=== PATIENT | female | born 1960 | race Caucasian/White ===

== ENCOUNTER → 2017-10-26 08:32 | Outpatient (CLI) | payer MEDICAID, SELFPAY ==
--- NOTE | 2017-10-26 08:25 | DI.REPORT_ITS ---
SYMPTOM/DIAGNOSIS: F/U RT KNEE. RIGHT KNEE: Three views. Comparison 01/15/08 In the medial femoral tibial joint space there is moderate joint space narrowing. subchondral sclerosis and periarticular spurring. Small osteophytes are seen at the posterior patella and lateral femoral tibial joint space. There is a small suprapatellar joint effusion. No acute fracture, dislocation , lytic or sclerotic lesion seen. The soft tissues are unremarkable. IMPRESSION: Moderate osteoarthritis of the right knee particularly involving the medial femoral tibial joint.
== END ==
PROVIDERS: Visit Provider Student in an Organized Health Care Education/Training Program
DX: M25.561 Pain in right knee (principal); M25.461 Effusion, right knee; M17.11 Unilateral primary osteoarthritis, right knee; M25.761 Osteophyte, right knee
CPT/HCPCS: 73562

== ENCOUNTER 2017-12-24 18:48 | Outpatient (REF) | payer MEDICAID, SELFPAY ==
[2017-12-26 15:12] LABS: Chlamydia Result Negative; GC Result Negative; Specimen Description CERVIX
== END 2017-12-24 19:08 ==
LOC: LBN 18:48
DX: N89.8 Other specified noninflammatory disorders of vagina (principal); Z11.3 Encounter for screening for infections with a predominantly sexual mode of transmission
CPT/HCPCS: 87491; 87591; 87480; 87510; 87660

== ENCOUNTER 2018-01-14 09:48 | Outpatient (CLI) | payer MEDICAID, SELFPAY ==
--- NOTE | 2018-01-14 09:41 | DI.RAD_ITS ---
SYMPTOM/DIAGNOSIS: LT KNEE PAIN LEFT KNEE: There are no prior comparison exams. There is moderate narrowing of the medial femoral tibial joint space and periarticular spurring and sclerosis. The lateral joint space shows mild spurring. The patellofemoral joint appears well maintained and shows minimal spurring. No joint effusion is seen. IMPRESSION: Moderate degenerative changes of the medial femoral tibial joint.
== END 2018-01-14 10:08 ==
PROVIDERS: Visit Provider Student in an Organized Health Care Education/Training Program
DX: M25.562 Pain in left knee (principal); M17.12 Unilateral primary osteoarthritis, left knee
CPT/HCPCS: 73562

== ENCOUNTER 2018-08-06 01:46 | Outpatient (CLI) | payer MEDICAID, SELFPAY ==
[2018-08-06 08:21] LABS: ALT 29 U/L (12-78); AST 13 U/L (15-37); Albumin 3.7 g/dL (3.4-5.0); Alkaline Phosphatase 81 U/L (46-116); Anion Gap 8.8 mmol/L (3-11); BUN 11 mg/dL (7-18); Bilirubin, Total 0.4 mg/dL (0.2-1.0); C-Reactive Protein 0.83 mg/dL (0.0-0.3); CO2 28.2 mmol/L (21.0-32.0); CREATININE 0.71 mg/dL (0.55-1.02); Chloride 103 mmol/L (98-107); Glucose 91 mg/dL (70-100); Potassium 4.2 mmol/L (3.5-5.1); Sodium 140 mmol/L (136-145)
[2018-08-06 08:33] LABS: Cholesterol 253 mg/dL (50-200); HDL Cholesterol 47 mg/dL (40-60); LDL CHOLESTEROL 166 mg/dL (<100); Triglyceride 202 mg/dL (30-150)
[2018-08-07 10:12] LABS: Rheumatoid Factor <8 IU/mL (<12.5)
== END 2018-08-06 02:06 ==
DX: E66.9 Obesity, unspecified (principal); I10 Essential (primary) hypertension; J30.2 Other seasonal allergic rhinitis; K21.9 Gastro-esophageal reflux disease without esophagitis; M25.50 Pain in unspecified joint; R53.82 Chronic fatigue, unspecified; E03.9 Hypothyroidism, unspecified
CPT/HCPCS: 36415; 80053; 80061; 83721; 86140; 86431

== ENCOUNTER 2018-08-14 01:46 | Outpatient (CLI) | payer MEDICAID, SELFPAY ==
--- NOTE | 2018-08-14 08:00 | DI.MAMMO_ITS ---
SYMPTOM/DIAGNOSIS: SCREENING, Z12.31 MAMMOGRAMS: Mammograms were interpreted according to the usual protocol including computer analysis with CAD system, tomosynthesis and C view imaging. Comparison is made with exams from [id number]. The breasts are composed of scattered fibroglandular densities, breast density, Category B. A biopsy marker clip is again noted in the central left breast. There are scattered benign calcifications in the left breast. No suspicious masses or suspicious microcalcifications are seen in either breast. IMPRESSION: Category 2, negative mammogram with benign findings. Yearly screening mammography is recommended. SA ASSESSMENT OF FINDINGS: Negative with benign findings. Category 2. Patient will receive a letter notifying them of these results. BI-RADS category B. There are scattered areas of fibroglandular density.
== END 2018-08-14 02:06 ==
DX: Z12.31 Encounter for screening mammogram for malignant neoplasm of breast (principal)
CPT/HCPCS: 77063; 77067

== ENCOUNTER 2018-11-04 12:07 | Day surgery (SDC) | payer MEDICAID, SELFPAY ==
--- NOTE | 2018-11-04 07:17 | W.PM.ENDDOP ---
Date of service: 11/04/18 Time of Service: 13:25 Endoscopy Report DATE OF PROCEDURE: 11/04/18 PRE-OP DIAGNOSIS: Colon Cancer Screening and GERD POST-OP DIAGNOSIS: other (Gastritis, esophagitis, cecal polyp) PROCEDURE: 1. EGD with bx 2. Colon with polypectomy by forceps SURGEON: Jossy Brunner ANESTHESIA: other (General/ ASA 2/ Francine Hutchinson, LOGISTICS SUPERVISOR) ESTIMATED BLOOD LOSS: 3 PATHOLOGY: other (gastric bx, GE junction bx, cecal polyp) COMPLICATIONS: None DISPOSITION: same day INDICATIONS: Mrs. Woo is a pleasant 58-year-old female who was seen in the office for her first screening colonoscopy as well as to discuss an upper endoscopy for history of GERD. Risks, benefits and complications have been reviewed. Complications include but are not limited to bleeding, pain, perforation, missed small lesion/polyp, sore throat, aspiration and adverse reaction to the medications. Questions were entertained and answered to their satisfaction and they wished to proceed. No guarantees were given or implied. PREP: Miralax/Dulcolax PROCEDURE START TIME: 13:25 PROCEDURE END TIME: 14:01 COLONOSCOPY RETRACTION TIME: 12 minutes FINDINGS: Moderate Gastritis and esophagitis small cecal polyp PROCEDURE DESCRIPTION: After informed consent was obtained the patient was take to the procedure room and placed in a supine position. Monitors were applied and a time out was done. The patients name, date of , procedure type, allergies to medications and metal in their body was reviewed. A bite block was placed and the patient was sedated. Once sedated and comfortable the gastroscope was advanced through the oropharynx which was grossly normal into the esophagus. The proximal and mid-esophagus were normal. In the distal esophagus there was moderate inflammation noted. The scope was advanced into the stomach and through the pylorus into the 3rd portion of the duodenum. The duodenum was noted to be normal. The scope was retracted back into the stomach and biopsies were done to rule out H. pylori. There were a couple of shallow ulcers. The scope was retroflexed. The cardia and fundus were noted to be normal. There was no hiatal hernia noted. The scope was retracted back into the esophagus and biopsies were done of the GE junction to rule out Rankin's. The Z line was regular. The GE junction was at 35 cm. While the patient was still sedated they were placed in a left decubitous position. A rectal exam was done. External exam was normal. Internal exam revealed a normal sphincter tone and no palpable masses. The scope was then introduced and retro-flexed. No internal hemorrhoids, masses or polyps were identified. The scope was then advanced to the cecum without difficulty. The TI and appendiceal orifice were identified. The prep was adequate. The scope was then slowly retracted over 12 minutes back into the rectum. One polyp was removed with cold forceps in the cecum. The scope was removed and the patient was woken up and taken back to Same day surgery in stable condition. The patient tolerated the procedure well and there were no immediate complications. Follow up: Follow up in the office in 2 weeks.
--- NOTE | 2018-11-04 07:20 | W.PM.DSUDISC ---
Discharge Plan Disposition Patient Disposition: HOME Condition: Good Discharge Details Reason For Visit: Colon Cancer Screening, GERD Attending Provider: Jossy Brunner Primary Care Provider: Darcie Cedeno Home Meds and New Rx's Prescriptions: New omeprazole 20 mg capsule,delayed release(DR/EC) 20 mg PO BID Qty: 60 RF: 0 Continued benzonatate [Tessalon Perles] 100 mg capsule 100 mg PO BID-TID PRN (Reason: cough) Qty: 60 RF: 0 meloxicam 15 mg tablet 15 mg PO DAILY Qty: 30 RF: 0 pravastatin 20 mg tablet 20 mg PO DAILY Qty: 90 RF: 3 lisinopril 10 mg tablet 10 mg PO DAILY Qty: 90 RF: 3 cetirizine [Zyrtec] 10 MG tablet 1 tab PO DAILY Qty: 90 RF: 4 EXCEDRIN MIGRAINE TABLET 1 EACH tablet 2 ea PO daily prn RF: 0 multivitamin with minerals [Hair,Skin and Nails] 1 EACH tablet 1 ea PO DAILY RF: 0 acetaminophen [Tylenol Extra Strength] 500 MG tablet 1,000 mg PO Q4H PRN RF: 0 halobetasol propionate 0.05 % cream 1 applic TP BID Qty: 50 RF: 1 Discontinued omeprazole 20 mg tablet,delayed release (DR/EC) 20 mg PO DAILY RF: 0 polyethylene glycol 3350 17 gram/dose powder 238 g PO ONCE Qty: 238 RF: 0 bisacodyl [Dulcolax (bisacodyl)] 5 mg tablet,delayed release (DR/EC) 5 mg PO ONCE Qty: 4 RF: 0 Discharge Instructions Instructions: Colonoscopy (GEN), Upper Endoscopy (GEN), Colorectal Polyps (GEN), Gastritis (ED), Diet for Stomach Ulcers and Gastritis (ED), Esophagitis (ED) Additional Instructions: Findings: Inflammation of the stomach and esophagus. Possibly some small shallow ulcers in the stomach Small polyp in the colon. Follow up: 2 weeks Other: The Meloxicam that you take daily may be giving you some of your Heart Burn symptoms. if you have to take it, take it with food. Try increasing the Omeprazole to 20 mg 2 x a day and see if this helps. Please call if you develop: fevers >101.5 Nausea or Vomiting Abdominal pain that is not transient DAY SURGERY UNIT POST COLONOSCOPY INSTRUCTIONS 1. Because there will be medication in your system for the next 24 hours, you may feel a little sleepy. Your coordination will be affected. Therefore: a. Do not drive or operate dangerous equipment for 24 hours. b. Do not drink alcohol beverages for 24 hours (not even beer). c. Plan to go home and rest for the day. 2. Generally there are no restrictions on your activity after a day or so has gone by, but you may feel a bit fatigued for a few days. 3 After you arrive home you may have a light meal and return to a normal diet as you can tolerate it without feeling sick to your stomach. 4. After surgery, you may feel pain or discomfort. This should be only transient, but if it persists please contact your doctor. 5. If there are any questions regarding the findings of your procedure, please feel free to contact your doctor. 6. If you are unable to contact your doctor with a problem, contact the hospital at [phone]. 7. Continue all your regular medications unless directed otherwise. I understand the above instructions and have no questions. Signature of Patient or Responsible Adult Escort Date/Time Name of Responsible Adult Escort Signature of Nurse Date/Time Activity:: Activity as Tolerated Diet:: low acid Discharge Orders Discharge Orders: Discharge Order (Routine); Ordered 11/04/18 Ordered By: Jossy Brunner DS: Diagnosis Discharge Diagnosis (1) S/P colonoscopy: (2) H/O esophagogastroduodenoscopy: (3) Gastritis determined by endoscopy: (4) Colorectal polyp detected on colonoscopy:
[2018-11-04 12:32] VITALS: BP 136/100; PULSE 92; RESP 18; TEMP 36.6; O2SAT 97
[2018-11-04] MEDS: Lactated Ringers 1,000 ML 80 ML IV (12:40)
--- NOTE | 2018-11-04 13:29 | STOM_PTH ---
PATIENT: Ehsan Woo V LOC: [facility] U#:[id number] AGE/SX: 58/F ROOM: RE11/04/[address]: Jossy Brunner MD : [id number] BED: DIS: 11/04/2018 SPEC #: [id number] RECD: 11/04/18 17:51 STATUS: GINGER RE #: [id number] LUIS: 11/04/18 13:[address]: Jossy Brunner DEPT: Surgical Specimen RECD BY: Em Mckeon ENTERED: 11/04/18 17:52 SP TYPE: STOMACH OTHR DR: Darcie Cedeno APRN Tissues: 1 - STOMACH BIOPSY 2 - ESOPHAGUS BIOPSY 3 - BIOPSY BOWEL Procedures: GROSS AND MICRO LEVEL 4 Comments: [id number]
[2018-11-04 14:40] VITALS: BP 136/80; PULSE 63; RESP 18; TEMP 36.3; O2SAT 97
== END 2018-11-04 15:14 | disposition home or self-care (01) ==
LOC: SUR 12:08
PROVIDERS: Visit Provider Surgery
PROC: (CPT 45380; principal; 2018-11-04 13:00)
DX: Z12.11 Encounter for screening for malignant neoplasm of colon (principal); K21.0 Gastro-esophageal reflux disease with esophagitis; K31.9 Disease of stomach and duodenum, unspecified; K22.70 Barrett's esophagus without dysplasia; D12.0 Benign neoplasm of cecum; K25.9 Gastric ulcer, unspecified as acute or chronic, without hemorrhage or perforation; I10 Essential (primary) hypertension
CPT/HCPCS: 45380; 43239; 88305

== ENCOUNTER 2018-11-11 10:03 | Outpatient (CLI) | payer MEDICAID, SELFPAY ==
--- NOTE | 2018-11-11 08:43 | DI.RAD_ITS ---
SYMPTOM/DIAGNOSIS: LEFT FOOT PAIN LEFT FOOT: 11/11 Three views were obtained. No significant bony or soft tissue abnormality is seen apart from mild degenerative changes of the IP joints.
== END 2018-11-11 10:23 ==
PROVIDERS: Visit Provider Physician Assistant
DX: M79.672 Pain in left foot (principal); M19.072 Primary osteoarthritis, left ankle and foot
CPT/HCPCS: 73630

== ENCOUNTER 2019-01-16 11:57 | Outpatient (CLI) | payer MEDICAID, SELFPAY ==
--- NOTE | 2019-01-16 10:30 | DI.US_ITS ---
EXAM: US LOWER EXTREMITY VENOUS LT CLINICAL HISTORY: leg edema left, R60.0, ? DVT TECHNIQUE: Ultrasound performed using standard protocol. COMPARISON: LEFT BREAST ULTRASOUND from 08/14/2012 FINDINGS: There is no evidence of DVT.
== END 2019-01-16 12:17 ==
PROVIDERS: Visit Provider Nurse Practitioner
DX: R60.0 Localized edema (principal)
CPT/HCPCS: 93971

== ENCOUNTER 2019-03-13 10:13 | Outpatient (CLI) | payer MEDICAID, SELFPAY ==
--- NOTE | 2019-03-13 10:41 | DI.RAD_ITS ---
EXAM: XR STANDING ALIGNMENT CLINICAL HISTORY: pre-operative planning for TKA TECHNIQUE: COMPARISON: No exams were available for comparison FINDINGS: Standing alignment views were obtained with at AP views of both lower extremities. There are mild de generative changes of both hips. There are severe degenerative changes of both knees predominantly i nvolving medial tibiofemoral joints. IMPRESSION:
== END 2019-03-13 10:33 ==
PROVIDERS: PCP Nurse Practitioner; Visit Provider Physician Assistant
DX: M17.0 Bilateral primary osteoarthritis of knee (principal); M16.0 Bilateral primary osteoarthritis of hip
CPT/HCPCS: 77073

== ENCOUNTER 2019-04-01 08:55 | Outpatient (CLI) | payer MEDICAID, SELFPAY ==
--- NOTE | 2019-04-01 07:59 | HPE_ITS ---
Assessment and Plan Assessment and plan (1) Osteoarthritis of right knee: Status: Chronic Assessment and plan: Plan: Educated patient on surgery covering surgical technique, recovery process, benefits and risks including but not limited to risk of infection, blood clot, damage to soft tissue/blood vessels/nerves in detail. After discussion patient gives verbal understanding of risks and elects to proceed with scheduling surgery. Patient and her had opportunity to have questions answered to their satisfaction. They will contact office if issues arise. Patient will continue to be scheduled for right total knee replacement with Dr. Bills. Qualifiers: Osteoarthritis type: primary Qualified Code(s): M17.11 - Unilateral primary osteoarthritis, right knee History of Present Illness Narrative: Ms. Woo is a 58-year-old female who presents to clinic with her for pre-operative visit for scheduled left TKA - but she desires her right knee to be done first. She continues to describe bilateral knee pain that is slightly worse in the right knee. Patient now describes bilateral knee pain as a diffuse constant aching pain. Pain continues to be aggravated with prolonged walking, when ascending stairs and in the evening. 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 Due to her blood pressure states she is only taking Tylenol extra strength as needed. Previously she has tried restricting activity, strengthening exercises, anti-inflammatory medication as well as series of injections without long lasting relief. Patient denies any recent falls or injuries. She denies muscle weakness, numbness or tingling. Due to her continued symptoms she was offered and elected to proceed with surgical intervention. Pertinent Surgical Information Last Sunday patient states that she had a gas bubble sensation in the center of her chest that felt like increased pressure when she woke up. Sensation was located in the center of her chest; denies radiation of discomfort. In addition states she experienced lightheadedness. States sensation lasted for a few hours before resolving without intervention. Discomfort did not worsen with activity. Reports Sunday was a bad day at work and she didn't want to go to work on Sunday. She continues to elaborate reporting numerous stories regarding her tension-filled work environment including being worried about her patient's safety and bad relationships among her bosses. Although, she denies any significant anxiety when she woke up that morning, she does report that she did have a strong desire to not attend work - I wanted to call out. States she has previously had a similar episode about 17 years ago that required over night in the hospital without any diagnosis; reports the episode was much more severe including dyspnea at rest, rapid pulse and her heart felt heavy. Denies any additional symptoms with her recent episode - please see negative cardiac ROS. 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 Denies any cardiac symptoms with those activities. Reports an intermittent stabbing pain in her left breast that is under the skin since having mastitis. Reports sensation lasts for about an hour before resolving. States on a monthly frequency for the last 34 (thirty-four) years. Denies any left sided deep chest pain; denies any additional cardiac history. Please see ROS for denies list of cardiac ROS. Based on patient's history and physical examination I do not see any obvious signs for ordering any additional work-up. However, due to patient's reported concerns the nurse mine safety director department was contacted. Thoroughly discussed patient's case in detail. Nurse mine safety director team will meet with patient if they deem necessary and order any additional work-up that they require. She thinks that she was told she had a gastric ulcer by her general surgeon which is why she now takes food with her medication. Please see ROS - Denies any gastrointestinal/abdominal ROS. Denies past medical history of: stroke, known cardiac issues, asthma, COPD, sleep apnea, renal issues, liver issues, hepatitis, gastrointestinal ulcers, bleeding disorders, seizures, anxiety, diabetes, autoimmune disorders, thyroid issues Denies prior complications from surgery or anesthesia. Review of Systems Constitutional Constitutional: Denies fever(s), Denies frequent falls and Reports headache(s) Eyes Eyes: Denies change in vision ENT Ears, Nose, Mouth, and Throat: Denies dizziness, Reports ear discharge (reports ear infection in January - has fully resolved), Reports headache(s), Denies epistaxis, Reports nasal discharge (clear discharge due to allergies; no change) and Denies sore throat Cardiovascular Cardiovascular: Denies chest pain, Denies chest pain at rest, Denies chest pain with activity, Denies diaphoresis, Denies syncope, Denies rapid heart rate, Denies irregular heart rhythm, Reports lightheadedness, Denies radiating jaw, neck or arm pain, Denies palpitations, Denies dyspnea, Reports dyspnea on exertion (due to increased weight with increased walking activity), Denies orthopnea, Denies paroxysmal nocturnal dyspnea and Denies slow heart rate Respiratory Respiratory: Reports cough (dry cough), Denies dyspnea, Reports dyspnea on exertion (due to increased weight with increased walking activity) and Denies wheezing Gastrointestinal Gastrointestinal: Denies abdominal pain, Denies melena, Denies hematochezia, Denies constipation, Denies diarrhea, Denies nausea and Denies vomiting Genitourinary Genitourinary: Denies hematuria, Denies dysuria and Denies urinary urgency Musculoskeletal Musculoskeletal: Reports as per HPI, Denies numbness and Denies tingling Neurologic Neurologic: Denies dizziness, Denies syncope, Denies frequent falls, Reports headache(s), Denies numbness and Denies tingling Psychiatric Psychiatric: Denies anxiety and Denies depression Endocrine Endocrine: Denies palpitations Allergic/Immunologic Allergic/Immunologic: Denies wheezing [facility] Medical History (Updated 04/01/19 @ 09:17 by Luis Fernando Maher) Rankin's esophagus determined by biopsy (Acute ~11/04/18) As per patient states she does not have it Colorectal polyp detected on colonoscopy (Acute) Concern about sexually transmitted disease in female without diagnosis (Resolved) Elevated cholesterol (Chronic) Essential hypertension (Chronic) Gastritis determined by endoscopy (Acute ~11/04/18) GERD (gastroesophageal reflux disease) (Acute 12/22/13) PT. STATES HORRIBLE GAG REFLEX Obesity (Chronic) Osteoarthritis of left knee (Chronic) Injected: 08/09/2018 Synvisc: 09/23/2018 Osteoarthritis of right knee (Chronic) Injected: 08/09/2018 Synvisc: 09/23/2018 Seasonal allergic rhinitis (Acute 12/22/13) pt. reports hemp causes this Tubular adenoma of colon (Acute ~11/04/18) Vaginal dryness (Chronic) Surgical History Appendectomy section X 3 H/O esophagogastroduodenoscopy (Chronic ~11/04/18) Hysterectomy, Laproscopic (~1991) STILL HAS RIGHT OVARY S/P colonoscopy (Acute ~11/04/18) Social History (Updated 03/06/19 @ 11:29 by Shirley Carranza) Smoking/Tobacco Use Status: Former Tobacco Use Quit Date: 03/26/02 Tobacco: How many years used: 20 Second Hand Exposure: Yes Alcohol Intake: never Drug use: Never Substance use type: does not use Caregiver/Support person: No Foster care: No Household members: spouse Housing: house Communication Needs: None Do you need help understanding health information?: Rarely Pets and animals: Yes Pets and animals: cat(s) and dog(s) Sexually active: No Do you think of yourself as: straight/heterosexual Current gender identity: female What is your relationship status?: How often do you talk on the phone with friends or family?: decline to answer How often do you get together with friends or relatives?: decline to answer How often do you attend congregation or rastafarian services?: decline to answer Do you belong to any clubs or organized social groups?: no Panel score (0-1 are the most socially isolated patients): 1 What type of physical activity do you participate in: decline to answer Duration: decline to answer Frequency: decline to answer Rachel/Zoroastrianism: Denominational Special rachel needs: Yes Helmet use: No Drive intox or ride w/intox charter and tour bus driver: No Additional Social history: UNABLE TO OBTAIN ANSWER, SPOUSE IN ROOM Meds Home Medications and Allergies Home Medications Medication Instructions Recorded Confirmed Type cetirizine [Zyrtec] 1 tab PO DAILY #90 tab 06/26/12 04/01/19 History Excedrin Migraine Tablet 2 ea PO daily prn 03/24/13 04/01/19 History multivitamin with minerals 1 ea PO DAILY 08/01/17 04/01/19 History [Hair,Skin and Nails] acetaminophen [Tylenol Extra 1,000 mg PO Q4H PRN tab-cap 10/26/17 04/01/19 History Strength] pravastatin 20 mg tablet 20 mg PO DAILY #90 tab 08/08/18 04/01/19 Rx meloxicam 15 mg tablet 15 mg PO DAILY #30 tab 11/11/18 04/01/19 Rx omeprazole 20 mg capsule,delayed 20 mg PO BID #60 cap 11/29/18 04/01/19 Rx release lisinopril 20 mg tablet 20 mg PO DAILY #90 tab 03/11/19 04/01/19 Rx Allergies Allergy/AdvReac Type Severity Reaction Status Date / Time adhesive Allergy Intermediate SKIN Verified 04/01/19 09:27 RASH/blisters codeine AdvReac Intermediate NAUSEA Verified 04/01/19 09:27 NSAIDS (Non-Steroidal AdvReac Unknown GI Verified 04/01/19 09:27 Anti-Inflamma oxycodone AdvReac Unknown LOOPY Verified 04/01/19 09:27 hemp Allergy sneezing, Uncoded 04/01/19 09:27 coughing Perfume AdvReac Mild Sinus Uncoded 04/01/19 09:27 congestion Exam Const General: cooperative and no acute distress [facility] Head: normal to inspection, normocephalic and atraumatic Ears: external ears normal General nose exam: external nose normal and no nasal discharge Face and sinus: face symmetric Mouth: oral mucosae normal, lip normal, tongue normal and moist mucous membranes Teeth and gingiva: dentition normal Throat: posterior oropharynx normal Eyes General: appearance normal, both eyes and all related structures Pupils: PERRL EOM: EOM intact bilaterally Neck Neck: trachea midline Carotids: normal carotid upstroke Lymphatic: no lymphadenopathy noted Resp Effort & Inspection: normal respiratory effort and able to speak in complete sentences Auscultation: clear to auscultation bilaterally, no rales, no rhonchi and no wheezes Cardio Rate: regular rate Heart Sounds: S1 normal, S2 normal and no murmurs Pulses: radial pulses present bilaterally GI Palpation: soft, no hepatosplenomegaly and nontender Auscultation: normal bowel sounds Skin General skin exam: no rashes or lesions noted Results Labs Result diagrams: 04/01/19 10:35 04/01/19 10:35
[2019-04-01 10:48] LABS: HCT 40.4 % (36.0-46.0); HGB 13.2 g/dL (12.0-15.5); Mean Corp. HGB Concentration 32.7 g/dL (32.0-36.0); Mean Corpuscular Hemoglobin 28.5 pg (27.0-33.0); Mean Corpuscular Volume 87.3 fL (80-95); Mean Platelet Volume 9.7 fL (8.0-11.0); Platelet Count 342 x1000/uL (130-400); RBC 4.63 m/cumm (4.00-5.20); RBC Distribution Width 12.6 % (11.7-14.6); White Blood Cell Count 7.86 k/cumm (4.4-10.8)
[2019-04-01 11:35] LABS: ALT 28 U/L (14-59); AST 22 U/L (15-37); Albumin 3.8 g/dL (3.4-5.0); Alkaline Phosphatase 90 U/L (46-116); Anion Gap 8.2 mmol/L (3-11); BUN 10 mg/dL (7-18); Bilirubin, Total 0.2 mg/dL (0.2-1.0); CO2 29.8 mmol/L (21.0-32.0); CREATININE 0.73 mg/dL (0.55-1.02); Calcium 8.8 mg/dL (8.5-10.1); Calculated LDL 117 mg/dL; Chloride 104 mmol/L (98-107); Cholesterol 199 mg/dL (<200); Glucose 100 mg/dL (74-106); HDL Cholesterol 41 mg/dL (40-60); Potassium 4.5 mmol/L (3.5-5.1); Sodium 142 mmol/L (136-145); Total Protein 7.1 g/dL (6.4-8.2); Triglyceride 205 mg/dL (<150)
== END 2019-04-01 09:15 ==
PROVIDERS: PCP Nurse Practitioner; Visit Provider Student in an Organized Health Care Education/Training Program
DX: M25.562 Pain in left knee (principal); M17.12 Unilateral primary osteoarthritis, left knee; E78.00 Pure hypercholesterolemia, unspecified; I10 Essential (primary) hypertension; K21.9 Gastro-esophageal reflux disease without esophagitis; Z01.818 Encounter for other preprocedural examination; Z01.812 Encounter for preprocedural laboratory examination
CPT/HCPCS: 36415; 80053; 80061; 85027; NC; 93005; 93010

== ENCOUNTER 2019-04-08 05:53 | Inpatient (IN) | payer MEDICAID, SELFPAY ==
[2019-04-01 08:48] VITALS: BP 118/84; PULSE 78; TEMP 36.7; O2SAT 97
[2019-04-01 09:37] VITALS: BP 118/84; PULSE 78; TEMP 36.7; O2SAT 97
--- NOTE | 2019-04-01 11:31 | CMPROGNOTE_ITS ---
- If Service Date Differs Date of service: 04/01/19 Time of Service: 11:31 Care Management Progress Note CM was consulted to meet with Katherine during her pre op appointment for her R knee replacement scheduled for 04/08/[address] Bills. Katherine's , Manuel, was in the room also. 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 Katherine and Manuel live together in a ranch style home with two steps to get in. They have a beagle and two cats. They have five adult children who live in various places, but not locally. She reported that Manuel would be her main support post surgically. Katherine reported that she recently switched providers to Melita Anne at [facility]. She has [facility] for health insurance. She reported that she has filled out an AD, but it did not get registered with the [facility]. She stated that she would bring in a copy for her [facility] chart. She stated that she has crutches, a cane and a regular walker (no wheels). CM advised that PT often recommends a FWW, which may be covered by her insurance. CM stated that obtaining a FWW would be coordinated by CM prior to discharge. Katherine expressed interest in signing up for the portal, which CM will address at Katherine's initial assessment.
[2019-04-02] MEDS: Ketorolac 30 MG/ML VIAL (09:55)
[2019-04-08] VITALS (13 sets, daily range): BP systolic 98–147; BP diastolic 48–94; PULSE 58–91; RESP 13–19; TEMP 36.4–37; O2SAT 18–96
[2019-04-08] MEDS: Lactated Ringers 1,000 ML 80 ML IV ×2 (06:50→12:22)
[2019-04-08] MEDS: Acetaminophen 500 MG TAB 1000 MG PO ×3 (07:01→19:40)
[2019-04-08] MEDS: Bupivacaine 0.5% Pres-Free 30 ML VIAL (07:21)
[2019-04-08] MEDS: ceFAZolin 2 GM/50 ML BAG IVPB (07:45)
[2019-04-08] MEDS: Normal Saline 20 ML VIAL (08:55)
[2019-04-08] MEDS: Bupivacaine 0.25% Pres-Free 30 ML VIAL (08:55)
--- NOTE | 2019-04-08 10:24 | W.PM.OP ---
Date of service: 04/08/19 Time of Service: 10:24 Operative Note Operative Note DATE OF PROCEDURE: 04/08/19 PRE-OP DIAGNOSIS: Right Knee Osteoarthritis POST-OP DIAGNOSIS: same PROCEDURE: Right Total Knee Replacement SURGEON: Rick Bills BOILER TESTING TECHNICIAN: Eulalia Burris ANESTHESIA: regional and spinal ESTIMATED BLOOD LOSS: 250 PATHOLOGY: none sent TOURNIQUET TIME: 31 COMPLICATIONS: None Patient was transported to: PACU Patient's condition: stable Implants: 1. Depuy Attune Posterior Stabilized Femoral Component, Size 4 2. Depuy Attune Fixed Platform Tibial Component, Size 3 3. Depuy Attune 4x8 Fixed, Stabilized Poly 4. Depuy Attune Patellar Component, Size 32mm Indications: I have seen Katherine in clinic for symptoms of RIGHT knee arthritis, confirmed with radiographic findings. Katherine has exhausted nonoperative methods and was having significant limitations in daily function and desired better function and less pain. I discussed the technical details of a knee replacement. I explained the risks of the procedure to include, but not limited to, bleeding, infection, pain, stiffness, fracture, damage to nerves and vessels, damage to muscles and tendons, loosening, need for repeat procedure, blood clot and cardiopulmonary demise. Despite these risks, Katherine elected to proceed. Findings: There was significant signs of arthritis throughout the knee,focused mostly in the medial compartment. Procedure Description: Katherine was greeted in the preoperative holding area where the correct side was identified and marked. The consent was reviewed with the patient and signed. The history and physical was updated. All questions were answered. Preoperative mediacations were administered: Acetaminophen 1000mg, Celebrex 400mg, and Gabapentin 300mg. An adductor canal block was then administered by the anesthesia team in the PACU. Katherine was taken back to the operating room. A spinal anesthestic was then administered. The patient was placed into the supine position on the operating room table. A nonsterile tourniquet was placed high onto the leg but only used for cementing. Posts were placed for positioning during the procedure. All bony prominences were well padded. Prophylactic antibiotics in the form of Cefazolin were administered. 1g of Tranxemic Acid was given intravenously within 30 minutes of incision. The right leg was then prepped with Chloraprep and draped in a standard fashion with impervious stockinette. A second prep with Chloraprep was performed prior to application of Iodine impregnated skin protection. A timeout to confirm correct identity, side and site, procedure, allergies, anesthesia, and medical concerns was performed. With the knee in some flexion, a midline incision was made overlying the knee. Full thickness skin flaps were raised once the extensor mechanism was encountered. These were raised medially and laterally. Any bleeding was controlled with electrocautery. Once the extensor mechanism was fully exposed, a medial parapatellar arthrotomy was performed in a flexed position. All bleeding from the arthrotomy and the geniculate arteries was coagulated. A medial subperiosteal peel was performed with electrocautery to the midcoronal plane. Due to the significant varus deformity the entire medial tibial plateau was exposed. The fat pad was removed while keeping the patellar tendon protected. The anterior distal femur synovium was removed for later visualization. The ACL and PCL were resected and the anterior horn of the lateral meniscus was transected. The knee was then flexed with the patella everted. Large osteophytes from the tibia were removed. Large osteophytes from the femur were removed. Using a step drill, and based on preoperative templating, the femoral canal was entered. This was done with a step drill without any difficulty. The intramedullary distal femoral cut guide was inserted, set to a 5 degree valgus cut and 9mm cut thickness. The distal femoral cut guide was then held in position and pinned. With the soft tissues protected, the distal cut was performed. This was passed over a few times to ensure a planar cut. I then turned attention to the tibia. The extramedullary guide was placed onto the leg. The distal aspect was slid medial to adjust for position of center of ankle and stay in line with shaft of the tibia. Approximately 3-5 degrees of posterior slope was kept in the proximal cutting guide. The center of the guide was aligned with the PCL. The stylus was used to assess cut thickness. The medial side, most involved side, was set for a 4mm cut. This was then held in position and pinned into place with 2 additional pins and a cross pin for stability. The medial and lateral collateral ligaments were protected and the cut was performed. With this completed, it was assessed and noted to be of appropriate dimensions. The guide was removed. A spacer block was inserted and the knee was brought into extension. The 6mm spacer block provided full extension, without hyperextension and with stability of both the medial and lateral collateral ligaments was assessed. The pins from the femur and the tibia were then removed. The distal femur was then sized. The anterior stylus was placed onto the lateral ridge of the anterior femur. This indicated a size 4 femur. The external rotation of the guide was adjusted to 3 degrees to match the epicondylar axis, perpendicular to Banks?s line. The 4-in-1 cutting guide was the placed. The posterior medial femur cut was evaluated and appeared of good thickness. The spacer block was inserted underneath the cutting guide and stability was confirmed in 90 degrees of flexion. An raghavendra wing was used to confirm appropriate position of the anterior cut to avoid notching. This cutting guide was ensured to be flush on the cut surface and then pinned into place with headed pins. While protecting the soft tissues, quad tendon, and collateral ligaments, the anterior and posterior cuts were performed with a saw. The central two pins were removed and the posterior and anterior chamfers were cut next. The notch-cutting guide was placed. This was pinned to lateralize the femoral component as much as possible while keeping it flush on the cut surface. This was then pinned into position. A reciprocating saw was used to make the notch cut. A rasp smoothed the cut surfaces. A bone hook was used to elevate the femur and posterior osteophytes were removed from the femur with a curved osteotome. A trial posterior stabilized femoral component was then inserted, impacted down to the cut surfaces, and the lug holes were drilled. A provisional trial tibial component was placed and the knee was brought through range of motion. The polyethylene was trialed until there was good flexion and extension with excellent stability to the medial and lateral collaterals. The patella was tracking without thumbs. The tibial cut surface was fully exposed. The medial and lateral menisci were removed. The tibia was then sized as a 3. The tibia had been previously marked during trialing to correspond to the center of the tibial component to help with rotation. The trial was aligned to this eulalia, approximately rotated to the medial 1/3rd of the tibial tubercle. The trial was pinned into place. The tibia was prepared with a reamer and a keel punch. The knee was then brought into extension and the patella was measured as 22mm. Using the patellar clamp and cut guide, this was resected to a flat surface with at least 13mm of thickness remaining. The size 32mm patella fit the best. This was oriented and then clamped into position. The lugs were drilled. The trial components were removed. The final components, except for the polyethylene were opened on the back table. The periosteal and capsular tissues, especially posteriorly, around the knee were then systematically injected with a periarticular cocktail consisting of 50cc 0.25% Marcaine, 30mg Ketorolac, 20cc of Exparal and 50cc of injectable saline. The tourniquet was then inflated to 275mmHg. The knee was thoroughly irrigated with a pulse lavage and dried. On the back table, with the implants opened, the cement was mixed. 2 batches of antibiotic laden cement were prepared with vacuum assistance. After the cement was ready a small amount was placed on to the back side of the tibial component at the keel. A small amount was placed onto the posterior flange of the femur. Cement was manual pressurized and impregnated into the cut surface of the tibia. The tibial component was then inserted into the cut surface and impacted into position. Excess cement was removed and the component was reimpacted. Again, excess cement was removed and our attention was then turned to the femur. The femoral cut surface was once again dried and cement was manually impacted into the cut surface. The femoral component was lined with the lug holes and impacted. Excess cement was removed. It was ensured to be down against the cut surface. The trial polyethylene was then inserted and the leg was brought out into full extension for the duration of the cement curing process, approximately 15min. Cement was lastly manually impacted into the cut surface of the patella and the patellar button was clamped into position and held. During this process attention was turned to the gutters of the knee and for all interfaces for any excess cement. While the cement was hardening, the knee was irrigated with Irrisept chlorhexadine solution. This was allowed to sit in the knee for 3 minutes. After the cement had finally cured, approximately 15min, the clamp was removed from the patella and the knee was taken through range of motion. A size 8mm polyethylene component provided the best range of motion and stability with less than 2mm gapping with medial and lateral stress and full extension without significant hyperextension. The patella was tracking with a no-thumbs technique. The trial poly was removed and once again the knee was checked for any loose, excess, or errant cement. The poly component was then inserted and impacted into position after cleaning and drying the tibial tray. The capsule was then reapproximated with a No. 1 Vicryl at multiple locations. The capsule was finally closed with a No. 2 Stratafix, barbed suture. The tourniquet was then released and the arthrotomy appeared watertight without significant bleeding. The second dosing of 1g TXA was started. Deep tissues were then reapproximated with 0 Vicryl and 2-0 Vicryl. The skin was closed with a running 3-0 Monocryl in a subcuticular fashion. This was reinforced with skin glue. A Mepilex silver dressing was applied along with a [id number] JEANNETTE wrap. A CryoCuff was applied. Katherine was transferred to the hospital bed without difficulty an suffering no apparent complication. Katherine has a good prognosis. Physical therapy will start today and without restrictions, weight-bearing as tolerated. Aspirin 81mg BID will be used for DVT prophylaxis.
--- NOTE | 2019-04-08 12:28 | NUR.NOTE ---
Nursing Note: 1045;Pt to room 226 via stretcher from PACU post RTKA. Pt able to slightly wiggle toes to operative foot. Pts states she feels tingly on the operative side. Pt denies pain. Lungs are clear, VSS. Cryocuff on from PACU. right leg with tammie wrap, CDI. Spouse in room. Operative leg elevated on pillow. SCD on non operative leg. Pt requesting to have a drink. LR running @ 80 ml/hr as ordered. IV sites patent.
--- NOTE | 2019-04-08 13:30 | IN_ITS ---
Date of service: 04/08/19 Time of Service: 13:30 PT Notes Physical Therapy Inpatient Initial Evaluation Date: 04/08/2019 Referring Doctor: Rick Haque MD PT Orders: PT CONSULT: S/P ortho surgery Precautions: Fall. Standard. WBAT on R LE. Patient Profile/Admitting Diagnosis: Pt is a 58-year-old female with a history of knee osteoarthritis presenting status post right TKA. PMHX: Medical History (Updated 04/01/19 @ 09:17 by Luis Fernando Maher) Rankin's esophagus determined by biopsy (Acute ~11/04/18) As per patient states she does not have it Colorectal polyp detected on colonoscopy (Acute) Concern about sexually transmitted disease in female without diagnosis (Resolved) Elevated cholesterol (Chronic) Essential hypertension (Chronic) Gastritis determined by endoscopy (Acute ~11/04/18) GERD (gastroesophageal reflux disease) (Acute 12/22/13) PT. STATES HORRIBLE GAG REFLEX Obesity (Chronic) Osteoarthritis of left knee (Chronic) Injected: 08/09/2018 Synvisc: 09/23/2018 Osteoarthritis of right knee (Chronic) Injected: 08/09/2018 Synvisc: 09/23/2018 Seasonal allergic rhinitis (Acute 12/22/13) pt. reports hemp causes this Tubular adenoma of colon (Acute ~11/04/18) Vaginal dryness (Chronic) Surgical History Appendectomy section X 3 H/O esophagogastroduodenoscopy (Chronic ~11/04/18) Hysterectomy, Laproscopic (~1991) STILL HAS RIGHT OVARY S/P colonoscopy (Acute ~11/04/18) Social History/Home Situation: Pt lives at home with her . Notes that there is one step and a small threshold into the home. Once in her home there are no stairs other than to the basement, but no reason for her to need to use. Equipment Owned/DME: Cane Subjective: Pt reports that she is not experiencing any pain with lying in bed. She notes that she has had a headache prior to surgery that is beginning to improve from a 10/10 to a 6/10. She notes that she is planning to have a left TKA as well. Objective: General Observation: Smith catheter in place, IV in LUE. Mental Status: alert and oriented x4 Pain: 0/10 at rest Vital Signs: Supine: BP 134/71 mmHg, HR 81, SpO2 96% Sitting: BP 141/87 mmHg, HR 80, SpO2 96% Standing: BP 134/74 mmHg, HR 80, SpO2 96% ROM: Right Upper Extremity: Shoulder Flexion WFL. Shoulder abduction WFL. Elbow flexion WFL. Wrist flexion WFL. Opening and closing of hand WFL. Left Upper Extremity: Shoulder Flexion WFL. Shoulder abduction WFL. Elbow flexion WFL. Wrist flexion WFL. Opening and closing of hand WFL. Right Lower Extremity: Hip flexion WFL. Hip abduction WFL. Knee flexion 90 degrees. Knee extension -20 degrees. Pt was able to complete 10 SLR without difficulty. Ankle dorsiflexion WFL. Ankle plantarflexion WFL. Left Lower Extremity: Hip flexion WFL. Hip abduction WFL. Knee flexion WFL. Ankle dorsiflexion WFL. Ankle plantarflexion WFL. Strength: Right Upper Extremity: Shoulder flexors 5/5. Shoulder abductors 5/5. Elbow flexors 5/5. Elbow extensors 5/5. Call Center Professional strong. Left Upper Extremity: Shoulder flexors 5/5. Shoulder abductors 5/5. Elbow flexors 5/5. Elbow extensors 5/5. Call Center Professional strong. Right Lower Extremity: Hip flexors 4/5. Hip abductors 5/5. Knee flexors 4+/5. Knee extensors 3-/5. Ankle dorsiflexors 5/5. Ankle plantarflexors 5/5. Left Lower Extremity: Hip flexors 5/5. Hip abductors 5/5. Knee flexors 5/5. Knee extensors 5/5. Ankle dorsiflexors 5/5. Ankle plantarflexors 5/5. Sensation: Intact as to pain and pressure on bilateral lower extremities. Bed Mobility/Transfers: Rolling independent Supine to sit independent with HOB flat Sit to supine independent with HOB flat Sit to stand SBA with cues to push up from bed Stand to sit SBA with cues to push up from bed Bed to chair SBA Chair to bed SBA Gait: Pt was able to ambulate WBAT 60 feet x2 using a two-wheeled walker. Step to pattern with decreased obdulia. Asymmetrical length and height of step. CGA by PT and wheelchair follow by student PT. Pt required a seated rest break after 60 feet of ambulation due to fatigue. Pt complains of ?aching? pain, but no significant increases in pain. Balance: Static Sitting: Normal Dynamic Sitting: Normal Static Standing: Fair Dynamic Standing: Fair Special Tests: Mobility Limitations Standardized Measure [facility] AM-PAC 6 clicks Basic Mobility Inpatient Short Form: Raw Score: 22 CMS Score: 21 deficit Informed Consent/Education: Patient instructed in purpose of PT consult and plan of care. HEP including glute sets, quadricep sets, ankle pumps. Assessment: Pt is a 58-year-old female with history of knee osteoarthritis presenting status post right TKA. At the time of initial evaluation, the patient presented with impairment level findings and functional limitation as listed below. Pt would benefit from skilled physical therapy for safe return to home. Patient presents with clinical signs and symptoms consistent with current/admitting diagnoses that have resulted to mobility limitations, gait instability and generalized weakness as demonstrated by the following impairment level findings: 1. Decreased strength to R LE hip and knee muscle groups 2. Impaired sitting/standing balance 3. Impaired activity tolerance 4. Limitation of joint range of motion in right knee Impairments are contributing to the following functional limitations: 1. Increased dependence with transfers 2. Inability to safely ambulate without assistive device and physical assistance 3. Increase completion time for mobility ADL performance 4. Increased fall risk 5. Inability to negotiate steps alone safely Patient is assessed as a 36429 moderate complexity based on the following: History: Pt is a 58-year-old female with history of knee osteoarthritis presenting status post right TKA. Examination: Demonstrable impairment in strength, balance, and range of motion with underlying impairments and functional limitations as documented above Presentation: Evolving Decision Makin moderate complexity Goals: Goals X1 week 1. Sit-Stand independent 2. Stand-Sit independent 3. Bed-Chair independent 4. Chair-Bed independent 5. Independent gait on level surface with use of least restrictive device for at least 300 feet without report of pain nor dyspnea 6. Independent stair negotiation while holding onto bilateral rails for at least 5 steps without report of pain nor dyspnea 7. Independent with home exercise program 8. Good dynamic standing balance/tolerance Plan of Care/Treatment Plan: 1-2x/day, 7 days/week x 1 week. Plan of care has been reviewed with the PRINTING SUPERVISOR providing the service under Physical Therapy direction. Initiate Physical Therapy intervention for strengthening, bed mobility, transfers, gait, stairs, balance training, use of assistive device. DISCHARGE RECOMMENDATIONS: Discharge to home with two-wheeled walker when medically cleared. TREATMENT CODE/TIME: 77286 x 45 minutes beginning at 13:30 PM. Thank you very much for this referral. Migdalia Tejada, SPT Doctor of Physical Therapy Student [facility] Supervision provided by: iMma Machado PT, DPT, CLT [facility] [place], [place]
[2019-04-08] MEDS: ceFAZolin 1 GM/50 ML BAG IVPB (14:05)
[2019-04-08] MEDS: Omeprazole 20 MG CAPCR PO (19:41)
[2019-04-08] MEDS: Aspirin E.C. 81 MG TABEC PO (19:41)
[2019-04-08] MEDS: Meloxicam 15 MG TAB PO (19:41)
[2019-04-08] MEDS: Pravastatin 20 MG TAB PO (19:41)
[2019-04-08] MEDS: ceFAZolin 1 GM/50 ML BAG 100 GM (22:02)
[2019-04-08] MEDS: Gabapentin 300 MG CAP PO (22:03)
[2019-04-09] MEDS: Lactated Ringers 1,000 ML 80 ML IV (01:25)
[2019-04-09 03:35] VITALS: BP 121/81; PULSE 82; RESP 16; TEMP 37.1; O2SAT 95
[2019-04-09] MEDS: ceFAZolin 1 GM/50 ML BAG IVPB (05:45)
[2019-04-09 07:25] VITALS: BP 115/84; PULSE 92; RESP 17; TEMP 36.4; O2SAT 95
[2019-04-09] MEDS: Acetaminophen 500 MG TAB 1000 MG PO (07:53)
[2019-04-09] MEDS: Omeprazole 20 MG CAPCR PO (07:56)
[2019-04-09] MEDS: Cetirizine 10 MG TAB PO (07:56)
[2019-04-09] MEDS: Multivitamin w/Minerals TAB 1 TAB PO (07:56)
[2019-04-09] MEDS: Aspirin E.C. 81 MG TABEC PO (07:56)
[2019-04-09] MEDS: Meloxicam 15 MG TAB PO (07:56)
--- NOTE | 2019-04-09 09:46 | PT.INTREAT ---
Date of service: 04/09/19 Time of Service: 09:47 PT Notes Inpatient Physical Therapy Treatment Note [facility] Date: 04/09/2019 PRECAUTIONS: Fall, WBAT R SUBJECTIVE: Ehsan is agreeable to participating in PT. She states that she is going home today. OBJECTIVE: PAIN: Patient c/o aching in posterior R knee with activity BED MOBILITY/TRANSFERS Sit-stand: S with cueing for safety Stand-sit: S with cueing for safety GAIT Assistive Device: FWW Weight bearing: WBAT R Assist: S Distance: 50' + 100' Deviation: Step-through gait pattern, cues for continuous FWW advancement THEREX: Patient completed a LE strengthening program, in a seated position, as per flow sheet. STAIRS: Up/down 6x4 and 2x6 using B rails step-to with supervision ASSESSMENT: Patient tolerated session with complaint of posterior knee aching with activity. She was able to tolerate a progression in gait distance with FWW support and supervision. PLAN: As per primary PT TREATMENT CODE/TIME: 25 minutes; 67488, [id number]
--- NOTE | 2019-04-09 09:56 | W.PM.DS.N ---
Date of service: 04/09/19 Time of Service: 09:56 DS: Diagnosis Discharge Diagnosis (1) Osteoarthritis of right knee: Status: Chronic Discharge Plan Disposition Patient Disposition: HOME Condition: Good Discharge Details Reason For Visit: Right Knee DJD Admit Date/Time: 04/08/19 05:53 Admit Provider: Rick Bills Attending Provider: Rick Bills Primary Care Provider: Melita Anne Hospital Course Hospital Course: Patient was admitted to the medical/surgical floor following the procedure. It was tolerated well without any notable medical, surgical, or anesthetic complications. Mobilization began postoperatively. The olivo catheter was removed and voiding spontaneously. Vitals were stable. Physical therapy worked with the patient and was cleared for discharge home. No acute medical issues. Home Meds and New Rx's Prescriptions: New aspirin 81 mg tablet,delayed release (DR/EC) 81 mg PO BID Qty: 60 RF: 0 acetaminophen 500 mg tablet 1,000 mg PO Q8H PRN (Reason: pain) Qty: 90 RF: 3 hydromorphone 2 mg tablet 2 mg PO Q4H PRN (Reason: pain) Qty: 18 RF: 0 gabapentin 300 mg capsule 300 mg PO QHS Qty: 7 RF: 0 Continued omeprazole 20 mg capsule,delayed release(DR/EC) 20 mg PO BID Qty: 60 RF: 5 cetirizine [Zyrtec] 10 mg tablet 10 mg PO DAILY Qty: 90 RF: 3 lisinopril 20 mg tablet 20 mg PO DAILY Qty: 90 RF: 3 EXCEDRIN MIGRAINE TABLET 1 EACH tablet 2 ea PO daily prn RF: 0 multivitamin with minerals [Hair,Skin and Nails] 1 EACH tablet 1 ea PO DAILY RF: 0 pravastatin 20 mg tablet 20 mg PO QPM RF: 0 meloxicam 15 mg tablet 15 mg PO DAILY Qty: 30 RF: 6 Discontinued acetaminophen [Tylenol Extra Strength] 500 MG tablet 1,000 mg PO Q4H PRN RF: 0 Discharge Instructions Additional Instructions: Dr. Bills?s Total Knee Discharge Instructions Activity: The most important activity is to walk. You should try to take short walks a few times a day. It is important that when resting you work on keeping the knee straight. Avoid putting a pillow behind the knee as this will encourage flexion. Work on range of motion exercises as provided by Physical Therapy. - Start outpatient physical therapy within 2 weeks. - You should wear the ELIZABETH hose on both legs for 2 weeks. Dressing: Keep the surgical dressing in place for at least one week. After the first week it may be removed and replace with light gauze and tape or nothing. It may get wet after 3 days but avoid soaking the dressing. If it gets wet, just lightly pat dry. Medications: - You should take Tylenol (1000mg every 6-8 hours) and anti-inflammatory Meloxicam (15mg once a day) as your primary pain control medications - You have been prescribed a stronger pain medication Hydromorphone for breakthrough pain, take as needed as prescribed. - You should continue to take your Omeprazole to help reduce stomach acid and reflux. - You also have Gabapentin to take at night for a week. This helps with some of the restlessness and sleep issues within the first week. - You will be taking Aspirin 81mg twice a day for DVT prevention unless instructed otherwise. - If you have constipation you should take Colace or Miralax (both [id number]). It takes most people 3-4 days to have a bowel movement. Follow-up: 2 weeks Referrals: Rick Bills MD [ [facility] ST[facility]FF PHYSICIAN] - Activity:: Activity as Tolerated Equipment/Supplies:: Walker Diet:: As Tolerated Discharge Orders Discharge Orders: Discharge Order (Routine); Ordered 04/09/19 Ordered By: Rick Bills DS: Summary Status at Discharge Functional status at discharge: uses cane/walker Overall status at discharge: patient is progressing back to baseline Mental Status: mental status grossly normal Speech and Movement: speech and movement normal Mood: congruent mood Affect: normal affect Exam Psych Mental Status: mental status grossly normal Speech and Movement: speech and movement normal Mood: congruent mood Affect: normal affect DS: Data Vitals/I&O Vitals and I&O: Vital Signs Temperature 36.4 C L 04/09/19 07:25 Temperature Source Tympanic 04/09/19 07:25 Pulse 92 H 04/09/19 07:25 Pulse Rhythm Regular 04/09/19 07:58 Respiratory Rate 17 04/09/19 07:25 Respiratory Effort 04/09/19 07:58 Respiratory Depth Normal 04/09/19 07:58 Respiratory Pattern Normal 04/09/19 07:58 Blood Pressure 115/84 04/09/19 07:25 Pulse Oximetry 95 04/09/19 07:25 Respiratory End-tidal CO2 36 04/08/19 10:30 Oxygen Delivery Method Room Air 04/09/19 07:25 Oxygen Flow Rate 0 04/09/19 07:25 Pain Level 1 04/09/19 07:53 Comment 04/08/19 06:00 Intake & Output 04/08/19 04/08/19 04/09/19 11:59 23:59 11:59 Intake Total 870 / 1380.667 510.667 / 2360.256 8773.333 / 2393.333 Output Total 650 / 2350 1700 / 2350 900 / 900 Balance 220 / -969.333 -1189.333 / -787.849 8756.333 / 1493.333 Weight 80.9 kg Intake: IV 870 / 1140.667 270.667 / 6263.616 5104.333 / 1413.333 Oral 240 / 240 980 / 980 Output: Urine 400 / 2100 1700 / 2100 900 / 900 Estimated Blood Loss 250 / 250 Other: Urine Color Pale Yellow Yellow Yellow Urine Appearance Clear Clear Clear Urine Odor Normal Normal Emesis Description None Voiding Methods Bedside Commode Bedside Commode PENDING SALE TO [facility] Medical History Rankin's esophagus determined by biopsy (Acute ~11/04/18) As per patient states she does not have it Colorectal polyp detected on colonoscopy (Acute) Concern about sexually transmitted disease in female without diagnosis (Resolved) Elevated cholesterol (Chronic) Essential hypertension (Chronic) Gastritis determined by endoscopy (Acute ~11/04/18) GERD (gastroesophageal reflux disease) (Acute 12/22/13) PT. STATES HORRIBLE GAG REFLEX Obesity (Chronic) Osteoarthritis of left knee (Chronic) Injected: 08/09/2018 Synvisc: 09/23/2018 Osteoarthritis of right knee (Chronic) Injected: 08/09/2018 Synvisc: 09/23/2018 Seasonal allergic rhinitis (Acute 12/22/13) pt. reports hemp causes this Tubular adenoma of colon (Acute ~11/04/18) Vaginal dryness (Chronic) Surgical History Appendectomy section X 3 H/O esophagogastroduodenoscopy (Chronic ~11/04/18) Hysterectomy, Laproscopic (~1991) STILL HAS RIGHT OVARY S/P colonoscopy (Acute ~11/04/18) Family History Mother Essential hypertension Hyperlipidemia Father , 84 Diabetes Essential hypertension Heart disease Hyperlipidemia Cancer of kidney Skin cancer Sister Diabetes Essential hypertension Depression Hyperlipidemia Asthma Sister , 49 Diabetes Essential hypertension Hyperlipidemia Lung cancer Liver cancer Sister No problems noted. Brother Diabetes Essential hypertension Hyperlipidemia Maternal Grandfather , 78 Primary tuberculosis Heart disease Paternal Grandfather , 85 Diabetes Essential hypertension Heart disease Hyperlipidemia Maternal Grandmother , 69 Essential hypertension Heart disease Hyperlipidemia Paternal Grandmother Essential hypertension Colon cancer Daughter , 8 AML (acute myeloblastic leukemia) Son No problems noted. Son No problems noted. Social History Smoking/Tobacco Use Status: Former Tobacco Use Quit Date: 03/26/02 Tobacco: How many years used: 20 Second Hand Exposure: Yes Alcohol Intake: never Drug use: Never Substance use type: does not use Caregiver/Support person: No Foster care: No Household members: spouse Housing: house Number of Children: 2 number of grandchildren: 11 Communication Needs: None Do you need help understanding health information?: Rarely Pets and animals: Yes Pets and animals: cat(s) and dog(s) Sexually active: No Do you think of yourself as: straight/heterosexual Current gender identity: female What is your relationship status?: How often do you talk on the phone with friends or family?: decline to answer How often do you get together with friends or relatives?: decline to answer How often do you attend anabaptism or holiness services?: decline to answer Do you belong to any clubs or organized social groups?: no Panel score (0-1 are the most socially isolated patients): 1 What type of physical activity do you participate in: decline to answer Duration: 15-30 minutes/day Frequency: 1-2 times per week Rachel/Orthodoxy: Pentecostalism Special rachel needs: No Helmet use: No Drive intox or ride w/intox food mobile driver: No Do you feel safe at home: Yes Additional Social history: UNABLE TO OBTAIN ANSWER, SPOUSE IN ROOM
--- NOTE | 2019-04-09 13:07 | PDOC.CMIN ---
- If Service Date Differs Date of service: 04/09/19 Time of Service: 13:07 Care Management Initial Assess REASON FOR HOSPITALIZATION:: Right Knee DJD PAST MEDICAL HISTORY/PAST SURGICAL HISTORY:: Medical History (Updated 04/01/19 @ 09:17 by Luis Fernando Maher). Rankin's esophagus determined by biopsy (Acute ~11/04/18). As per patient states she does not have it. Colorectal polyp detected on colonoscopy (Acute). Concern about sexually transmitted disease in female without diagnosis (Resolved). Elevated cholesterol (Chronic). Essential hypertension (Chronic). Gastritis determined by endoscopy (Acute ~11/04/18). GERD (gastroesophageal reflux disease) (Acute 12/22/13). PT. STATES HORRIBLE GAG REFLEX. Obesity (Chronic). Osteoarthritis of left knee (Chronic). Injected: 08/09/2018. Synvisc: 09/23/2018. Osteoarthritis of right knee (Chronic). Injected: 08/09/2018. Synvisc: 09/23/2018. Seasonal allergic rhinitis (Acute 12/22/13). pt. reports hemp causes this. Tubular adenoma of colon (Acute ~11/04/18). Vaginal dryness (Chronic). Surgical History . Appendectomy. section. X 3. H/O esophagogastroduodenoscopy (Chronic ~11/04/18). Hysterectomy, Laproscopic (~1991). STILL HAS RIGHT OVARY. S/P colonoscopy (Acute ~11/04/18) PREVIOUS FUNCTIONAL STATUS/SOCIAL/FAMILY SUPPORTS:: Katherine lives in [place] with her Manuel in a single story home. They have five adult children who live in various places, not local. Manuel is identified as her main support. 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 She is otherwise independent at baseline. CURRENT FUNCTIONAL STATUS:: Katherine was sitting up in her chair when MARIA DE JESUS met with her. She reported that she would be leaving soon, as she was already discharged. MARIA DE JESUS spoke with her about her DME needs. She stated that she has a standard walker (no wheels) but it is not functional at this time. MARIA DE JESUS coordinated a FWW through [facility] for her to use upon discharge. Katherine was agreeable to having a new FWW, as it was recommended by PT. Katherine stated that she was feeling good and was eager to be home. ADVANCE DIRECTIVES:: Manuel, her , is listed as agent. Has patient been provided with information about the portal?: Yes Did the patient sign up for the portal?: No (Another time) CODE STATUS:: Full Code INSURANCE COVERAGE / FINANCIAL ISSUES:: JOSÉ MIGUEL CURRENT HOME/COMMUNITY SERVICES/EQUIPMENT:: Katherine has a cane and a standard walker, but it is not functional at this time. CM will coordinate a FWW upon discharge through [employer]. PRIMARY CARE PHYSICIAN:: Melita Anne POTENTIAL DISCHARGE NEEDS:: Coordination of DME, follow up appointment PATIENT/FAMILY EDUCATION NEEDS:: Review discharge instructions regarding activity level and medication, discussion of self care including 'ask me three' ANTICIPATED BARRIERS TO DISCHARGE:: None identified at this time. TRANSPORTATION:: Her Manuel will drive her via private vehicle. PLAN:: Katherine will return home with no additional services when medically cleared. She will follow up with Ortho, as recommended. CM will coordinate obtaining a FWW through [facility] prior to discharge. Her , Manuel will drive her home via private vehicle when ready. CM will continue to follow.
--- NOTE | 2019-04-09 13:47 | CMDISCH_ITS ---
- If Service Date Differs Date of service: 04/09/19 Time of Service: 13:47 LACE Index Scoring Tool - Questions: Length of Stay (in days): 2 Acuity (Admit via E.D.?): No E.D. Visits: 0 - Answers: Total Score: 2 Risk of Readmission: Low Risk Care Management Discharge Reason for Hospitalization: Right Knee DJD Discharge Plan: Katherine will return home with no additional services at this time. She will follow up with Ortho, as recommended. CM coordinated a FWW through [facility]. Her , Manuel, will drive her home via private vehicle when ready. Patient/Family Education Needs: Review discharge instructions regarding activity levels and medications, discussion of self care needs including ask me three Services Needed at Discharge: DME Agency ([facility])
--- NOTE | 2019-04-10 14:25 | PT.INDS ---
Date of service: 04/10/19 Time of Service: 14:25 PT Notes Visit Reasons: Right Knee DJD Inpatient Physical Therapy Discharge Summary Dates: 04/10/2019 Dates of Service: 04/08/2019 only This is a clinical summary of care provided on the duration of dates listed above. No charge was made in the completion of this documentation. Referring Doctor: Rick Bills MD PT Orders: PT CONSULT: S/P ortho surgery Precautions: Fall. Standard. WBAT on R LE. Patient Profile/Admitting Diagnosis: Pt is a 58-year-old female with a history of knee osteoarthritis presenting status post right TKA. PMHX: Medical History (Updated 04/01/19 @ 09:17 by Luis Fernando Maher) Rankin's esophagus determined by biopsy (Acute ~11/04/18) As per patient states she does not have it Colorectal polyp detected on colonoscopy (Acute) Concern about sexually transmitted disease in female without diagnosis (Resolved) Elevated cholesterol (Chronic) Essential hypertension (Chronic) Gastritis determined by endoscopy (Acute ~11/04/18) GERD (gastroesophageal reflux disease) (Acute 12/22/13) PT. STATES HORRIBLE GAG REFLEX Obesity (Chronic) Osteoarthritis of left knee (Chronic) Injected: 08/09/2018 Synvisc: 09/23/2018 Osteoarthritis of right knee (Chronic) Injected: 08/09/2018 Synvisc: 09/23/2018 Seasonal allergic rhinitis (Acute 12/22/13) pt. reports hemp causes this Tubular adenoma of colon (Acute ~11/04/18) Vaginal dryness (Chronic) Surgical History Appendectomy section X 3 H/O esophagogastroduodenoscopy (Chronic ~11/04/18) Hysterectomy, Laproscopic (~1991) STILL HAS RIGHT OVARY S/P colonoscopy (Acute ~11/04/18) Social History/Home Situation: Pt lives at home with her . Notes that there is one step and a small threshold into the home. Once in her home there are no stairs other than to the basement, but no reason for her to need to use. Equipment Owned/DME: Cane Subjective: NT Objective: General Observation: NT Mental Status: NT Pain:NT ROM: Right Upper Extremity: Shoulder Flexion WFL. Shoulder abduction WFL. Elbow flexion WFL. Wrist flexion WFL. Opening and closing of hand WFL. Left Upper Extremity: Shoulder Flexion WFL. Shoulder abduction WFL. Elbow flexion WFL. Wrist flexion WFL. Opening and closing of hand WFL. Right Lower Extremity: Hip flexion WFL. Hip abduction WFL. Knee flexion 90 degrees. Knee extension -20 degrees. Pt was able to complete 10 SLR without difficulty. Ankle dorsiflexion WFL. Ankle plantarflexion WFL. Left Lower Extremity: Hip flexion WFL. Hip abduction WFL. Knee flexion WFL. Ankle dorsiflexion WFL. Ankle plantarflexion WFL. Strength: Right Upper Extremity: Shoulder flexors 5/5. Shoulder abductors 5/5. Elbow flexors 5/5. Elbow extensors 5/5. Battery Service Technician strong. Left Upper Extremity: Shoulder flexors 5/5. Shoulder abductors 5/5. Elbow flexors 5/5. Elbow extensors 5/5. Battery Service Technician strong. Right Lower Extremity: Hip flexors 4/5. Hip abductors 5/5. Knee flexors 4+/5. Knee extensors 3-/5. Ankle dorsiflexors 5/5. Ankle plantarflexors 5/5. Left Lower Extremity: Hip flexors 5/5. Hip abductors 5/5. Knee flexors 5/5. Knee extensors 5/5. Ankle dorsiflexors 5/5. Ankle plantarflexors 5/5. Sensation: Intact as to pain and pressure on bilateral lower extremities. Bed Mobility/Transfers: Rolling independent Supine to sit independent with HOB flat Sit to supine independent with [facility] flat Sit to stand supervision Stand to sit supervision Bed to chair supervision Chair to bed supervision Gait: Pt was able to ambulate WBAT 50 feet +100 feet using a two-wheeled walker with SBA. Step to pattern with decreased obdulia. Asymmetrical length and height of step. Patient also tolerated up-and-down six 4 inch steps and two 6 inch steps while holding onto bilateral balance using step to gait pattern requiring supervision. Balance: Static Sitting: Normal Dynamic Sitting: Normal Static Standing: Fair Dynamic Standing: Fair Assessment: Pt is a 58-year-old female with history of knee osteoarthritis presenting status post right TKA. At the time of initial evaluation, the patient presented with impairment level findings and functional limitation as listed below. Patient continue to present with clinical signs and symptoms consistent with current/admitting diagnoses that have resulted to mobility limitations, gait instability and generalized weakness as demonstrated by the following impairment level findings: 1. Decreased strength to R LE hip and knee muscle groups 2. Impaired sitting/standing balance 3. Impaired activity tolerance 4. Limitation of joint range of motion in right knee Impairments continue to contribute to the following functional limitations: 1. Increased dependence with transfers 2. Inability to safely ambulate without assistive device and physical assistance 3. Increase completion time for mobility ADL performance 4. Increased fall risk 5. Inability to negotiate steps alone safely Goals: Goals X1 week 1. Sit-Stand independent NOT MET 2. Stand-Sit independent NOT MET 3. Bed-Chair independent NOT MET 4. Chair-Bed independent NOT MET 5. Independent gait on level surface with use of least restrictive device for at least 300 feet without report of pain nor dyspnea NOT MET 6. Independent stair negotiation while holding onto bilateral rails for at least 5 steps without report of pain nor dyspnea NOT MET 7. Independent with home exercise program NOT MET 8. Good dynamic standing balance/tolerance NOT MET DISCHARGE RECOMMENDATIONS: Discharge to home with two-wheeled walker when medically cleared. TREATMENT CODE/TIME: NC. Thank you very much for this referral. Mima Machado PT, DPT, CLT [facility] [place], [place]
== END 2019-04-09 11:05 | disposition home or self-care (01) | DRG 470 ==
LOC: PDS 05:54 → MS 10:42
PROVIDERS: Admitting Provider Student in an Organized Health Care Education/Training Program; PCP Nurse Practitioner; Visit Provider Student in an Organized Health Care Education/Training Program
PROC: 0SRC0J9 Replacement of Right Knee Joint with Synthetic Substitute, Cemented, Open Approach (ICD-10-PCS; CPT 27447; principal; 2019-04-08 07:45)
DX: M17.11 Unilateral primary osteoarthritis, right knee (principal); M25.561 Pain in right knee; M21.161 Varus deformity, not elsewhere classified, right knee; Z96.651 Presence of right artificial knee joint; E78.00 Pure hypercholesterolemia, unspecified; I10 Essential (primary) hypertension; F32.9 Major depressive disorder, single episode, unspecified; K21.9 Gastro-esophageal reflux disease without esophagitis; G89.18 Other acute postprocedural pain
CPT/HCPCS: 27447; 76942; 97110; 97162; 97530; NC; J0690; J1100; J2250; J2405

== ENCOUNTER 2019-04-24 08:30 | Outpatient (CLI) | payer MEDICAID, SELFPAY ==
--- NOTE | 2019-04-24 | DI.RAD_ITS ---
EXAM: XR KNEE RT 1V CLINICAL HISTORY: S/P R TKA TECHNIQUE: COMPARISON: XR knee LT 3V AP,lat,christian from 01/14/2018 FINDINGS: Single lateral view was obtained. There is a total knee joint replacement position. The components appear well seated. IMPRESSION:
--- NOTE | 2019-04-24 08:20 | DI.RAD_ITS ---
EXAM: XR STANDING ALIGNMENT CLINICAL HISTORY: S/P R TKA TECHNIQUE: COMPARISON: XR STANDING ALIGNMENT from 03/13/2019 FINDINGS: Standing alignment views were obtained. There appear to be mild degenerative changes of both hips. There is a total knee joint prosthesis in position on the right. On the left there is degenerative c hange of the medial tibial femoral joint with mild medial femoral subluxation the tibia. IMPRESSION:
== END 2019-04-24 08:50 ==
PROVIDERS: PCP Nurse Practitioner; Visit Provider Student in an Organized Health Care Education/Training Program
DX: Z96.651 Presence of right artificial knee joint (principal); M16.0 Bilateral primary osteoarthritis of hip; M17.12 Unilateral primary osteoarthritis, left knee
CPT/HCPCS: 73560; 77073

== ENCOUNTER 2019-04-30 07:54 | Emergency (ER) | payer MEDICAID, SELFPAY ==
[2019-04-30] VITALS (15 sets, daily range): BP systolic 119–145; BP diastolic 55–84; PULSE 91–126; RESP 1–27; TEMP 36.5–36.8; O2SAT 92–99
[2019-04-30] MEDS: Normal Saline 1,000 ML 1000 ML IV (08:06)
--- NOTE | 2019-04-30 08:09 | W.ED.GENAD ---
Discharge Plan Disposition Patient Disposition: HOME Condition: Good Discharge Details Chief Complaint: RespSymp Clinical Impression: Bronchitis, Acute dyspnea, Acute dehydration Primary Care Provider: Melita Anne ED Provider: Ryan Haque Home Meds and New Rx's Prescriptions: New doxycycline hyclate 100 mg tablet 100 mg PO BID Qty: 20 RF: 0 No Action omeprazole 20 mg capsule,delayed release(DR/EC) 20 mg PO BID Qty: 60 RF: 5 cetirizine [Zyrtec] 10 mg tablet 10 mg PO DAILY Qty: 90 RF: 3 lisinopril 20 mg tablet 20 mg PO DAILY Qty: 90 RF: 3 EXCEDRIN MIGRAINE TABLET 1 EACH tablet 2 ea PO daily prn RF: 0 multivitamin with minerals [Hair,Skin and Nails] 1 EACH tablet 1 ea PO DAILY RF: 0 pravastatin 20 mg tablet 20 mg PO QPM RF: 0 aspirin 81 mg tablet,delayed release (DR/EC) 81 mg PO BID Qty: 60 RF: 0 acetaminophen 500 mg tablet 1,000 mg PO Q8H PRN (Reason: pain) Qty: 90 RF: 3 meloxicam 15 mg tablet 15 mg PO DAILY Qty: 30 RF: 6 Discharge Instructions Instructions: Dehydration (ED), Acute Bronchitis (ED) Additional Instructions: At this time your heart work-up is negative for signs of heart attack. There is no blood clot in your lungs, no DVT in your leg. Please drink 10 to 12 cups of fluid per day, take antibiotic as directed for bronchitis. If you notice any worsening of your symptoms, or any new symptoms such as vomiting, diarrhea, fever, chills, shortness of breath, chest pain, numbness, weakness, or fainting , please return immediately to the emergency department for reevaluation. Please follow up with your primary care provider as soon as possible for reassessment and reevaluation. As always, it was a pleasure participating in your medical care today. Referrals: Melita Anne NP [Primary Care Provider] - Discharge Data Discharge Date/Time-TO BE ENTERED AT DEPARTURE: 04/30/19 13:40 Medical Decision Making This is a 58-year-old female who presents today for evaluation of pleuritic chest pain, nonproductive cough, shortness of breath for the last 24 hours. She had a right lower knee surgery by Dr. Bills 3 weeks ago and has been doing well, she started physical therapy 5 days ago, after which she developed mild achiness in her right calf and right thigh. 24 hours ago she developed her chest symptoms. Mild achiness still present in the calf and right thigh. Lungs are clear to auscultation. Heart rate is notably elevated at 126, oxygen saturation stable. Differential is highest for pulmonary embolism, patient does have a Wells score of 9 and is PERC positive. In addition to this differential also does include potential mild atelectasis versus pneumonia, bronchitis or influenza. ACS certainly less likely. Symptoms do not appear to be exertional related and the patient has no history of cardiac disease and she has not smoked for 16 years. EKG shows no evidence of significant right heart strain. We will continue in her work-up, closely monitor. 3 PM Patient's laboratory work-up is returned, no white count, electrolytes normal, renal function normal, troponin x2 both within normal limits, proBNP normal. CTA demonstrates no evidence of pulmonary embolism, there is some mild dependent atelectasis. Ultrasound of the lower extremity shows no signs of DVT. After rehydration the patient is feeling much better, tachycardia notably improved. With negative serial troponins, negative CTA, and a notable normalization of her vital signs after rehydration seems that her symptoms are inconsistent with PE. Atelectasis bronchitis are certainly now more likely on the differential, and symptoms are inconsistent with ACS. With the nature of her symptoms we will treat bronchitis with doxycycline, 100 mg twice daily, recommend continued hydration as an outpatient and close follow-up with PCP. Influenza testing negative at this time. I have extensively reviewed the treatment plan and discharge instructions with the patient and their family. I have addressed all patient concerns at this time. The patient and family was made aware of what symptoms to monitor for that would warrant a return to the emergency department. Discussed the plan with the patient and family, they demonstrate verbal understanding and agreement with our assessment and plan at this time. EKG 8: 07 Rate 114, sinus tachycardia, inverted T wave in V1. No significant ST elevations or depressions. No Q waves. [id number] FINDINGS: Pulmonary Arteries: No evidence of filling defect to suggest pulmonary emboli. Tracheobronchial tree: Patent where visualized. Mediastinum and Sindhu: No dominant adenopathy or fluid collection. Pulmonary parenchyma: No consolidation or dominant measurable mass. No architectural distortion. Dependent atelectasis. Pleura: No effusion or pneumothorax. Heart: Mild cardiomegaly. No pericardial effusion. No right heart strain. Mild coronary artery calcification. Aorta: Thoracic aorta non-dilated. Atherosclerosis. No aneurysm or dissection. Upper abdomen: Small hiatal hernia. Bones: Degenerative changes in the spine. IMPRESSION: No evidence of pulmonary embolism, thoracic aortic dissection or aneurysm. The findings were discussed with the emergency department on the date of the examination. FINDINGS: The right common femoral, femoral and popliteal veins demonstrate normal compressibility, augmentation, and color Doppler. The posterior tibial veins are patent.The saphenofemoral junction is unremarkable. IMPRESSION: No DVT. HPI General Date/Time Provider Initiated Documentation: 04/30/19 07:59. HPI Narrative: This is a 58-year-old female with a past medical history of Rankin's esophagus, and a recent knee surgery on her right knee 3 weeks ago who presents today for cough, shortness of breath, pleuritic chest pain. Symptoms have been present for the last 24 hours. She denies any productivity for her cough. She denies any hemoptysis. She does have a family history of blood clots from her mother side. She does admit to very mild fever. She does admit to calf and right mid thigh achiness, which is been present for the last 3 to 4 days since she started physical therapy for her right knee. She denies any previous cardiac disease, she denies any smoking for the past 16 years. She denies any significant vomiting, diarrhea, numbness tingling or weakness. She has no other complaints at this time. No other modifying factors. She denies any recent long trips, or estrogen use. Related Data Home Medications Medication Instructions Recorded Confirmed Excedrin Migraine Tablet 2 ea PO daily prn 03/24/13 04/30/19 multivitamin with minerals 1 ea PO DAILY 08/01/17 04/30/19 [Hair,Skin and Nails] omeprazole 20 mg capsule,delayed 20 mg PO BID #60 cap 11/29/18 04/30/19 release lisinopril 20 mg tablet 20 mg PO DAILY #90 tab 03/11/19 04/30/19 cetirizine 10 mg tablet 10 mg PO DAILY #90 tab 04/03/19 04/30/19 pravastatin 20 mg PO QPM 04/08/19 04/30/19 acetaminophen 1,000 mg PO Q8H PRN #90 tab 04/09/19 04/30/19 aspirin 81 mg PO BID #60 tab 04/09/19 04/30/19 meloxicam 15 mg PO DAILY #30 tab 04/09/19 04/30/19 doxycycline hyclate 100 mg PO BID #20 tab 04/30/19 Previous Rx's Medication Instructions Recorded omeprazole 20 mg capsule,delayed 20 mg PO BID #60 cap 11/29/18 release lisinopril 20 mg tablet 20 mg PO DAILY #90 tab 03/11/19 cetirizine 10 mg tablet 10 mg PO DAILY #90 tab 04/03/19 acetaminophen 1,000 mg PO Q8H PRN #90 tab 04/09/19 aspirin 81 mg PO BID #60 tab 04/09/19 meloxicam 15 mg PO DAILY #30 tab 04/09/19 doxycycline hyclate 100 mg PO BID #20 tab 04/30/19 Allergies Allergy/AdvReac Type Severity Reaction Status Date / Time adhesive Allergy Intermediate SKIN Verified 04/30/19 08:30 RASH/blisters codeine AdvReac Intermediate NAUSEA Verified 04/30/19 08:30 NSAIDS (Non-Steroidal AdvReac Unknown GI Verified 04/30/19 08:30 Anti-Inflamma oxycodone AdvReac Unknown LOOPY Verified 04/30/19 08:30 hemp Allergy sneezing, Uncoded 04/30/19 08:30 coughing Perfume AdvReac Mild Sinus Uncoded 04/30/19 08:30 congestion General Stated Complaint: RespSymp CALOS: 3 Review of Systems All systems reviewed & are unremarkable except as noted in HPI and below PFSH Social History Smoking/Tobacco Use Status: Former Tobacco Use Quit Date: 03/26/02 Tobacco: How many years used: 20 Second Hand Exposure: Yes Alcohol Intake: never Drug use: Never Substance use type: does not use Caregiver/Support person: No Foster care: No Household members: spouse Housing: house Number of Children: 2 number of grandchildren: 11 Communication Needs: None Do you need help understanding health information?: Rarely Pets and animals: Yes Pets and animals: cat(s) and dog(s) Sexually active: No Do you think of yourself as: straight/heterosexual Current gender identity: female What is your relationship status?: How often do you talk on the phone with friends or family?: decline to answer How often do you get together with friends or relatives?: decline to answer How often do you attend shinto or buddhism services?: decline to answer Do you belong to any clubs or organized social groups?: no Panel score (0-1 are the most socially isolated patients): 1 What type of physical activity do you participate in: decline to answer Duration: 15-30 minutes/day Frequency: 1-2 times per week Rachel/Catholic: Yarsanism Special rachel needs: No Helmet use: No Drive intox or ride w/intox chain saw driver: No Do you feel safe at home: Yes Do you feel safe in your relationship?: Yes Exam Narrative Exam Narrative: 1.Const: Well-nourished, Well-developed, appearing stated age 2.Eyes: PERRL, no conjunctival injection, and symmetrical lids. 3.ENT: Atraumatic external nose and ears. Moist MM. Neck: Symmetric, trachea midline, No thyromegaly. 4.CVS: +S1/S2, No murmurs or gallops. Peripheral pulses 2+ and equal in all extremities. Brisk capillary refill in all extremities. 5.RESP: Unlabored respiratory effort. Clear to auscultation bilaterally. No wheezes rales or rhonchi 6.GI: Soft, Nontender/Nondistended, No hepatosplenomegaly. No guarding or rebound. 7.MSK: Normocephalic/Atraumatic, Extremities w/o deformity. No cyanosis or clubbing, minimal restriction of the right knee secondary to postoperative status. Incision is clean dry and intact. No significant warmth or atypical redness. Minimal subjective achiness in the right calf and right thigh. No significant unilateral edema in the calf compared to the left. Pulses intact, sensation intact. 8.Skin: Warm, Dry. No rashes or lesions. 9.Neuro: pharmaceutical assistant II-XII grossly intact. Sensation grossly intact, no focal neurologic deficits. 10.Psych: (AAO) x3. Appropriate mood and affect Course Vital Signs Vital signs: Vital Signs Temperature 36.5 C 04/30/19 07:57 Pulse 126 H 04/30/19 07:57 Blood Pressure 123/84 04/30/19 07:57 Pulse Oximetry 95 04/30/19 07:57 Temperature 36.5 C 04/30/19 07:57 Temperature Source Temporal Artery Scan 04/30/19 07:57 Pulse 126 H 04/30/19 07:57 Respiratory Effort Non-Labored 04/30/19 07:59 Blood Pressure 123/84 04/30/19 07:57 Blood Pressure Position Sitting 04/30/19 07:57 Pulse Oximetry 95 04/30/19 07:57 Oxygen Delivery Method Room Air 04/30/19 07:57 Oxygen Flow Rate 0 04/30/19 07:57
[2019-04-30 08:34] LABS: Abs Immature Grans 0.02 k/cumm (0.0-0.09); Absolute Basophil Count 0.04 k/cumm (0.0-0.2); Absolute Lymphocyte Count 1.02 k/cumm (1.2-3.4); Absolute Monocyte Count 1.15 k/cumm (0.11-0.7); Absolute Neutrophil Count 5.68 k/cumm (1.2-6.7); Basophils % 0.5; Eosinophils % 2.5; Immature Grans % 0.2 %; Lymphocytes % 12.6; Mean Corp. HGB Concentration 32.5 g/dL (32.0-36.0); Mean Corpuscular Hemoglobin 28.7 pg (27.0-33.0); Mean Corpuscular Volume 88.3 fL (80-95); Mean Platelet Volume 9.6 fL (8.0-11.0); Monocytes % 14.2; Platelet Count 406 x1000/uL (130-400); RBC 4.53 m/cumm (4.00-5.20); RBC Distribution Width 13.6 % (11.7-14.6); White Blood Cell Count 8.11 k/cumm (4.4-10.8)
[2019-04-30 08:46] LABS: PTT Activated 21.4 sec (21.0-31.4); Prothrombin Time 9.8 sec (9.3-11.0)
[2019-04-30 08:47] LABS: ALT 35 U/L (14-59); AST 21 U/L (15-37); Albumin 3.8 g/dL (3.4-5.0); Alkaline Phosphatase 102 U/L (46-116); Anion Gap 9.7 mmol/L (3-11); BUN 10 mg/dL (7-18); Bilirubin, Total 0.2 mg/dL (0.2-1.0); CO2 25.3 mmol/L (21.0-32.0); CREATININE 0.84 mg/dL (0.55-1.02); Calcium 8.7 mg/dL (8.5-10.1); Chloride 103 mmol/L (98-107); Glucose 134 mg/dL (74-106); NT-proBNP 38 pg/mL (<300); Potassium 3.5 mmol/L (3.5-5.1); Sodium 138 mmol/L (136-145); Total Protein 7.4 g/dL (6.4-8.2)
[2019-04-30 08:49] LABS: Troponin I < 0.05 ng/Ml (<0.06)
--- NOTE | 2019-04-30 09:18 | DI.CT_ITS ---
EXAM: CT CHEST PE CTA CLINICAL HISTORY: Pleuritic CP, recent surgery, tachycardia, r/o PE. TECHNIQUE: Imaging Protocol: Axial CT angiography was performed with multi-slice acquisition and mu lti-planar and/or 3D reconstructions. CONTRAST MATERIAL: Intravenous: Omnipaque 350 Contrast volume:100ml COMPARISON: No exams were available for comparison FINDINGS: Pulmonary Arteries: No evidence of filling defect to suggest pulmonary emboli. Tracheobronchial tree: Patent where visualized. Mediastinum and Sindhu: No dominant adenopathy or fluid collection. Pulmonary parenchyma: No consolidation or dominant measurable mass. No architectural distortion. Depe ndent atelectasis. Pleura: No effusion or pneumothorax. Heart: Mild cardiomegaly. No pericardial effusion. No right heart strain. Mild coronary artery izzy cification. Aorta: Thoracic aorta non-dilated. Atherosclerosis. No aneurysm or dissection. Upper abdomen: Small hiatal hernia. Bones: Degenerative changes in the spine. IMPRESSION: No evidence of pulmonary embolism, thoracic aortic dissection or aneurysm. The findings were discussed with the emergency department on the date of the examination. DATA REPOSITORY: All CT scans at this facility are submitted to the National Radiology Data Registry (NRDR) Dose Index Registry (DIR) with the [employer] (ACR). RADIATION OPTIMIZATION: All CT scans at this facility use at least one of these dose optimization te chniques: automated exposure control; mA and/or kV adjustment per patient size (includes targeted exa ms where dose is matched to clinical indication); or iterative reconstruction.
[2019-04-30] MEDS: Omnipaque 350 MG/ML 100 ML BTL IJ (09:28)
[2019-04-30 09:45] LABS: BE (Venous) -0.8 mmol/L (-3-3); HCO3 (Venous) 25 mmol/L (22-28); O2 Sat (Venous) 81 % (70-80); TCO2 (Venous) 23 mmol/L (22-29); pCO2 (Venous) 43 mm/Hg (34-47); pH (Venous) 7.37 (7.35-7.45); pO2 (Venous) 47 mm/Hg (28-44)
[2019-04-30] MEDS: Normal Saline 500 ML IV (10:27)
[2019-04-30] MEDS: Albuterol/Ipratropium 3 ML UPD VIAL UPD (10:30)
--- NOTE | 2019-04-30 11:41 | DI.US_ITS ---
EXAM: US LOWER EXTREMITY VENOUS RT CLINICAL HISTORY: CALF PAIN, SWELLING, r/O DVT. TECHNIQUE: Right lower extremity venous ultrasound performed using grayscale, color-flow, and spectr al Doppler analysis. COMPARISON: No previous for comparison FINDINGS: The right common femoral, femoral and popliteal veins demonstrate normal compressibility, augmentatio n, and color Doppler. The posterior tibial veins are patent.The saphenofemoral junction is unremarkab le. IMPRESSION: No DVT.
[2019-04-30 12:33] LABS: Troponin I < 0.05 ng/Ml (<0.06)
== END 2019-04-30 13:40 | disposition home or self-care (01) ==
PROVIDERS: Emergency Provider Student in an Organized Health Care Education/Training Program; PCP Nurse Practitioner
DX: R06.02 Shortness of breath (principal); R05 Cough; R06.00 Dyspnea, unspecified; J20.9 Acute bronchitis, unspecified; E86.0 Dehydration; M79.605 Pain in left leg; J98.11 Atelectasis
CPT/HCPCS: 36415; 71275; 80053; 82805; 87449; 93005; 94640; 96360; 96361; 99285; 83880; 84484; 85025; 85610; 85730; 93010; 93971; J3490; J7620

== ENCOUNTER 2019-05-27 06:07 | Inpatient (IN) | payer MEDICAID, SELFPAY ==
[2019-05-27] VITALS (16 sets, daily range): BP systolic 89–136; BP diastolic 51–88; PULSE 59–94; RESP 12–20; TEMP 36.2–37.4; O2SAT 95–100
[2019-05-27] MEDS: Lactated Ringers 1,000 ML 80 ML IV ×2 (06:40→19:37)
[2019-05-27] MEDS: Acetaminophen 500 MG TAB 1000 MG PO ×3 (06:50→19:39)
[2019-05-27] MEDS: Gabapentin 300 MG CAP PO ×2 (06:50→21:12)
[2019-05-27] MEDS: Celecoxib 200 MG CAP 400 MG PO (06:50)
[2019-05-27] MEDS: Normal Saline 50 ML (08:40)
[2019-05-27] MEDS: Ketorolac 30 MG/ML VIAL (08:40)
[2019-05-27] MEDS: Bupivacaine 0.25% Pres-Free 30 ML VIAL (08:40)
--- NOTE | 2019-05-27 13:53 | IN_ITS ---
Date of service: 05/27/19 Time of Service: 13:05 PT Notes Visit Reasons: LEFT KNEE DJD Physical Therapy Inpatient Initial Evaluation Date: 05/27/2019 Referring Doctor: Rick Haque MD PT Orders: PT CONSULT: S/P ortho surgery Precautions: Fall. Standard. Activity as tolerated. Patient Profile/Admitting Diagnosis: Pt is a 58-year-old female with history of knee osteoarthritis presenting status post left TKA on POD 0. PMHX: Medical History (Updated 04/01/19 @ 09:17 by Luis Fernando Maher) Rankin's esophagus determined by biopsy (Acute ~11/04/18) As per patient states she does not have it Colorectal polyp detected on colonoscopy (Acute) Concern about sexually transmitted disease in female without diagnosis (Resolved) Elevated cholesterol (Chronic) Essential hypertension (Chronic) Gastritis determined by endoscopy (Acute ~11/04/18) GERD (gastroesophageal reflux disease) (Acute 12/22/13) PT. STATES HORRIBLE GAG REFLEX Obesity (Chronic) Osteoarthritis of left knee (Chronic) Injected: 08/09/2018 Synvisc: 09/23/2018 Osteoarthritis of right knee (Chronic) Injected: 08/09/2018 Synvisc: 09/23/2018 Seasonal allergic rhinitis (Acute 12/22/13) pt. reports hemp causes this Tubular adenoma of colon (Acute ~11/04/18) Vaginal dryness (Chronic) Surgical History Appendectomy section X 3 H/O esophagogastroduodenoscopy (Chronic ~11/04/18) Hysterectomy, Laproscopic (~1991) STILL HAS RIGHT OVARY S/P colonoscopy (Acute ~11/04/18) Social History/Home Situation: Pt lives at home with her . Notes that there is one step and a small threshold into the home. Once in her home there are no stairs other than to the basement, but no reason for her to need to use. Equipment Owned/DME: cane Subjective: Pt reports that she is still a little numbe Objective: General Observation: Smith catheter in place, IV in RUE. Mental Status: alert and oriented x4 Pain: 0/10 at rest ROM: Right Upper Extremity: Shoulder Flexion WFL. Shoulder abduction WFL. Elbow flexion WFL. Wrist flexion WFL. Opening and closing of hand WFL. Left Upper Extremity: Shoulder Flexion WFL. Shoulder abduction WFL. Elbow flexion WFL. Wrist flexion WFL. Opening and closing of hand WFL. Right Lower Extremity: Hip flexion WFL. Hip abduction WFL. Knee flexion 115 degrees. Knee extension -15 degrees. Ankle dorsiflexion WFL. Ankle plantarflexion WFL. Left Lower Extremity: Hip flexion WFL. Hip abduction WFL. Knee flexion WFL. Ankle dorsiflexion WFL. Ankle plantarflexion WFL. Strength: Right Upper Extremity: Shoulder flexors 4+/5. Shoulder abductors 4+/5. Elbow flexors 4+/5. Elbow extensors 5/5. Asbestos Removal Supervisor strong. Left Upper Extremity: Shoulder flexors 4+/5. Shoulder abductors 4+/5. Elbow flexors 4+/5. Elbow extensors 5/5. Asbestos Removal Supervisor strong. Right Lower Extremity: Hip flexors 4+/5. Hip abductors 5/5. Knee flexors 4+/5. Knee extensors 4+/5. Ankle dorsiflexors 5/5. Ankle plantarflexors 5/5. Left Lower Extremity: Hip flexors 4/5. Hip abductors 5/5. Knee flexors 3-/5. Knee extensors 3-/5. Ankle dorsiflexors 4/5. Ankle plantarflexors 5/5. Bed Mobility/Transfers: Rolling independent Supine to sit independent with HOB flat Sit to supine independent with HOB flat Sit to stand CGA Stand to sit CGA Bed to chair CGA Chair to bed CGA Gait: Pt was able to ambulate WBAT 30 feet x2 using a front-wheeled walker. Step to pattern with decreased obdulia. Asymmetrical length and height of step. CGA by PT and wheelchair follow by student PT. Balance: Static Sitting: Normal Dynamic Sitting: Normal Static Standing: Fair Dynamic Standing: Fair Special Tests: Mobility Limitations Standardized Measure [facility] [place] AM-PAC 6 clicks Basic Mobility Inpatient Short Form: Raw Score: 22 CMS Score: 21% deficit Informed Consent/Education: Patient instructed in purpose of PT consult and plan of care. HEP including glute sets, quadricep sets, ankle pumps. Assessment: Pt is a 58-year-old female with history of knee osteoarthritis presenting status post left TKA on POD 0. Patient presented to physical therapy with impairment level findings and functional limitations as listed below. She demonstrated independence with bed mobility. Pt would benefit from skilled physical therapy for safe return to home. Patient presents with clinical signs and symptoms consistent with current/admitting diagnoses that have resulted to mobility limitations, gait instability and generalized weakness as demonstrated by the following impairment level findings: 1. Decreased strength to L LE hip and knee muscle groups 2. Impaired sitting/standing balance 3. Impaired activity tolerance 4. Limitation of joint range of motion in left knee Impairments are contributing to the following functional limitations: 1. Increased dependence with transfers 2. Inability to safely ambulate without assistive device and physical assistance 3. Increase completion time for mobility ADL performance 4. Increased fall risk 5. Inability to negotiate steps alone safely Patient is [place] a 38590 moderate complexity based on the following: History: Pt is a 58-year-old female with history of knee osteoarthritis presenting status post left TKA. Pt presents with impairment level findings and functional limitations as listed above. AM-PAC raw score of 22 with 21% defict. Examination: Demonstrable impairment in strength, balance, and range of motion with underlying impairments and functional limitations as documented above Presentation: Evolving Decision Makin moderate complexity Goals: Goals X1 week 1. Sit-Stand independent 2. Stand-Sit independent 3. Bed-Chair independent 4. Chair-Bed independent 5. Independent gait on level surface with use of least restrictive device for at least 300 feet without report of pain nor dyspnea 6. Independent stair negotiation while holding onto bilateral rails for at least 5 steps without report of pain nor dyspnea 7. Independent with home exercise program 8. Good dynamic standing balance/tolerance Plan of Care/Treatment Plan: 1-2x/day, 7 days/week x 1 week. Plan of care has been reviewed with the COMMUNITY HEALTH OUTREACH WORKER providing the service under Physical Therapy direction. Initiate Physical Therapy intervention for strengthening, bed mobility, transfers, gait, stairs, balance training, use of assistive device. DISCHARGE RECOMMENDATIONS: Discharge to home with front-wheeled walker when medically cleared. TREATMENT CODE/TIME: 27440 x 25 minutes beginning at 13:05 P.M. Thank you very much for this referral. Migdalia Tejada, SPT Doctor of Physical Therapy Student [facility] Supervision provided by Mima Machado PT, DPT, CLT [facility] [place], [place]
[2019-05-27] MEDS: ceFAZolin 1 GM/50 ML BAG IVPB ×2 (15:05→21:13)
--- NOTE | 2019-05-27 15:20 | W.PM.OP ---
Date of service: 05/27/19 Time of Service: 15:22 Operative Note Operative Note DATE OF PROCEDURE: 05/27/19 PRE-OP DIAGNOSIS: Left Knee Osteoarthritis POST-OP DIAGNOSIS: same PROCEDURE: Left Total Knee Replacement SURGEON: Rick Bills EVENT SERVICES MANAGER: Eulalia Burris ANESTHESIA: regional and spinal ESTIMATED BLOOD LOSS: 300 PATHOLOGY: none sent TOURNIQUET TIME: 32 COMPLICATIONS: None Patient was transported to: PACU Patient's condition: stable Implants: 1. Depuy Attune Posterior Stabilized Femoral Component, Size 4 2. Depuy Attune Fixed Platform Tibial Component, Size 3 3. Depuy Attune 4 x 10 mm fixed, Stabilized Poly 4. Depuy Attune Patellar Component, Size 32 Indications: I have seen Katherine in clinic for symptoms of left knee arthritis, confirmed with radiographic findings. She has exhausted nonoperative methods and was having significant limitations in daily function and desired better function and less pain. I discussed the technical details of a knee replacement. I explained the risks of the procedure to include, but not limited to, bleeding, infection, pain, stiffness, fracture, damage to nerves and vessels, damage to muscles and tendons, loosening, need for repeat procedure, blood clot and cardiopulmonary demise. Despite these risks, Katherine elected to proceed. Findings: There was significant signs of arthritis throughout the knee. These are mostly of the medial compartment but also involve minor changes to the lateral and patellofemoral compartments. Procedure Description: Katherine was greeted in the preoperative holding area where the correct side was identified and marked. The consent was reviewed with the patient and signed. The history and physical was updated. All questions were answered. Preoperative mediacations were administered: Acetaminophen 1000mg, Celebrex 400mg, and Gabapentin 300mg. An adductor canal block was then administered by the anesthesia team in the PACU. Katherine was taken back to the operating room. A spinal anesthestic was then administered. The patient was placed into the supine position on the operating room table. A nonsterile tourniquet was placed high onto the leg but only used for cementing. Posts were placed for positioning during the procedure. All bony prominences were well padded. Prophylactic antibiotics in the form of cefazolin were administered. 1g of Tranxemic Acid was given intravenously within 30 minutes of incision. The left leg was then prepped with Chloraprep and draped in a standard fashion with impervious stockinette and extremity drape. A second prep with Chloraprep was performed prior to placing Ioband. A timeout to confirm correct identity, side and site, procedure, allergies, anesthesia, and medical concerns was performed. With the knee in some flexion, a midline incision was made overlying the knee. Full thickness skin flaps were raised once the extensor mechanism was encountered. These were raised medially and laterally. Any bleeding was controlled with electrocautery. Once the extensor mechanism was fully exposed, a medial parapatellar arthrotomy was performed in a flexed position. All bleeding from the arthrotomy and the geniculate arteries was coagulated. A medial subperiosteal peel was performed with electrocautery to the midcoronal plane. The fat pad was removed while keeping the patellar tendon protected. The anterior distal femur synovium was removed for later visualization. The ACL and PCL were resected and the anterior horn of the lateral meniscus was transected. The knee was then flexed with the patella everted. Large osteophytes from the tibia were removed. Large osteophytes from the femur were removed. Using a step drill, and based on preoperative templating, the femoral canal was entered. This was done with a step drill without any difficulty. The intramedullary distal femoral cut guide was inserted, set to a 5 degree valgus cut and 9mm cut thickness. The distal femoral cut guide was then held in position and pinned. With the soft tissues protected, the distal cut was performed. This was passed over a few times to ensure a planar cut. I then turned attention to the tibia. The extramedullary guide was placed onto the leg. The distal aspect was slid medial to adjust for position of center of ankle and stay in line with shaft of the tibia. Approximately 3-5 degrees of posterior slope was kept in the proximal cutting guide. The center of the guide was aligned with the PCL. The stylus was used to assess cut thickness. The medial side, most involved side, was set for a 4mm cut. This was then held in position and pinned into place with 2 additional pins and a cross pin for stability. The medial and lateral collateral ligaments were protected and the cut was performed. With this completed, it was assessed and noted to be of appropriate dimensions. The guide was removed. A spacer block was inserted and the knee was brought into extension. The 8mm spacer block provided full extension, without hyperextension and with stability of both the medial and lateral collateral ligaments was assessed. The pins from the femur and the tibia were then removed. The distal femur was then sized. The anterior stylus was placed onto the lateral ridge of the anterior femur. This indicated a size 4 femur. The external rotation of the guide was adjusted to 3 degrees to match the epicondylar axis, perpendicular to Bea?s line. The 4-in-1 cutting guide was the placed. The posterior medial femur cut was evaluated and appeared of good thickness. The spacer block was inserted underneath the cutting guide and stability was confirmed in 90 degrees of flexion. An raghavendra wing was used to confirm appropriate position of the anterior cut to avoid notching. This cutting guide was ensured to be flush on the cut surface and then pinned into place with headed pins. While protecting the soft tissues, quad tendon, and collateral ligaments, the anterior and posterior cuts were performed with a saw. The central two pins were removed and the posterior and anterior chamfers were cut next. The notch-cutting guide was placed. This was pinned to lateralize the femoral component as much as possible while keeping it flush on the cut surface. This was then pinned into position. A reciprocating saw was used to make the notch cut. A rasp smoothed the cut surfaces. A trial posterior stabilized femoral component was then inserted, impacted down to the cut surfaces, and the lug holes were drilled. A provisional trial tibial component was placed and the knee was brought through range of motion. The polyethylene was trialed until there was good flexion and extension with excellent stability to the medial and lateral collaterals. The patella was tracking without thumbs. The tibial cut surface was fully exposed. The medial and lateral menisci were removed. The tibia was then sized as a 3. The tibia had been previously marked during trialing to correspond to the center of the tibial component to help with rotation. The trial was aligned to this eulalia, approximately rotated to the medial 1/3rd of the tibial tubercle. The trial was pinned into place. The tibia was prepared with a reamer and a keel punch. The knee was then brought into extension and the patella was measured as 22mm. Using the patellar clamp and cut guide, this was resected to a flat surface with at least 13mm of thickness remaining. The size 32 patella fit the best. This was oriented and then clamped into position. The lugs were drilled. The trial components were removed. The final components, except for the polyethylene were opened on the back table. The periosteal and capsular tissues, especially posteriorly, around the knee were then systematically injected with a periarticular cocktail consisting of 50cc 0.25% Marcaine, 30mg Ketorolac, 20cc of Exparal and 50cc of injectable saline. The tourniquet was then inflated to 275mmHg. The knee was thoroughly irrigated with a pulse lavage and dried. On the back table, with the implants opened, the cement was mixed. 2 batches of antibiotic laden cement were prepared with vacuum assistance. After the cement was ready it was placed on to the back side of the tibial component. A small amount was placed onto the posterior flange of the femur. Cement was manual pressurized and impregnated into the cut surface of the tibia. The tibial component was then inserted into the cut surface and impacted into position. Excess cement was removed and the component was reimpacted. Again, excess cement was removed and our attention was then turned to the femur. The femoral cut surface was once again dried and cement was manually impacted into the cut surface. The femoral component was lined with the lug holes and impacted. Excess cement was removed. It was ensured to be down against the cut surface. The trial polyethylene was then inserted and the leg was brought out into full extension for the duration of the cement curing process, approximately 15min. Cement was lastly manually impacted into the cut surface of the patella and the patellar button was clamped into position and held. During this process attention was turned to the gutters of the knee and for all interfaces for any excess cement. While the cement was hardening, the knee was irrigated with Irrisept chlorhexadine solution. It was allowed to sit in the knee for 3 minutes. After the cement had finally cured, approximately 15min, the clamp was removed from the patella and the knee was taken through range of motion. A size 10 mm polyethylene component provided the best range of motion and stability with less than 2mm gapping with medial and lateral stress and full extension without significant hyperextension. The patella was tracking with a no-thumbs technique. The trial poly was removed and once again the knee was checked for any loose, excess, or errant cement. The poly component was then inserted and impacted into position after cleaning and drying the tibial tray. The capsule was then reapproximated with a No. 1 Vicryl at multiple locations. The capsule was finally closed with a No. 2 Stratafix, barbed suture. The tourniquet was then released and the arthrotomy appeared watertight without significant bleeding. The second dosing of 1g TXA was started. Deep tissues were then reapproximated with 0 Vicryl and 2-0 Vicryl. The skin was closed with a running 3-0 Monocryl in a subcuticular fashion. This was reinforced with skin glue. A Mepilex silver dressing was applied along with a [id number] JEANNETTE wrap. A CryoCuff was applied. Katherine was transferred to the hospital bed without difficulty an suffering no apparent complication. Katherine has a good prognosis. Physical therapy will start today and without restrictions, weight-bearing as tolerated. Aspirin 81mg BID will be used for DVT prophylaxis.
--- NOTE | 2019-05-27 16:13 | NUR.NOTE ---
Nursing Note: 05/27/19 1116 Pt arrived to ms room 205 from PACU. Pt alert and oriented x 3. Hr reg, lsc, positive bs x 4. Positive pp, dressing cdi lle. Cryo cuff on, scds applied. iv patent. Smith draining clear yellow urine
[2019-05-27] MEDS: Omeprazole 20 MG CAPCR PO (19:39)
[2019-05-27] MEDS: Pravastatin 20 MG TAB PO (19:39)
[2019-05-27] MEDS: Aspirin E.C. 81 MG TABEC PO (19:39)
[2019-05-28] MEDS: HYDROmorphone 2 MG TAB PO ×6 (01:53→16:46)
[2019-05-28 03:27] VITALS: BP 130/85; PULSE 91; RESP 18; TEMP 36.7; O2SAT 92
[2019-05-28] MEDS: ceFAZolin 1 GM/50 ML BAG IVPB (05:37)
[2019-05-28 07:36] VITALS: BP 118/79; PULSE 91; RESP 18; TEMP 37; O2SAT 96
[2019-05-28] MEDS: Cetirizine 10 MG TAB PO (08:09)
[2019-05-28] MEDS: Lisinopril 20 MG TAB PO (08:10)
[2019-05-28] MEDS: Acetaminophen 500 MG TAB 1000 MG PO ×3 (08:10→19:43)
[2019-05-28] MEDS: Omeprazole 20 MG CAPCR PO ×2 (08:10→19:43)
[2019-05-28] MEDS: Aspirin E.C. 81 MG TABEC PO ×2 (08:10→19:43)
--- NOTE | 2019-05-28 10:48 | PDOC.CMIN ---
- If Service Date Differs Date of service: 05/28/19 Time of Service: 10:54 Care Management Initial Assess REASON FOR HOSPITALIZATION:: Left Knee DJD PAST MEDICAL HISTORY/PAST SURGICAL HISTORY:: Medical History (Updated 04/01/19 @ 09:17 by Luis Fernando Maher). Rankin's esophagus determined by biopsy (Acute ~11/04/18). As per patient states she does not have it. Colorectal polyp detected on colonoscopy (Acute). Concern about sexually transmitted disease in female without diagnosis (Resolved). Elevated cholesterol (Chronic). Essential hypertension (Chronic). Gastritis determined by endoscopy (Acute ~11/04/18). GERD (gastroesophageal reflux disease) (Acute 12/22/13). PT. STATES HORRIBLE GAG REFLEX. Obesity (Chronic). Osteoarthritis of left knee (Chronic). Injected: 08/09/2018. Synvisc: 09/23/2018. Osteoarthritis of right knee (Chronic). Injected: 08/09/2018. Synvisc: 09/23/2018. Seasonal allergic rhinitis (Acute 12/22/13). pt. reports hemp causes this. Tubular adenoma of colon (Acute ~11/04/18). Vaginal dryness (Chronic). Surgical History . Appendectomy. section. X 3. H/O esophagogastroduodenoscopy (Chronic ~11/04/18). Hysterectomy, Laproscopic (~1991). STILL HAS RIGHT OVARY. S/P colonoscopy (Acute ~11/04/18) PREVIOUS FUNCTIONAL STATUS/SOCIAL/FAMILY SUPPORTS:: Katherine lives in [place] with her Manuel in a single story home. They have five adult children who live in various places, not local. Manuel is identified as her main support. 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 She is otherwise independent at baseline. CURRENT FUNCTIONAL STATUS:: Katherine was lying in bed when CM met with her. She stated that she was in more pain from this surgery than her last one, which was in March. She reported that the medication for pain has made her sleepy, and she did not get much rest last night. She stated that Dr. Bills was planning on checking in on her this afternoon, and they would decide if she would return home today or stay for pain control. CM will continue to follow. ADVANCE DIRECTIVES:: Manuel, her , is listed as agent. Has patient been provided with information about the portal?: Yes Did the patient sign up for the portal?: No CODE STATUS:: Full Code INSURANCE COVERAGE / FINANCIAL ISSUES:: [employer] CURRENT HOME/COMMUNITY SERVICES/EQUIPMENT:: Katherine has a cane and a FWW. PRIMARY CARE PHYSICIAN:: Melita Anne POTENTIAL DISCHARGE NEEDS:: Evaluations for further needs, follow up appointments PATIENT/FAMILY EDUCATION NEEDS:: Review discharge instructions regarding activity level and medication, discussion of self care including 'ask me three' ANTICIPATED BARRIERS TO DISCHARGE:: None identifed at this time. TRANSPORTATION:: Her Manuel will drive her via private vehicle. PLAN:: Per provider, Katherine will remain at [facility] for pain control this evening, and will be reevaluated for discharge tomorrow. Katherine will return home with no additional services when medically cleared. She will follow up with Ortho, as recommended. Her , Manuel will drive her home via private vehicle when ready. CM will continue to follow.
[2019-05-28 11:20] VITALS: BP 129/85; PULSE 75; RESP 18; TEMP 36.6; O2SAT 91
--- NOTE | 2019-05-28 12:49 | W.PM.PROGNOT ---
Date of Service Date of service: 05/28/19 Time of Service: 12:49 Assessment and Plan Assessment and plan (1) Osteoarthritis of left knee: Status: Chronic Assessment and plan: Katherine is a 58-year-old status post left knee replacement. Unfortunate, she has had a issues with migraine, nausea, and pain. We are going to need to more acutely treat her pain and therefore I ordered IV ketorolac. She also may use the IV hydromorphone necessary. We will continue to mobilize as much as possible. She will hopefully discharged home once her pain regimen is controlled and her nausea and headaches have improved. For this reason, I will make her an inpatient admission. Qualifiers: Osteoarthritis type: primary Qualified Code(s): M17.12 - Unilateral primary osteoarthritis, left knee Subjective Subjective Interval history since last seen: Katherine unfortunately has had a difficult recovery. She has had a migraine yesterday with some nausea. She has been able to mobilize but is also had significant pain. Has not been controlled on her oral agents. She has had difficulty mobilizing on her own. She denies chest pain or shortness of breath. She still continues have a headache, although it is much better than it was. She has been able to void spontaneously. Exam Narrative Exam Narrative: Resting comfortably in the bed. Left leg dressing is clean dry and intact. I did remove the Mann wrap and the underlying Mepilex is without drainage. No significant ecchymosis except for very small area over the medial aspect of the knee. Intact ankle dorsiflexion and plantarflexion. Sensation intact light touch over the deep and superficial peroneal nerve and tibial nerve. Objective Objective Clinical Data: Vital Signs Temperature 36.6 C 05/28/19 11:20 Temperature Source Tympanic 05/28/19 11:20 Pulse 75 05/28/19 11:20 Pulse Rhythm Regular 05/28/19 01:25 Respiratory Rate 18 05/28/19 11:20 Respiratory Effort 05/28/19 01:25 Respiratory Depth Normal 05/28/19 01:25 Respiratory Pattern Normal 05/28/19 01:25 Blood Pressure 129/85 05/28/19 11:20 Pulse Oximetry 91 L 05/28/19 11:20 Respiratory End-tidal CO2 36 05/27/19 11:10 Oxygen Delivery Method Room Air 03/04/20 11:20 Oxygen Flow Rate 0 05/28/19 11:20 Pain Level 6 05/28/19 12:13 Comment 05/28/19 03:27 Intake & Output 05/27/19 05/28/19 05/28/19 23:59 11:59 23:59 Intake Total 1222 / 1782 680 / 1730 1050 / 1730 Output Total 1500 / 2000 950 / 1225 275 / 1225 Balance -278 / -218 -270 / 505 775 / 505 Intake: IV 742 / 1262 1050 / 1050 Oral 480 / 520 680 / 680 Output: Urine 1500 / 1700 950 / 1225 275 / 1225 Other: Urine Color Yellow Yellow Yellow Urine Appearance Clear Clear Clear Voiding Methods Toilet
[2019-05-28] MEDS: Ketorolac 15 MG/ML VIAL IVP ×3 (13:23→23:59)
[2019-05-28] MEDS: Normal Saline Flush 10 ML SYR IV ×2 (13:23→18:07)
--- NOTE | 2019-05-28 15:31 | CHAPLAIN ---
Ehsan and I remembered each other from working on her advance directive a while ago. She said this knee surgery is proving more painful than her first. She was sleepy, so we did not have a long conversation.
[2019-05-28 16:49] VITALS: BP 127/83; PULSE 81; RESP 17; TEMP 37.1; O2SAT 98
[2019-05-28] MEDS: Pravastatin 20 MG TAB PO (19:43)
[2019-05-28 21:05] VITALS: BP 138/87; PULSE 85; RESP 17; TEMP 36.8; O2SAT 93
[2019-05-28] MEDS: Gabapentin 300 MG CAP PO (21:47)
[2019-05-29 00:20] VITALS: BP 157/88; PULSE 98; RESP 18; TEMP 36.7; O2SAT 92
[2019-05-29 04:08] VITALS: BP 133/86; PULSE 98; RESP 12; TEMP 37.6; O2SAT 91
[2019-05-29] MEDS: HYDROmorphone 2 MG TAB PO ×2 (04:18→07:55)
[2019-05-29] MEDS: Ketorolac 15 MG/ML VIAL IVP (05:58)
[2019-05-29] MEDS: Normal Saline Flush 10 ML SYR IV ×2 (05:58)
--- NOTE | 2019-05-29 06:55 | W.PM.DS.N ---
Date of service: 05/29/19 Time of Service: 08:04 DS: Diagnosis Discharge Diagnosis (1) Osteoarthritis of left knee: Status: Acute Discharge Plan Disposition Patient Disposition: HOME Condition: Improving Discharge Details Reason For Visit: LEFT KNEE DJD Admit Date/Time: 05/28/19 12:48 Admit Provider: Rick Bills Attending Provider: Rick Bills Primary Care Provider: Melita Anne Hospital Course Hospital Course: Patient was admitted to the medical/surgical floor following the procedure. There were no surgical complications. However, Katherine was limited by migraine with some nausea following the surgery. This limited her mobilization on the first day and required other interventions. Additionally, she had acute pain which required IV narcotic and management of her pain program. On postop day #2 she was having better pain control. Her mobilization began postoperatively but she was able to participate more with physical therapy with better pain control on postop day #2. The olivo catheter was removed and voiding spontaneously. Vitals were stable. Physical therapy worked with the patient and was cleared for discharge home. Home Meds and New Rx's Prescriptions: New aspirin 81 mg tablet,delayed release (DR/EC) 81 mg PO BID Qty: 60 RF: 0 acetaminophen 500 mg tablet 1,000 mg PO Q8H PRN (Reason: pain) Qty: 90 RF: 3 hydromorphone 2 mg tablet 2 mg PO Q4H PRN (Reason: pain) Qty: 18 RF: 0 gabapentin 300 mg capsule 300 mg PO QHS Qty: 14 RF: 0 Continued cetirizine [Zyrtec] 10 mg tablet 10 mg PO DAILY Qty: 90 RF: 3 lisinopril 20 mg tablet 20 mg PO DAILY Qty: 90 RF: 3 EXCEDRIN MIGRAINE TABLET 1 EACH tablet 2 ea PO daily prn RF: 0 multivitamin with minerals [Hair,Skin and Nails] 1 EACH tablet 1 ea PO DAILY RF: 0 omeprazole 20 mg capsule,delayed release(DR/EC) 20 mg PO BID Qty: 90 RF: 3 pravastatin 20 mg tablet 20 mg PO QPM Qty: 90 RF: 3 meloxicam 15 mg tablet 15 mg PO DAILY Qty: 30 RF: 6 Discontinued acetaminophen 500 mg tablet 1,000 mg PO Q8H PRN (Reason: pain) Qty: 90 RF: 3 Discharge Instructions Additional Instructions: Dr. Bills?s Total Knee Discharge Instructions Activity: The most important activity is to walk. You should try to take short walks a few times a day. It is important that when resting you work on keeping the knee straight. Avoid putting a pillow behind the knee as this will encourage flexion. Work on range of motion exercises as provided by Physical Therapy. - Start outpatient physical therapy within 2 weeks. - You should wear the ELIZABETH hose on both legs for 2 weeks. Dressing: Keep the surgical dressing in place for at least one week. After the first week it may be removed and replace with light gauze and tape or nothing. It may get wet after 3 days but avoid soaking the dressing. If it gets wet, just lightly pat dry. Medications: - You should take Tylenol and anti-inflammatory Meloxicam as your primary pain control medications - You have been prescribed a stronger pain medication Hydromorphone (Dilaudid) for breakthrough pain, take as needed as prescribed. - You should continue your stomach acid reduction agent Omeprazole to help reduce stomach acid and reflux. - You will be taking Aspirin 81mg twice a day for DVT prevention unless instructed otherwise. - If you have constipation you should take Colace or Miralax (both [id number]). It takes most people 3-4 days to have a bowel movement. Follow-up: 2 weeks Referrals: Rick Bills MD [ [facility] STAFF PHYSICIAN] - Activity:: Activity as Tolerated Equipment/Supplies:: No Equipment Needed Diet:: As Tolerated Discharge Orders Discharge Orders: Discharge Order (Routine); Ordered 05/29/19 Ordered By: Rick Bills DS: Summary Status at Discharge Functional status at discharge: uses cane/walker Overall status at discharge: patient is progressing back to baseline Mental Status: mental status grossly normal Speech and Movement: speech and movement normal Mood: congruent mood Affect: normal affect Exam Psych Mental Status: mental status grossly normal Speech and Movement: speech and movement normal Mood: congruent mood Affect: normal affect DS: Data Vitals/I&O Vitals and I&O: Vital Signs Temperature 37.6 C H 05/29/19 04:08 Temperature Source Tympanic 05/29/19 04:08 Pulse 98 H 05/29/19 04:08 Pulse Rhythm Regular 05/28/19 21:06 Respiratory Rate 12 05/29/19 04:08 Respiratory Effort Non-Labored 05/28/19 21:06 Respiratory Depth Normal 05/28/19 21:06 Respiratory Pattern Normal 05/28/19 21:06 Blood Pressure 133/86 05/29/19 04:08 Pulse Oximetry 91 L 05/29/19 04:08 Respiratory End-tidal CO2 36 05/27/19 11:10 Oxygen Delivery Method Room Air 05/29/19 04:08 Oxygen Flow Rate 0 05/29/19 04:08 Pain Level 4 05/29/19 04:18 Comment 05/29/19 04:08 Intake & Output 05/28/19 05/28/19 05/29/19 11:59 23:59 11:59 Intake Total 680 / 2390 1710 / 2390 1000 / 1000 Output Total 1000 / 5 1075 / 2075 1350 / 1350 Balance -320 / 315 635 / 315 -350 / -350 Intake: IV 1050 / 1050 1000 / 1000 Oral 680 / 1340 660 / 1340 Output: Urine 999 / 5 1075 / 5 1350 / 1350 Other: Urine Color Yellow Yellow Yellow Urine Appearance Clear Clear Clear Urine Odor Normal Voiding Methods Toilet Toilet PFSH Medical History Rankin's esophagus determined by biopsy (Acute ~11/04/18) As per patient states she does not have it Colorectal polyp detected on colonoscopy (Acute) Concern about sexually transmitted disease in female without diagnosis (Resolved) Elevated cholesterol (Chronic) Essential hypertension (Chronic) Gastritis determined by endoscopy (Acute ~11/04/18) GERD (gastroesophageal reflux disease) (Acute 12/22/13) PT. STATES HORRIBLE GAG REFLEX Obesity (Chronic) Osteoarthritis of left knee (Chronic) s/p L TKA 05/27/19 Injected: 08/09/2018 Synvisc: 09/23/2018 Osteoarthritis of right knee (Resolved) S/P TKA Injected: 08/09/2018 Synvisc: 09/23/2018 Seasonal allergic rhinitis (Acute 12/22/13) pt. reports hemp causes this Tubular adenoma of colon (Acute ~11/04/18) Vaginal dryness (Chronic) Surgical History Appendectomy section X 3 H/O esophagogastroduodenoscopy (Chronic ~11/04/18) Hysterectomy, Laproscopic (~1991) STILL HAS RIGHT OVARY S/P colonoscopy (Acute ~11/04/18) Status post total right knee replacement (Acute) Family History Mother Essential hypertension Hyperlipidemia Father , 84 Diabetes Essential hypertension Heart disease Hyperlipidemia Cancer of kidney Skin cancer Sister Diabetes Essential hypertension Depression Hyperlipidemia Asthma Sister , 49 Diabetes Essential hypertension Hyperlipidemia Lung cancer Liver cancer Sister No problems noted. Brother Diabetes Essential hypertension Hyperlipidemia Maternal Grandfather , 78 Primary tuberculosis Heart disease Paternal Grandfather , 85 Diabetes Essential hypertension Heart disease Hyperlipidemia Maternal Grandmother , 69 Essential hypertension Heart disease Hyperlipidemia Paternal Grandmother Essential hypertension Colon cancer Daughter , 8 AML (acute myeloblastic leukemia) Son No problems noted. Son No problems noted. Social History Smoking/Tobacco Use Status: Former Tobacco Use Quit Date: 03/26/02 Tobacco: How many years used: 20 Second Hand Exposure: Yes Alcohol Intake: never Drug use: Never Substance use type: does not use Caregiver/Support person: No Foster care: No Household members: spouse Housing: house Number of Children: 2 number of grandchildren: 11 Communication Needs: None Do you need help understanding health information?: Rarely Pets and animals: Yes Pets and animals: cat(s) and dog(s) Sexually active: No Do you think of yourself as: straight/heterosexual Current gender identity: female What is your relationship status?: How often do you talk on the phone with friends or family?: decline to answer How often do you get together with friends or relatives?: decline to answer How often do you attend jainism or islam services?: decline to answer Do you belong to any clubs or organized social groups?: no Panel score (0-1 are the most socially isolated patients): 1 What type of physical activity do you participate in: decline to answer Duration: 15-30 minutes/day Frequency: 1-2 times per week Rachel/[employer] Special rachel needs: No Helmet use: No Drive intox or ride w/intox mule driver: No Do you feel safe at home: Yes Do you feel safe in your relationship?: Yes
[2019-05-29] MEDS: Aspirin E.C. 81 MG TABEC PO (07:55)
[2019-05-29] MEDS: Omeprazole 20 MG CAPCR PO (07:55)
[2019-05-29] MEDS: Lisinopril 20 MG TAB PO (07:55)
[2019-05-29] MEDS: Cetirizine 10 MG TAB PO (07:55)
[2019-05-29] MEDS: Acetaminophen 500 MG TAB 1000 MG PO (07:56)
[2019-05-29 08:32] VITALS: BP 138/86; PULSE 100; RESP 14; TEMP 36.9; O2SAT 93
--- NOTE | 2019-05-29 08:50 | PDOC.CMDIS ---
- If Service Date Differs Date of service: 05/29/19 Time of Service: 08:50 LACE Index Scoring Tool - Questions: Length of Stay (in days): 3 Acuity (Admit via E.D.?): No E.D. Visits: 1 - Answers: Total Score: 4 Risk of Readmission: Low Risk Care Management Discharge Reason for Hospitalization: Left Knee DJD Discharge Plan: Katherine will return home with no additional services at this time. She will follow up with Ortho, as recommended. She will have out patient PT in two weeks. Her will drive her home via private vehicle. She is agreeable to the plan. Patient/Family Education Needs: Review discharge instructions regarding activity levels and medications, discussion of self care needs including ask me three Services Needed at Discharge: Physical Therapy (out pt)
--- NOTE | 2019-05-29 13:04 | PT.INTREAT ---
PT Notes Visit Reasons: LEFT KNEE DJD Inpatient Physical Therapy Treatment Note [facility] Date: 05/28/2019 SUBJECTIVE: Katherine states that she is exhausted. She denies any significant pain complaints, however increased fatigue. OBJECTIVE: [] BED MOBILITY/TRANSFERS Sit-supine: CGA Sit-stand: CGA Stand-sit: CGA GAIT Assistive Device: FWW Weight bearing: AT Assist: CGA Distance: 120' THEREX: global LE strength and stabilization with focus on quads. ROM while seated in chair. ASSESSMENT: tolerated session well, despite c/o fatigue. PLAN: possible d/c to home with . TREATMENT CODE/TIME: 30 min, [id number], [id number]
--- NOTE | 2019-05-29 18:16 | PT.INDS ---
Date of service: 05/29/19 PT Notes Visit Reasons: LEFT KNEE DJD \ Physical Therapy Inpatient Discharge Summary Date: 05/29/2019 Dates of service: 05/27/2019 through 05/28/2019 This is a clinical summary of care provided on the duration of dates listed above. No charge was made in the completion of this documentation. Referring Doctor: Rick Haque MD PT Orders: PT CONSULT: S/P ortho surgery Precautions: Fall. Standard. Activity as tolerated. Patient Profile/Admitting Diagnosis: Pt is a 58-year-old female with history of knee osteoarthritis presenting status post left TKA on POD 0. PMHX: Medical History (Updated 04/01/19 @ 09:17 by Luis Fernando Maher) Rankin's esophagus determined by biopsy (Acute ~11/04/18) As per patient states she does not have it Colorectal polyp detected on colonoscopy (Acute) Concern about sexually transmitted disease in female without diagnosis (Resolved) Elevated cholesterol (Chronic) Essential hypertension (Chronic) Gastritis determined by endoscopy (Acute ~11/04/18) GERD (gastroesophageal reflux disease) (Acute 12/22/13) PT. STATES HORRIBLE GAG REFLEX Obesity (Chronic) Osteoarthritis of left knee (Chronic) Injected: 08/09/2018 Synvisc: 09/23/2018 Osteoarthritis of right knee (Chronic) Injected: 08/09/2018 Synvisc: 09/23/2018 Seasonal allergic rhinitis (Acute 12/22/13) pt. reports hemp causes this Tubular adenoma of colon (Acute ~11/04/18) Vaginal dryness (Chronic) Surgical History Appendectomy section X 3 H/O esophagogastroduodenoscopy (Chronic ~11/04/18) Hysterectomy, Laproscopic (~1991) STILL HAS RIGHT OVARY S/P colonoscopy (Acute ~11/04/18) Social History/Home Situation: Pt lives at home with her . Notes that there is one step and a small threshold into the home. Once in her home there are no stairs other than to the basement, but no reason for her to need to use. Equipment Owned/DME: cane Subjective: NT Objective: General Observation: NT Mental Status: NT Pain: NT ROM: Right Upper Extremity: Shoulder Flexion WFL. Shoulder abduction WFL. Elbow flexion WFL. Wrist flexion WFL. Opening and closing of hand WFL. Left Upper Extremity: Shoulder Flexion WFL. Shoulder abduction WFL. Elbow flexion WFL. Wrist flexion WFL. Opening and closing of hand WFL. Right Lower Extremity: Hip flexion WFL. Hip abduction WFL. Knee flexion 115 degrees. Knee extension -15 degrees. Ankle dorsiflexion WFL. Ankle plantarflexion WFL. Left Lower Extremity: Hip flexion WFL. Hip abduction WFL. Knee flexion WFL. Ankle dorsiflexion WFL. Ankle plantarflexion WFL. Strength: Right Upper Extremity: Shoulder flexors 4+/5. Shoulder abductors 4+/5. Elbow flexors 4+/5. Elbow extensors 5/5. Judicial Assistant strong. Left Upper Extremity: Shoulder flexors 4+/5. Shoulder abductors 4+/5. Elbow flexors 4+/5. Elbow extensors 5/5. Judicial Assistant strong. Right Lower Extremity: Hip flexors 4+/5. Hip abductors 5/5. Knee flexors 4+/5. Knee extensors 4+/5. Ankle dorsiflexors 5/5. Ankle plantarflexors 5/5. Left Lower Extremity: Hip flexors 4/5. Hip abductors 5/5. Knee flexors 3-/5. Knee extensors 3-/5. Ankle dorsiflexors 4/5. Ankle plantarflexors 5/5. Bed Mobility/Transfers: Rolling independent Supine to sit independent with HOB flat Sit to supine independent with HOB flat Sit to stand SBA Stand to sit SBA Bed to chair SBA Chair to bed SBA Gait: Pt was able to ambulate WBAT 30 feet x 2 using a front-wheeled walker. Step to pattern with decreased obdulia. Asymmetrical length and height of step. SBA by MEDICAL OFFICE TECHNOLOGY INSTRUCTOR per recent note. Balance: Static Sitting: Normal Dynamic Sitting: Normal Static Standing: Fair Dynamic Standing: Fair Assessment: Pt is a 58-year-old female with history of knee osteoarthritis presenting status post left TKA on POD 0. Patient presented to physical therapy with impairment level findings and functional limitations as listed below. She demonstrated independence with bed mobility. Patient presented with clinical signs and symptoms consistent with current/admitting diagnoses that have resulted to mobility limitations, gait instability and generalized weakness as demonstrated by the following impairment level findings: 1. Decreased strength to L LE hip and knee muscle groups 2. Impaired sitting/standing balance 3. Impaired activity tolerance 4. Limitation of joint range of motion in left knee Impairments contributed to the following functional limitations: 1. Increased dependence with transfers 2. Inability to safely ambulate without assistive device and physical assistance 3. Increase completion time for mobility ADL performance 4. Increased fall risk 5. Inability to negotiate steps alone safely Goals: Goals X1 week 1. Sit-Stand independent MET 2. Stand-Sit independent MET 3. Bed-Chair independent NOT MET 4. Chair-Bed independent NOT MET 5. Independent gait on level surface with use of least restrictive device for at least 300 feet without report of pain nor dyspnea NOT MET 6. Independent stair negotiation while holding onto bilateral rails for at least 5 steps without report of pain nor dyspnea NOT MET 7. Independent with home exercise program NOT MET 8. Good dynamic standing balance/tolerance NOT MET DISCHARGE RECOMMENDATIONS: Discharge to home with front-wheeled walker when medically cleared. May benefit from skilled physical therapy services according to orthopedic surgeon's timeline recommendations. Patient will be educated and trained on home exercise program per TKA exercise protocol in preparation for outpatient physical therapy services. TREATMENT CODE/TIME: TX Thank you very much for this referral. Mima Machado PT, DPT, CLT [facility] [place], [place]
== END 2019-05-29 09:10 | disposition home or self-care (01) | DRG 470 ==
LOC: PDS 10:56 → MS 10:57
PROVIDERS: Admitting Provider Student in an Organized Health Care Education/Training Program; PCP Nurse Practitioner; Visit Provider Student in an Organized Health Care Education/Training Program
PROC: 0SRD0J9 Replacement of Left Knee Joint with Synthetic Substitute, Cemented, Open Approach (ICD-10-PCS; CPT 27447; principal; 2019-05-27 08:00)
DX: M17.12 Unilateral primary osteoarthritis, left knee (principal); M25.562 Pain in left knee; Z96.652 Presence of left artificial knee joint; G43.909 Migraine, unspecified, not intractable, without status migrainosus; R11.0 Nausea; G89.18 Other acute postprocedural pain; Z96.651 Presence of right artificial knee joint; I10 Essential (primary) hypertension; E78.00 Pure hypercholesterolemia, unspecified; K21.9 Gastro-esophageal reflux disease without esophagitis
CPT/HCPCS: 27447; 76942; 97110; 97162; 97530; NC; G0378; J0690; J1885; J2250; J2405; J3010

== ENCOUNTER 2019-06-13 10:09 | Outpatient (CLI) | payer MEDICAID, SELFPAY ==
--- NOTE | 2019-06-13 09:30 | DI.RAD_ITS ---
EXAM: XR KNEE LT 1V CLINICAL HISTORY: 1ST POST OP TECHNIQUE: COMPARISON: XR KNEE RT 1V from 04/24/2019 FINDINGS: Lateral view of the left knee was obtained. There is a total knee joint replacement position. [place] nents appear well seated. No other bony abnormality seen. IMPRESSION:
--- NOTE | 2019-06-13 09:30 | DI.RAD_ITS ---
EXAM: XR STANDING ALIGNMENT CLINICAL HISTORY: 1ST POST OP TECHNIQUE: COMPARISON: XR STANDING ALIGNMENT from 04/24/2019 FINDINGS: AP standing alignment views were obtained. There are slight degenerative changes of both hips. Ther e are bilateral total knee joint prosthesis in position. IMPRESSION:
== END 2019-06-13 10:29 ==
PROVIDERS: PCP Nurse Practitioner; Visit Provider Student in an Organized Health Care Education/Training Program
DX: Z96.653 Presence of artificial knee joint, bilateral (principal); M16.0 Bilateral primary osteoarthritis of hip
CPT/HCPCS: 73560; 77073

== ENCOUNTER 2019-09-12 02:58 | Outpatient (CLI) | payer MEDICAID, SELFPAY ==
--- NOTE | 2019-09-12 08:09 | DI.MAMMO_ITS ---
EXAM: MAMMO SCREENING CLINICAL HISTORY: screening,Z12.39 TECHNIQUE: Mammograms were interpreted according to the usual protocol including computer analysis w [email or web address] CAD system, tomosynthesis and C-view imaging. COMPARISON: 2012 through 2019. FINDINGS: The breasts are composed of scattered fibroglandular densities, Breast Density category B. No suspicious masses or suspicious microcalcifications are seen. There are scattered benign calcific ations. Circumscribed benign bilateral nodules are again. A biopsy marker clip is noted in the infe rior left breast. No skin thickening or abnormal axillary lymph nodes are seen. There has been no significant change from prior exams. IMPRESSION: BI-RADS Category 2 - Benign Findings Yearly screening mammography is recommended. Breast Density Category B, scattered fibroglandular densities.
== END 2019-09-12 03:18 ==
PROVIDERS: PCP Nurse Practitioner; Visit Provider Nurse Practitioner
DX: Z12.31 Encounter for screening mammogram for malignant neoplasm of breast (principal)
CPT/HCPCS: 77063; 77067

== ENCOUNTER 2019-11-14 08:08 | Outpatient (CLI) | payer MEDICAID, SELFPAY ==
--- NOTE | 2019-11-14 07:45 | DI.RAD_ITS ---
EXAM: XR KNEE RT 3V AP,LAT,KOBE INDICATION: knee pain. COMPARISON: CR XR KNEE RT 1V from 04/24/2019 CR XR KNEE LT 1V from 06/13/2019 CR XR STANDING ALIGNMENT from 06/13/2019 CR XR KNEE LT 3V AP,LAT,KOBE from 11/14/2019 TECHNIQUE: 2D digital imaging was performed. FINDINGS: Has been no change in the alignment of the bilateral total knee prostheses. No abnormal bony lucenc ies are seen. DATA REPOSITORY: RADIATION DOSE DELIVERED:
== END 2019-11-14 08:28 ==
PROVIDERS: PCP Nurse Practitioner; Referring Provider Nurse Practitioner; Visit Provider Student in an Organized Health Care Education/Training Program
DX: Z96.651 Presence of right artificial knee joint (principal); Z96.652 Presence of left artificial knee joint
CPT/HCPCS: 73562

== ENCOUNTER 2019-12-25 02:33 | Outpatient (CLI) | payer MEDICAID, SELFPAY ==
--- NOTE | 2019-12-25 07:15 | DI.RAD_ITS ---
EXAM: XR FOOT LT COMPLETE CLINICAL HISTORY: Pain and bruising after a crush injury,M79.673. TECHNIQUE: 2D digital imaging was performed. COMPARISON: CR XR foot LT complete from 11/11/2018 FINDINGS: BONES: No acute fracture is present. No bony destructive lesion is seen. There is an old fracture def ormity of the 3rd metatarsal. A tiny heel spur is seen. JOINTS: No dislocation present. Mild intertarsal, tarsometatarsal and interphalangeal joint degenerat herb changes. SOFT TISSUE: Normal. IMPRESSION: No acute abnormality. DATA REPOSITORY: RADIATION DOSE DELIVERED:
== END 2019-12-25 02:53 ==
PROVIDERS: PCP Nurse Practitioner; Visit Provider Family Medicine
DX: M79.672 Pain in left foot (principal); M77.32 Calcaneal spur, left foot; S97.82XA Crushing injury of left foot, initial encounter
CPT/HCPCS: 73630

== ENCOUNTER 2020-04-01 02:54 | Outpatient (CLI) | payer MEDICAID, SELFPAY ==
[2020-04-01 10:42] LABS: HCT 41.2 % (36.0-46.0); HGB 12.9 g/dL (11.2-15.7); MCH 26.5 pg (27.0-33.0); MCHC 31.3 % (32.0-36.0); MCV 84.8 fL (80-95); MPV 10.2 fL (8.0-11.0); Platelet Count 340 10^3/uL (130-400); RBC 4.86 10^6/uL (3.93-5.22); RDW 13.3 % (11.7-14.6); RDW-SD 41.2 fL; WBC 8.65 10^3/uL (4.4-10.8)
[2020-04-01 11:28] LABS: ALT 21 U/L (14-59); AST 12 U/L (15-37); Albumin 3.9 g/dL (3.4-5.0); Alkaline Phosphatase 98 U/L (46-116); Anion Gap 6.9 mmol/L (3-11); BUN 12 mg/dL (7-18); Bilirubin, Total 0.2 mg/dL (0.2-1.0); CO2 29.1 mmol/L (21.0-32.0); CREATININE 0.76 mg/dL (0.55-1.02); Calcium 8.7 mg/dL (8.5-10.1); Calculated LDL 137 mg/dL (<100); Chloride 104 mmol/L (98-107); Cholesterol 224 mg/dL (<200); Glucose 91 mg/dL (74-106); HDL Cholesterol 51 mg/dL (40-60); Potassium 4.4 mmol/L (3.5-5.1); Sodium 140 mmol/L (136-145); Total Protein 7.4 g/dL (6.4-8.2); Triglyceride 183 mg/dL (<150)
== END 2020-04-01 03:14 ==
PROVIDERS: PCP Nurse Practitioner; Visit Provider Nurse Practitioner
DX: E78.00 Pure hypercholesterolemia, unspecified (principal); I10 Essential (primary) hypertension
CPT/HCPCS: 36415; 80053; 80061; 85027

== ENCOUNTER 2020-04-01 10:21 | Outpatient (CLI) | payer MEDICAID, SELFPAY ==
--- NOTE | 2020-04-01 09:46 | DI.RAD_ITS ---
EXAM: XR KNEE LT 2V AP,LAT CLINICAL HISTORY: f/u TKA. TECHNIQUE: 2D digital imaging was performed. COMPARISON: CR XR KNEE RT 3V AP,LAT,KOBE from 11/14/2019 FINDINGS: AP and lateral views of the left knee reveal satisfactory position alignment of the components of the prosthesis with no evidence of fracture, loosening, no radiographic evidence of osteomyelitis. IMPRESSION: DATA REPOSITORY: RADIATION DOSE DELIVERED:
--- NOTE | 2020-04-01 09:46 | DI.RAD_ITS ---
EXAM: XR KNEE RT 2V AP,LAT CLINICAL HISTORY: f/u R TKA. TECHNIQUE: 2D digital imaging was performed. COMPARISON: CR XR KNEE LT 2V AP,LAT from 04/01/2020 FINDINGS: Components right knee prosthesis appear satisfactory position alignment. No fracture or loosening. No radiographic evidence of osteomyelitis. IMPRESSION: DATA REPOSITORY: RADIATION DOSE DELIVERED:
== END 2020-04-01 10:41 ==
PROVIDERS: PCP Nurse Practitioner; Referring Provider Nurse Practitioner; Visit Provider Student in an Organized Health Care Education/Training Program
DX: Z96.653 Presence of artificial knee joint, bilateral (principal)
CPT/HCPCS: 73560

== ENCOUNTER 2020-04-22 02:10 | Outpatient (CLI) | payer MEDICAID, SELFPAY ==
--- NOTE | 2020-04-22 11:45 | DI.MRI_ITS ---
EXAM: MR BRAIN WO/W CLINICAL HISTORY: Worsening headaches, with visionchanges, lighthead TECHNIQUE: Multiplanar multisequence MRI of the brain was performed. Both noninfused and contrast i nfused sequences were performed. IV Contrast injected was 17 cc Dotarem. COMPARISON: No exams were available for comparison FINDINGS: CEREBRAL PARENCHYMA: No evidence of intracranial hemorrhage, mass effect nor shift of midline structu re. No extraaxial fluid collections. Ventricles are not enlarged nor shifted. There is no significant focal signal abnormality in the cerebellar hemispheres nor within the alda, m idbrain, and thalami. There is no abnormal signal abnormality in the periventricular white matter. There are no ring enhancing lesions in the brain. There is no abnormal meningeal enhancement. PITUITARY GLAND: No mass nor parasellar abnormality. No obvious abnormality in the cavernous sinuses. FLOW VOIDS: The expected flow void are noted. No evidence of obvious aneurysm nor obvious vascular ma lformation. PARANASAL SINUSES: A bone mucosal thickening and fluid noted in the right maxillary sinus. Left maxil davie sinus is clear as are the sphenoid and frontal sinuses and ethmoidal air cells. ORBITS: No obvious abnormal findings. IMPRESSION: 1. No significant intracranial findings on this MRI scan of the brain. 2. No abnormal enhancing intracranial finding. 3. Apparently there was a concern for possible intracranial aneurysm. If clinically indicated magneti c resonance angiography of the brain can be ordered. DATA REPOSITORY:
[2020-04-22] MEDS: Normal Saline Flush 10 ML SYR IVP (12:13)
[2020-04-22] MEDS: Gadoterate meglumine 20 ML VIAL 17 ML IVP (12:14)
== END 2020-04-22 02:30 ==
PROVIDERS: PCP Nurse Practitioner; Visit Provider Nurse Practitioner
DX: R51.9 Headache, unspecified (principal); R42 Dizziness and giddiness; H53.8 Other visual disturbances
CPT/HCPCS: 70553

== ENCOUNTER 2020-05-13 01:15 | Outpatient (CLI) | payer MEDICAID, SELFPAY ==
--- NOTE | 2020-05-13 08:30 | DI.MRI_ITS ---
EXAM: MR ANGIO BRAIN WO CLINICAL HISTORY: Worsening HAs, Fhx brain aneurysm,MIGRAINE,Z82.49,G43.909 TECHNIQUE: Multiplanar multisequence MRI of the brain was performed. COMPARISON: MR MR BRAIN WO/W from 04/22/2020 FINDINGS: MRA: ANTERIOR CIRCULATION: Both internal carotid arteries are patent at the skull base-carotid canals as w ell as within the cavernous sinuses. There is no evidence of significant narrowing or aneurysm at th e level of the supraclinoid aspect of these vessels.. Both middle cerebral arteries are patent and w ithout aneurysms out to their sylvian fissure branches. Both A1 segments are patent as are both ante rior cerebral arteries. There is no evidence of aneurysm at the level of the anterior communicating artery.. POSTERIOR CIRCULATION: At the skull base the basilar artery is formed by the dominant right vertebral artery and a twig like contribution from the left vertebral artery. Basilar artery exhibits normal diameter. There is no evidence of aneurysm at the tip of the basilar artery. However, there is mild fusiform dilatation of the left posterior cerebral artery just beyond its origin where it exhibits a diameter of 2.2 millimeters. There is no hickey aneurysm at this level. Similar findings are not se en in the right posterior cerebral artery. Incidentally noted is a posterior communicating artery on the right side of the [id number].. N o aneurysm at this level. CEREBRAL PARENCHYMA: No evidence of intracranial hemorrhage, mass effect nor shift of midline structu re. No extraaxial fluid collections. Ventricles are not enlarged nor shifted. There is no significant focal signal abnormality in the cerebellar hemispheres nor within the alda, m idbrain, and thalami. There is no abnormal signal abnormality in the periventricular white matter. PARANASAL SINUSES: There is complete opacification of the right maxillary sinus. The opposite-left m axillary sinuses clear as are the sphenoid and frontal sinuses. Ethmoid air cells are also clear. ORBITS: No obvious findings. IMPRESSION: There is mild focal fusiform dilatation of the left posterior cerebral artery just beyond its origin, exhibiting a diameter of 2.2 millimeters at this level. There is no true hickey aneurysm. No other significant intracranial vascular findings. Incidentally noted is complete opacification of the right maxillary sinus DATA REPOSITORY:
== END 2020-05-13 01:16 ==
LOC: DI 01:15
PROVIDERS: PCP Nurse Practitioner; Visit Provider Nurse Practitioner
DX: G43.909 Migraine, unspecified, not intractable, without status migrainosus (principal); Z82.49 Family history of ischemic heart disease and other diseases of the circulatory system; R51.9 Headache, unspecified
CPT/HCPCS: 70544

== ENCOUNTER 2020-06-12 18:39 | Emergency (ER) | payer MEDICAID, SELFPAY ==
[2020-06-12] VITALS (30 sets, daily range): BP systolic 115–162; BP diastolic 60–89; PULSE 63–84; RESP 12–28; TEMP 36.3; O2SAT 92–98
--- NOTE | 2020-06-12 18:30 | DI.CT_ITS ---
EXAM: CT BRAIN NECK CTA CLINICAL HISTORY: Sudden onset dizziness. TECHNIQUE: Imaging Protocol: Axial CT angiography was performed with multi-slice acquisition and mu lti-planar and/or 3D reconstructions. CONTRAST MATERIAL: Intravenous: Omnipaque 350 Contrast volume:85 cc COMPARISON: CT CT CHEST PE CTA from 04/30/2019 FINDINGS: CTA Neck W: Aortic arch anatomy: Un conventional in that the left vertebral artery originates as an independent v essel off the aortic arch instead of arising off the left subclavian artery (conventional fashion). . Anterior circulation: There is no stenosis of the origin of the great vessels off of the aortic arch. The proximal right c ommon carotid artery is somewhat tortuous but without prominent stenosis. Both common carotid arteri es ascend in the neck with normal luminal diameters and without significant stenosis at the level of the carotid bifurcations and proximal internal carotid arteries and both internal carotid arteries ex hibit normal diameter in the upper neck. Also demonstrated to be patent within the skull base-carotid canals. Posterior circulation: The right vertebral artery is dominant. It originates in conventional fashion off the subclavian art eduardo without significant stenosis at its origin a nor evidence of intraluminal thrombus nor dissection within the foramen transverse area. It is sends with a dominant luminal diameter of 4.5 millimeters and is the main contributor to formation of the basilar artery at the skull base. The left vertebral artery is a smaller thinner vessel which does not contribute to the formation of t he basilar artery at the skull base, terminating at the skull base. It is sends with a luminal diame ter of 2.2 millimeters. It arises independently off the aortic arch instead of off of the subclavian artery. It enters the foramen transversarium higher up than its other counterpart. CTA Brain W: Anterior circulation: Both internal carotid arteries are patent in the skull base and carotid canals and within the caverno us sinuses. The supraclinoid aspect of these vessels are patent as are both middle cerebral arteries . No intraluminal thrombus nor aneurysms. Both A1 segments are patent as are the anterior cerebral arteries and there is no evidence of aneurysm at the level of the anterior communicating artery. Posterior circulation: The basilar artery is formed at the skull base by the dominant right vertebral artery and ascends wit h normal luminal diameter. Distally the basilar artery gives off almost imperceptible superior cereb ellar arteries and terminates as posterior cerebral arteries. There is no evidence of aneurysm tip o f the basilar artery. CT BRAIN: No evidence of intracranial hemorrhage, mass effect, or shift of midline structures. No ex tra-axial fluid collections. Ventricles are not enlarged or shifted. No blood within the ventricula r system nor within the basal cisterns. No ring enhancing lesions. No abnormal meningeal enhancemen t. IMPRESSION: 1. No evidence of significant atherosclerotic disease in the carotid arteries in the neck. No intral uminal thrombus. No dissection 2. Right vertebral artery is dominant. Thinner left vertebral artery originates in non conventional fashion off of the aortic arch is an independent vessel, instead of originating in conventional fash ion off of the left subclavian artery. The left vertebral artery terminates at the skull base and do es not contribute to the formation of the basilar artery. 3. No evidence of intraluminal thrombus within the intracranial arteries. No obvious aneurysms. N o ring enhancing lesions in the brain. Study 1st read by [facility]. RADIATION DOSE DELIVERED: 1,729.13mGy.cm Total DLP DATA REPOSITORY: All CT scans at this facility are submitted to the National Radiology Data Registry (NRDR) Dose Index Registry (DIR) with the [employer] (A[employer]). RADIATION OPTIMIZATION: All CT scans at this facility use at least one of these dose optimization te chniques: automated exposure control; mA and/or kV adjustment per patient size (includes targeted exa ms where dose is matched to clinical indication); or iterative reconstruction.
--- NOTE | 2020-06-12 18:30 | DI.RAD_ITS ---
EXAM: XR CHEST 2V PA LATERAL CLINICAL HISTORY: chest pain. TECHNIQUE: 2D digital imaging was performed. COMPARISON: No exams were available for comparison FINDINGS: Chest leads in place. Heart size slightly prominent. The mediastinum is not widened. Lungs are clear. No infiltrates nor pleural effusions. IMPRESSION: No acute pulmonary findings.Mild cardiomegaly. DATA REPOSITORY: RADIATION DOSE DELIVERED:
--- NOTE | 2020-06-12 18:30 | RT.EKG_ITS ---
APPROVED REPORT Exam: Resting ECG Patient Location: E HR:62 bpm ECG Measurements Heart Rate 62 AXIS OH 149 P -3 QRSd 96 QRS -2 QT 426 T 1 QTc 435 Conclusion Sinus rhythm. Nonspecific T abnormalities, anterior leads. poor baseline/wandering
[2020-06-12 18:55] LABS: Abs Immature Grans 0.04 10^3/uL (0.0-0.06); Absolute Basophil Count 0.05 10^3/uL (0.0-0.2); Absolute Eosinophil Count 0.54 10^3/uL (0.0-0.7); Absolute Lymphocyte Count 2.64 10^3/uL (1.2-3.4); Absolute Monocyte Count 1.01 10^3/uL (0.1-0.8); Absolute Neutrophil Count 5.24 10^3/uL (1.2-6.7); Basophils % 0.5; Eosinophils % 5.7; HCT 37.8 % (36.0-46.0); HGB 12.3 g/dL (11.2-15.7); Immature Grans % 0.4; Lymphocytes % 27.7; MCH 27.8 pg (27.0-33.0); MCHC 32.5 % (32.0-36.0); MCV 85.3 fL (80-95); MPV 10.4 fL (8.0-11.0); Monocytes % 10.6; Neutrophils % 55.1; Nucleated RBC 0 %; Platelet Count 295 10^3/uL (130-400); RBC 4.43 10^6/uL (3.93-5.22); RDW 13.4 % (11.7-14.6); RDW-SD 42.2 fL; WBC 9.52 10^3/uL (4.4-10.8)
--- NOTE | 2020-06-12 19:02 | ED.GENADUL_ITS ---
Discharge Plan Disposition Patient Disposition: HOME Condition: Stable Discharge Details Clinical Impression: Cephalgia, Chest pain Primary Care Provider: Melita Anne ED Provider: Micky Freire Home Meds and New Rx's Prescriptions: Continued nystatin 100,000 unit/gram cream 1 applic TP TID PRN (Reason: groin rash) Qty: 30 RF: 0 lisinopril 40 mg tablet 40 mg PO DAILY Qty: 90 RF: 3 cetirizine 10 mg tablet 10 mg PO DAILY PRNRF: 0 pravastatin 20 mg tablet 20 mg PO QPM Qty: 90 RF: 3 [id number]-dwvhixaqkfwdt-[id number] [Fioricet] 50-300-40 mg capsule 1 cap PO BID PRN (Reason: pain) Qty: 30 RF: 0 EXCEDRIN MIGRAINE TABLET 1 EACH tablet 2 ea PO daily prn RF: 0 fexofenadine 180 mg tablet 180 mg PO DAILY RF: 0 omeprazole 20 mg capsule,delayed release(DR/EC) 20 mg PO BID Qty: 90 RF: 3 meloxicam 15 mg tablet 15 mg PO DAILY Qty: 30 RF: 6 acetaminophen 500 mg tablet 1,000 mg PO Q8H PRN (Reason: pain) Qty: 90 RF: 3 Discharge Instructions Instructions: Chest Pain (ED), General Headache (ED) Additional Instructions: Work-up in the ER does not reveal any obvious emergent process. At this time you are feeling significantly improved and requesting discharge. Please watch for new or worsening symptoms and return to the ER for any concerns. Otherwise reach out to your primary care provider on Sunday to discuss your ER visit and ongoing symptoms. At that time set up appointment for outpatient reevaluation. Medical Decision Making This is a 59-year-old female with past physical history of generalized headaches, hypertension, GERD, hyperlipidemia, being referred to [facility] for her migraines. I was able to review her recent MRI-MRA, results are There is mild focal fusiform dilatation of the left posterior cerebral artery just beyond its origin, exhibiting a diameter of 2.2 millimeters at this level. There is no true hickey aneurysm. No other significant intracranial vascular findings. She is presenting today for headache, dizziness, subsequent chest pain, diaphoresis. Nitro made no difference with her symptoms. Clinically she appears well, nontoxic, neurologically intact. Would like to obtain a stat head CT as well as a CTA of her head and neck. Will also initiate cardiac work-up. CTA head and neck and and CT imaging of head reveals no intracranial mass, acute infarct or recent hemorrhage. No large vessel stenosis or occlusion detected involving the major branches of the anterior or posterior intracranial circulation. No evidence of 50% or greater stenosis involving the cervical segments of the right or left internal carotid. Patient made aware of the stat CT imaging. At this time will provide a single tablet of butalbital, acetaminophen, caffeine. We will also provide IV Zofran as she reports her nausea is mild. Given her dizziness is described as the room spinning and worse with head movement, will provide p.o. meclizine as well. Initial laboratory values are unremarkable for any obvious emergent process. Discussed findings with patient. She is relieved. She reports that her dizziness has essentially completely resolved. Headache is a 5 out of 10. Chest pain is now more of a chest pressure and much improved. At this time we discussed disposition, patient would prefer to be discharged with all possible. She is agreeable to awaiting a repeat troponin and EKG. I would also like to trial ambulate her. I did explain to her given her age, committees, symptoms, observation admission was also reasonable but she does decline this. Patient was ambulatory to the restroom without any difficulty. Repeat EKG performed at 2135, please see official report by Dr. Richardson. Sinus rhythm, ventricular rate 76. No STEMI. Repeat troponin remains less than 0.05. Patient reports dizziness has resolved completely. Headache is now down to a 3 or 4 out of 10, and is manageable. Reports no chest pain, shortness of breath, diaphoresis. Patient continues to prefer to go home. She was given strict return precautions. She has no additional questions or concerns and is comfortable with this plan. Upon discharge she is ambulating without difficulty, neurologically intact. She was encouraged to contact her primary care provider to discuss outpatient reevaluation of her ongoing headaches and also discuss her chest pain. We discussed that outpatient stress test and/or echocardiogram may be indicated for her ongoing symptoms. Medical Records Medical records reviewed: Yes I reviewed the patient's medical records. Imaging Data Radiologic Study: Attestation: I personally reviewed and interpreted this imaging study as follows: Imaging: X-Ray Radiologist's impression: Chest x-ray read by radiology as mild cardiomegaly with no acute cardiopulmonary process. Lab Data Lab results reviewed: Yes I reviewed the patient's lab results. Lab results narrative: Laboratory Tests Range/Units 06/12/20 06/12/20 06/12/20 18:50 18:50 18:50 WBC (4.4-10.8) 10^3/uL 9.52 RBC (3.93-5.22) 10^6/uL 4.43 Hgb (11.2-15.7) g/dL 12.3 Hct (36.0-46.0) % 37.8 MCV (80-95) fL 85.3 MCH (27.0-33.0) pg 27.8 MCHC (32.0-36.0) % 32.5 RDW (11.7-14.6) % 13.4 Plt Count (130-400) 10^3/uL 295 MPV (8.0-11.0) fL 10.4 Immature Gran % 0.4 Neutrophils % 55.1 Lymphocytes % 27.7 Monocytes % 10.6 Eosinophils % 5.7 Basophils % 0.5 Nucleated RBC % % 0 Absolute Neutrophils (1.2-6.7) 10^3/uL 5.24 Absolute Lymphocytes (1.2-3.4) 10^3/uL 2.64 Absolute Monocytes (0.1-0.8) 10^3/uL 1.01 H Absolute Eosinophils (0.0-0.7) 10^3/uL 0.54 Absolute Basophils (0.0-0.2) 10^3/uL 0.05 PT (9.3-11.0) sec 9.4 INR (0.9-1.1) 0.9 APTT (21.0-27.5) sec 20.0 L Sodium (136-145) mmol/L 139 Potassium (3.5-5.1) mmol/L 3.8 Chloride (98-107) mmol/L 103 Carbon Dioxide (21.0-32.0) mmol/L 28.1 Anion Gap (3-11) mmol/L 7.9 BUN (7-18) mg/dL 17 Creatinine (0.55-1.02) mg/dL 0.8 Estimated GFR/1.73 m2 (mL/min/1.73m2) >= 60.00 Glucose (74-106) mg/dL 115 H Calcium (8.5-10.1) mg/dL 8.6 Magnesium (1.8-2.4) mg/dL 2.1 Total Bilirubin (0.2-1.0) mg/dL 0.2 AST (15-37) U/L 11 L ALT (14-59) U/L 23 Alkaline Phosphatase (46-116) U/L 100 Troponin I (<0.06) ng/mL < 0.05 Total Protein (6.4-8.2) g/dL 7.2 Albumin (3.4-5.0) g/dL 3.5 Range/Units 06/12/20 21:15 WBC (4.4-10.8) 10^3/uL RBC (3.93-5.22) 10^6/uL Hgb (11.2-15.7) g/dL Hct (36.0-46.0) % MCV (80-95) fL MCH (27.0-33.0) pg MCHC (32.0-36.0) % RDW (11.7-14.6) % Plt Count (130-400) 10^3/uL MPV (8.0-11.0) fL Immature Gran % Neutrophils % Lymphocytes % Monocytes % Eosinophils % Basophils % Nucleated RBC % % Absolute Neutrophils (1.2-6.7) 10^3/uL Absolute Lymphocytes (1.2-3.4) 10^3/uL Absolute Monocytes (0.1-0.8) 10^3/uL Absolute Eosinophils (0.0-0.7) 10^3/uL Absolute Basophils (0.0-0.2) 10^3/uL PT (9.3-11.0) sec INR (0.9-1.1) APTT (21.0-27.5) sec Sodium (136-145) mmol/L Potassium (3.5-5.1) mmol/L Chloride (98-107) mmol/L Carbon Dioxide (21.0-32.0) mmol/L Anion Gap (3-11) mmol/L BUN (7-18) mg/dL Creatinine (0.55-1.02) mg/dL Estimated GFR/1.73 m2 (mL/min/1.73m2) Glucose (74-106) mg/dL Calcium (8.5-10.1) mg/dL Magnesium (1.8-2.4) mg/dL Total Bilirubin (0.2-1.0) mg/dL AST (15-37) U/L ALT (14-59) U/L Alkaline Phosphatase (46-116) U/L Troponin I (<0.06) ng/mL < 0.05 Total Protein (6.4-8.2) g/dL Albumin (3.4-5.0) g/dL ECG Data Attestation: I personally reviewed and interpreted this ECG (s) as follows: Interpretation: Please see official report by Dr. Corral. Sinus rhythm, kushal tricular rate of 62. No STEMI. HPI General Mode of arrival: EMS . Date/Time Provider Initiated Documentation: 06/12/20 18:44 . Limitations to Documentation: no limitations . Information obtained by: patient and EMS . HPI Narrative: This is a 59-year-old female with a past medical history that includes hypertension, GERD, migraines, obesity, hyperlipidemia, presenting to the ER via EMS for evaluation. Patient states that approximately 1 hour ago she developed a global headache, moderate- severe, worse in the bilateral temporal region. She states that she then developed a feeling of dizziness like the room is spinning that was exacerbated by movement of her eyes and/or head. Patient states that she is being evaluated for her ongoing migraines, recent MRI revealed question of aneurysm, she was referred to [facility]. [facility] is requesting that she has a CTA of her head neck prior to their evaluation. Patient states that this is set up to be done in the near future by her primary care provider. Patient states that her headache is very typical of her chronic headaches, however the dizziness is somewhat different. Patient was recently prescribed any medication for her migraines but did not take any today. She states shortly after the headache and dizziness began, she developed substernal chest pain and diaphoresis. The pain did not radiate anywhere. She describes his pain as moderate. She later tells me that she actually had chest pain last night but thought it was just GERD. She was given nitro, aspirin, Zofran by EMS. Reports that her nausea is improving but that the nitro and aspirin have not really made her symptoms. She denies visual changes, neck pain, shortness of breath, cough, abdominal pain, vomiting, change in bowel or bladder function, numbness, tingling, weakness. Related Data Home Medications Medication Instructions Recorded Confirmed Excedrin Migraine Tablet 2 ea PO daily prn 03/24/13 06/12/20 acetaminophen 1,000 mg PO Q8H PRN #90 tab 05/29/19 06/12/20 fexofenadine 180 mg tablet 180 mg PO DAILY 10/27/19 06/12/20 omeprazole 20 mg capsule,delayed 20 mg PO BID #90 cap 11/21/19 06/12/20 release nystatin 100,000 unit/gram topical 1 applic TP TID PRN #30 gm 02/24/20 06/12/20 cream lisinopril 40 mg tablet 40 mg PO DAILY #90 tab 04/08/20 06/12/20 meloxicam 15 mg tablet 15 mg PO DAILY #30 tab 05/10/20 06/12/20 xbmujikkyg-oyqlznnsuxnzl-lpbslqvj 1 cap PO BID PRN #30 cap 06/07/20 06/12/20 50 mg-300 mg-40 mg capsule cetirizine 10 mg tablet 10 mg PO DAILY PRN 06/07/20 06/12/20 pravastatin 20 mg tablet 20 mg PO QPM #90 tab 06/07/20 06/12/20 Previous Rx's Medication Instructions Recorded acetaminophen 1,000 mg PO Q8H PRN #90 tab 05/29/19 omeprazole 20 mg capsule,delayed 20 mg PO BID #90 cap 11/21/19 release nystatin 100,000 unit/gram topical 1 applic TP TID PRN #30 gm 02/24/20 cream lisinopril 40 mg tablet 40 mg PO DAILY #90 tab 04/08/20 meloxicam 15 mg tablet 15 mg PO DAILY #30 tab 05/10/20 [id number]-fyyawuyndsimg-vbjkibgc 1 cap PO BID PRN #30 cap 06/07/20 50 mg-300 mg-40 mg capsule pravastatin 20 mg tablet 20 mg PO QPM #90 tab 06/07/20 Allergies Allergy/AdvReac Type Severity Reaction Status Date / Time adhesive Allergy Intermediate SKIN Verified 06/12/20 19:03 RASH/blisters codeine AdvReac Intermediate NAUSEA Verified 06/12/20 19:03 NSAIDS (Non-Steroidal AdvReac Unknown GI Verified 06/12/20 19:03 Anti-Inflamma oxycodone AdvReac Unknown LOOPY Verified 06/12/20 19:03 enviromental Allergy itchy Uncoded 06/12/20 19:03 watery eyes hemp Allergy sneezing, Uncoded 06/12/20 19:03 coughing Perfume AdvReac Mild Sinus Uncoded 06/12/20 19:03 congestion General Stated Complaint: Chest Pain CALOS: 2 Review of Systems Constitutional Constitutional: Denies fatigue, Denies fever(s), Reports headache(s) and Denies weakness Eyes Eyes: Denies change in vision ENT Ears, Nose, Mouth, and Throat: Reports dizziness, Reports headache(s) and Denies neck pain Cardiovascular Cardiovascular: Reports chest pain and Denies dyspnea Respiratory Respiratory: Denies cough and Denies dyspnea Gastrointestinal Gastrointestinal: Denies abdominal pain, Reports nausea and Denies vomiting Genitourinary Genitourinary: Denies dysuria Musculoskeletal Musculoskeletal: Denies back pain, Denies neck pain, Denies numbness and Denies tingling Integumentary/Breasts Skin/Breast: Denies rash Neurologic Neurologic: Denies abnormal speech, Reports dizziness, Reports headache(s), Denies numbness, Denies tingling and Denies weakness Endocrine Endocrine: Denies fatigue Hematologic/Lymphatic Hematologic/Lymphatic: Denies easy bleeding and Denies easy bruising PFSH Medical History Rankin's esophagus determined by biopsy (~11/04/18) As per patient states she does not have it Colorectal polyp detected on colonoscopy Concern about sexually transmitted disease in female without diagnosis Depression Elevated cholesterol Environmental allergies Essential hypertension Family history of brain aneurysm Gastritis determined by endoscopy (~11/04/18) GERD (gastroesophageal reflux disease) (12/22/13) PT. 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 Tubular adenoma of colon (~11/04/18) Vaginal dryness Surgical History Appendectomy section X 3 H/O esophagogastroduodenoscopy (~11/04/18) Hysterectomy, Laproscopic (~1991) STILL HAS RIGHT OVARY S/P colonoscopy (~11/04/18) Status post total left knee replacement (05/27/19) 05/27/19 Status post total right knee replacement Family History Mother Essential hypertension Hyperlipidemia Father , 84 Diabetes Essential hypertension Heart disease Hyperlipidemia Cancer of kidney Skin cancer Sister Diabetes Essential hypertension Depression Hyperlipidemia Asthma Sister , 49 Diabetes Essential hypertension Hyperlipidemia Lung cancer Liver cancer Sister No problems noted. Brother Diabetes Essential hypertension Hyperlipidemia Maternal Grandfather , 78 Primary tuberculosis Heart disease Paternal Grandfather , 85 Diabetes Essential hypertension Heart disease Hyperlipidemia Maternal Grandmother , 69 Essential hypertension Heart disease Hyperlipidemia Paternal Grandmother Essential hypertension Colon cancer Daughter , 8 AML (acute myeloblastic leukemia) Son No problems noted. Son No problems noted. Social History Smoking/Tobacco Use Status: Former Tobacco Use Quit Date: 03/26/02 Tobacco: How many years used: 20 Second Hand Exposure: Yes Smoking risk assessment performed?: Yes Alcohol Intake: never Drug use: Never Substance use type: does not use Caregiver/Support person: No Foster care: No Household members: spouse Housing: house Number of Children: 2 number of grandchildren: 11 Communication Needs: None Do you need help understanding health information?: Rarely Pets and animals: Yes Pets and animals: cat(s) and dog(s) Sexually active: No Do you think of yourself as: straight/heterosexual Current gender identity: female What is your relationship status?: How often do you talk on the phone with friends or family?: decline to answer How often do you get together with friends or relatives?: decline to answer How often do you attend synagogue or anabaptism services?: decline to answer Do you belong to any clubs or organized social groups?: no Panel score (0-1 are the most socially isolated patients): 1 What type of physical activity do you participate in: decline to answer Duration: 15-30 minutes/day Frequency: 1-2 times per week Rachel/Mandaeism: Mu-Ism Special rachel needs: No Helmet use: No Drive intox or ride w/intox personal driver: No Do you feel safe at home: Yes Do you feel safe in your relationship?: Yes Exam Const General: cooperative, healthy appearing, comfortable and no acute distress Orientation: alert, awake and oriented x3 HENMT Head: normal to inspection, normocephalic and atraumatic Ears: external ears normal, TM's normal bilaterally and EAC's normal Face and sinus: normal facial exam Mouth: moist mucous membranes Throat: posterior oropharynx normal Eyes General: appearance normal, both eyes and all related structures Alignment and Position: alignment normal Periorbital: periorbital findings normal Eyelids: eyelids normal Conjunctivae: conjunctivae normal Sclera: sclerae normal Cornea: corneas normal Pupils: PERRL EOM: EOM intact bilaterally Direct ophthalmoscopy: normal light reflex Neck Neck: normal visual inspection, full ROM, no meningeal signs, trachea midline, supple and nontender Resp Effort & Inspection: normal respiratory effort and able to speak in complete sentences Auscultation: clear to auscultation bilaterally Cardio Rate: regular rate Rhythm: regular rhythm GI Palpation: soft, not firm, no guarding, no pulsatile masses and nontender Back/Spine/Pelvis Back: No back tenderness Skin General skin exam: no rashes or lesions noted Neuro General: patient alert, patient awake, patient oriented x3, moves all extremities and no focal motor deficits Cranial Nerves: CN's II-XI intact bilaterally Cognition: normal cognition Speech: speech normal Motor: muscle tone normal throughout, strength 5/5 throughout, no pronator drift , no movement abnormalities noted and no fasciculations Sensory Exam: no sensory deficits noted Coordination: Does not sway with eyes open Extrem General: normal to inspection, full ROM and capillary refill normal Psych Appearance: grossly normal Mental Status: mental status grossly normal Course Vital Signs Vital signs: Vital Signs Temperature 36.3 C L 06/12/20 18:39 Pulse 70 06/12/20 18:39 Respiratory Rate 16 06/12/20 18:39 Pulse Oximetry 92 06/12/20 18:39 Temperature 36.3 C L 06/12/20 18:39 Pulse 70 06/12/20 18:39 Respiratory Rate 16 06/12/20 18:39 Respiratory Effort 06/12/20 18:39 Pulse Oximetry 92 06/12/20 18:39 Oxygen Delivery Method Room Air 06/12/20 18:39 Oxygen Flow Rate 0 06/12/20 18:39 Pain Level 8 06/12/20 18:39 Lab/Test Results Lab/Test Results: Laboratory Tests Range/Units 06/12/20 18:50 WBC (4.4-10.8) 10^3/uL 9.52 RBC (3.93-5.22) 10^6/uL 4.43 Hgb (11.2-15.7) g/dL 12.3 Hct (36.0-46.0) % 37.8 MCV (80-95) fL 85.3 MCH (27.0-33.0) pg 27.8 MCHC (32.0-36.0) % 32.5 RDW (11.7-14.6) % 13.4 Plt Count (130-400) 10^3/uL 295 MPV (8.0-11.0) fL 10.4 Immature Gran % 0.4 Neutrophils % 55.1 Lymphocytes % 27.7 Monocytes % 10.6 Eosinophils % 5.7 Basophils % 0.5 Nucleated RBC % % 0 Absolute Neutrophils (1.2-6.7) 10^3/uL 5.24 Absolute Lymphocytes (1.2-3.4) 10^3/uL 2.64 Absolute Monocytes (0.1-0.8) 10^3/uL 1.01 H Absolute Eosinophils (0.0-0.7) 10^3/uL 0.54 Absolute Basophils (0.0-0.2) 10^3/uL 0.05
[2020-06-12 19:13] LABS: INR 0.9 (0.9-1.1); Prothrombin Time 9.4 sec (9.3-11.0)
[2020-06-12 19:14] LABS: ALT 23 U/L (14-59); AST 11 U/L (15-37); Albumin 3.5 g/dL (3.4-5.0); Alkaline Phosphatase 100 U/L (46-116); Anion Gap 7.9 mmol/L (3-11); BUN 17 mg/dL (7-18); Bilirubin, Total 0.2 mg/dL (0.2-1.0); CO2 28.1 mmol/L (21.0-32.0); CREATININE 0.8 mg/dL (0.55-1.02); Calcium 8.6 mg/dL (8.5-10.1); Chloride 103 mmol/L (98-107); Glucose 115 mg/dL (74-106); Magnesium 2.1 mg/dL (1.8-2.4); Potassium 3.8 mmol/L (3.5-5.1); Sodium 139 mmol/L (136-145); Total Protein 7.2 g/dL (6.4-8.2)
[2020-06-12 19:16] LABS: Troponin I < 0.05 ng/mL (<0.06)
[2020-06-12] MEDS: Omnipaque 350 MG/ML 100 ML BTL IJ (19:29)
[2020-06-12] MEDS: Normal Saline - Diluent 50 ML VIAL IV (19:30)
--- NOTE | 2020-06-12 19:44 | DI.VRAD_ITS ---
Addendum created by Geoffrey Choe MD on 06/12/2020 7:44:04 PM EDT: THIS REPORT CONTAINS FINDINGS THAT MAY BE CRITICAL TO PATIENT CARE. The findings were verbally communicated via telephone conference with Dr. Corral at 7:43 PM EDT on 06/12/2020. The findings were acknowledged and understood. Initial report created on 06/12/2020 7:43:42 PM EDT: PROCEDURE INFORMATION: Exam: CT Angiography Head With Contrast Exam date and time: 06/12/2020 7:12 PM Age: 59 years old Clinical indication: Dizziness and giddiness; Patient HX: Sudden onset dizziness TECHNIQUE: Imaging protocol: Computed tomography angiography of the head with intravenous contrast. 3D rendering (Not supervised by radiologist): MIP and/or 3D reconstructed images were created by the technologist. COMPARISON: MR ANGIO BRAIN WO 05/13/2020 8:11 AM FINDINGS: ANTERIOR CIRCULATION: Right internal carotid artery: Unremarkable. Intracranial segment is patent with no significant stenosis. No aneurysm. Right middle cerebral artery: Unremarkable. No occlusion or significant stenosis. No aneurysm. Right anterior cerebral artery: Unremarkable. No occlusion or significant stenosis. No aneurysm. Left internal carotid artery: Unremarkable. Intracranial segment is patent with no significant stenosis. No aneurysm. Left middle cerebral artery: Unremarkable. No occlusion or significant stenosis. No aneurysm. Left anterior cerebral artery: Unremarkable. No occlusion or significant stenosis. No aneurysm. POSTERIOR CIRCULATION: Right vertebral artery: Unremarkable. No occlusion or significant stenosis. No aneurysm. Left vertebral artery: Unremarkable. No occlusion or significant stenosis. No aneurysm. Basilar artery: Unremarkable. No occlusion or significant stenosis. No aneurysm. Right posterior cerebral artery: Unremarkable. No occlusion or significant stenosis. No aneurysm. Left posterior cerebral artery: Unremarkable. No occlusion or significant stenosis. No aneurysm. Brain: No intracranial mass, acute infarct or recent hemorrhage is detected. Cerebral ventricles: No midline shift or hydrocephalus evident. Bones/joints: Unremarkable. No acute fracture. Soft tissues: Unremarkable. IMPRESSION: No large vessel stenosis or occlusion detected involving the major branches of the anterior or posterior intracranial circulation. PROCEDURE INFORMATION: Exam: CT Angiography Neck With Contrast Exam date and time: 06/12/2020 7:12 PM Age: 59 years old Clinical indication: Dizziness and giddiness; Patient HX: Sudden onset dizziness TECHNIQUE: Imaging protocol: Computed tomography angiography of the neck with intravenous contrast. 3D rendering (Not supervised by radiologist): MIP and/or 3D reconstructed images were created by the technologist. COMPARISON: MR ANGIO BRAIN WO 05/13/2020 8:11 AM FINDINGS: Right common carotid artery: No stenosis. No dissection or occlusion. Right internal carotid artery: No stenosis of the extracranial segment. No dissection or occlusion. Right external carotid artery: No occlusion or stenosis of the origin. Right vertebral artery: No stenosis. No dissection or occlusion. Left common carotid artery: No stenosis. No dissection or occlusion. Left internal carotid artery: No stenosis of the extracranial segment. No dissection or occlusion. Left external carotid artery: No occlusion or stenosis of the origin. Left vertebral artery: No stenosis. No dissection or occlusion. Bones/joints: No acute fracture. Soft tissues: Normal. No significant soft tissue swelling. IMPRESSION: No evidence of 50% or greater stenosis involving the cervical segments of the right or left internal carotid arteries by NASCET criteria. REFERENCES: NASCET CRITERIA. The degree of internal carotid artery stenosis is based on NASCET criteria. Normal is no stenosis. Mild is less than 50% stenosis. Moderate is 50-69% stenosis. Severe is 70% to 99% stenosis. Total occlusion is no detectable patent lumen. Dictated and Authenticated by: Geoffrey Choe MD. Ordering:VAISHNAVI Weeks MD
--- NOTE | 2020-06-12 19:46 | DI.VRAD_ITS ---
PROCEDURE INFORMATION: Exam: XR Chest Exam date and time: 06/12/2020 7:26 PM Age: 59 years old Clinical indication: Chest pain TECHNIQUE: Imaging protocol: XR of the chest Views: 2 views. COMPARISON: CT CHEST PE CTA 04/30/2019 9:18 AM FINDINGS: Lungs: No parenchymal mass or consolidation detected. Pleural spaces: No pneumothorax or pleural effusion detected. Heart/Mediastinum: There is mild cardiomegaly and vessel margins are sharply defined. Bones/joints: No acute osseous lesions are detected. IMPRESSION: Mild cardiomegaly with no acute cardiopulmonary process detected. Dictated and Authenticated by: Geoffrey Choe MD. Ordering:VAISHNAVI Weeks MD
[2020-06-12] MEDS: Ondansetron 4 MG/2 ML VIAL IVP (20:24)
[2020-06-12] MEDS: Meclizine 25 MG TAB PO (20:24)
[2020-06-12] MEDS: Butalbital/Acetaminophen/Caffeine 50/325/40 TAB PO (20:24)
--- NOTE | 2020-06-12 21:15 | RT.EKG_ITS ---
APPROVED REPORT Exam: Resting ECG Patient Location: E HR:76 bpm ECG Measurements Heart Rate 76 AXIS WV 154 P 44 QRSd 96 QRS 12 QT 373 T 44 QTc 419 Conclusion Sinus rhythm...normal P axis, V-rate 60- 99 Nonspecific T abnormalities, anterior leads...T <-0.10mV, V2-V4 There are no significant changes compared to prior EKG performed on 06/12/2020 at 18:49.
[2020-06-12 21:38] LABS: Troponin I < 0.05 ng/mL (<0.06)
== END 2020-06-12 20:20 | disposition home or self-care (01) ==
PROVIDERS: Emergency Provider Physician Assistant; PCP Nurse Practitioner
DX: G44.89 Other headache syndrome (principal); R07.9 Chest pain, unspecified; R42 Dizziness and giddiness
CPT/HCPCS: 70496; 70498; 80053; 93005; 96374; 99285; 71046; 83735; 84484; 85025; 85610; 85730; 93010; 99284; J2405; J3490

== ENCOUNTER 2020-07-13 00:56 | Outpatient (CLI) | payer MEDICAID, SELFPAY ==
--- NOTE | 2020-07-13 06:30 | DI.US_ITS ---
APPROVED REPORT EXAM: Comprehensive 2D, Doppler, and color-flow Echocardiogram Patient Location: Out-Patient Chemist Organic: Cathy Avery RDCS (AE) Indications: Chest pain, HTN Other Information Study Quality: Adequate Conclusion Normal left ventricular wall thickness and chamber size. Estimated ejection fraction is 60 to 65%. There are no segmental wall motion abnormalities Normal right ventricular size and systolic function Both atria are normal in size Mildly thickened aortic valve leaflets. Aortic valve is trileaflet with trace regurgitation Normal mitral valve with trace to mild regurgitation Normal tricuspid valve with trace to mild regurgitation. Normal estimated right ventricular systolic pressure Normal pulmonic valve with trace regurgitation Wall motion Left Ventricle The left ventricle is normal size. The left ventricular systolic function is normal. The left ventric ular ejection fraction is within the normal range. There is normal left ventricular wall thickness. T here is normal LV segmental wall motion. There is no ventricular septal defect visualized. LVEF is 63 %. Right Ventricle Right ventricle is grossly normal in size. Right ventricular systolic function is grossly normal. The RVSP is 18.8 mmHg. Atria The left atrium size is normal. The right atrium size is normal. The interatrial septum is intact wit h no evidence for an atrial septal defect. Aortic Valve Mildly thickened aortic valve leaflets Aortic valve is trileaflet. There is no aortic valvular stenos is. Trace aortic regurgitation. Mitral Valve The mitral valve is normal in structure. No evidence of mitral valve stenosis. Trace to mild mitral r egurgitation. Tricuspid Valve The tricuspid valve is normal in structure. There is no tricuspid valve stenosis. Trace to mild tricu spid regurgitation. Pulmonic Valve The pulmonary valve is normal in structure. There is no pulmonic valvular stenosis. Trace pulmonic re gurgitation. Great Vessels The aortic root is normal in size. The ascending aorta is normal in size. Aortic arch is normal in ca liber. IVC is normal in size and collapses >50% with inspiration. Pericardium There is no pericardial effusion. 2D Dimensions IVSD d PLAX 0.90 cm F: 0.6-1.0 LV Vol A2C d MOD 95.0 mL LVPW d PLAX 0.96 cm F: 0.6 - 1.0 LV Vol A4C d MOD 79.7 mL LVID d PLAX 4.67 cm F: 3.8 - 5.2 LA vol/ BSA A2C s A-L 26.1 mL/m2 LVDs 3.15 cm F: 2.2 - 3.5 LA vol/ BSA A4C s A-L 11.0 mL/m2 Ao Root d 2.70 cm F: 2.7 - 3.3 LA Vol/ BSA Biplane s A-L 18.7 mL/m2 RA Area A4C 11.65 cm2 LA Area A4C s MOD 9.35 cm2 RA Vol/ BSA A4C s A-L 16.1 mL/m2 LA Area A2C s MOD 15.86 cm2 Ao Asc Diam d 3.18 cm F: 2.3 - 3.1 LV EF A4C MOD 63.4 % LV EF Teichholz 60.5 % LV EF A2C MOD 61.0 % LVEF (Hernandez's) 59.59 % F: 54 - 74 LV EF Biplane MOD 59.6 % LV Volume 69.30 mL F: 46 - 106 SV 52.70 mL LV Volume Index 39.37 mL/m2 F: 29 - 61 SV Index 29.89 mL/m2 LV Vol Biplane MOD 88.4 mL FS 32.20 % M-Mode TAPSE 1.82 cm (M/F) >1.7 LV Diastology MV E' medial 0.050 (>0.07 m/s) E/A Ratio 0.8 LV E/e MED 13.25 (<14) MV E Vmax 0.66 (0.4-1.3 m/s) MV E' lateral 0.049 (>0.1 m/s) MV A Vmax 0.85 (0.4-1.3 m/s) LV E/e LAT 13.60 (<14) MV E/A Ratio 0.77 MV E/E' medial 13.27 MV E/E' lateral 13.60 Aortic Valve LVOT Area 2.79 cm2 AoV Area Vmax 2.04 cm2 LVOT Vmax 1.01 m/s AoV Area/ BSA (Vmax) 1.16 cm2/m2 LVOT Mean Jadiel. 0.60 m/s CASSANDRA Mean Jadiel. 1.78 cm2 LVOT Peak Grad 4.1 mmHg CASSANDRA Mean Jadiel. Index 1.01 cm2/m2 LVOT Mean Grad 1.8 mmHg LVOT VTI 0.184 m LVOT Diam s 1.85 cm AoV Vmax 1.38 m/s Velocity Ratio 0.73 AoV Mean Jadiel. 0.95 m/s AoV Peak Grad 7.6 mmHg LVOT SV 51.25 mL AoV Mean Grad 4.1 mmHg AoV VTI 0.222 m AoV Area VTI 2.31 cm2 AoV Area/ BSA (VTI) 1.31 cm/m2 Mitral Valve MV DT 215 (160-240 msec) MV PHT 62 msec MV Area PHT 3.52 cm2 MV VTI 0.266 m MV Area VTI 1.93 (4.0-6.0 cm2) Pulmonary Valve PV Vmax 0.95 (0.5-1.5 m/s) RVOT Peak Gr. 1.28 mmHg PV Peak Grad 3.6 mmHg RVOT Mean Gr. 0.60 mmHg PV Mean Grad 1.8 mmHg RVOT VTI 0.128 m PV VTI 0.190 m RVOT Vmax 0.57 m/s Tricuspid Valve TR Peak Grad 15.7 mmHg TR Vmax 1.98 m/s RA Pressure 3.00 mmHg RVSP (TR) 18.8 mmHg
--- NOTE | 2020-07-13 06:30 | DI.NM_ITS ---
APPROVED REPORT Exam: Exercise Treadmill Patient Location: Out-Patient Room/Bed: Stress Nurse: Jessika Duenas RN Ordering Provider:MARNIE LORA, Contact Number: [phone] BMI: 36.14 Baseline Rhythm: Sinus Rhythm Indications: CHEST PAIN RADIATING TO JAW, HTN, ELEVATED CHOLESTEROL Medical History Cardiac Medications: Lisinopril, HCTZ, Pravastatin, Omeprazole Allergies: Hemp, Perfume, Oxycodone, Environment, Adhesive, Codeine, NSAIDS Cardiac Risk Factors: HTN, Hyperlipidemia, Smoking (former), FHX of CAD Previous Cardiac Procedures: None Pretest Chest Pain Characteristics: No chest pain Exercise History: Sedentary Physical Disabilities: None Lung Sounds: Clear to auscultation Heart Sounds: Regular Stress Test Details Test: Exercise stress testing was performed using a Jose protocol. Nuclear Acquisition: Rest Tc-99m/Stress Tc-99m 1 day Rest Isotope: Tc-99m Sestamibi. Dose: 12.1 Date: 07/13/20 Injection Time: 0845 Stress Isotope: Tc-99m Sestamibi. Dose: 36.0 Date: 07/13/20 Injection Time: 1100 HR Resting HR Supine: 68 bpm Max Heart Rate (APMHR): 161.718665 bpm Resting HR Standin bpm Target HR (85% APMHR): 136.829148 bpm Max HR Achieved: 148 bpm % of APMHR: 91.93 Recovery HR: 85 bpm HR response to stress: Normal HR response to stress BP Resting BP Supine: 144/88 mmHg Resting BP Standin/88 mmHg Max BP: 158/82 mmHg Recovery BP: 146/82 mmHg BP response to stress: Normal blood pressure response to stress. ECG Resting ECG: Sinus Rhythm Ectopy: None Stress ECG: Sinus Tachycardia ST Change: No significant ST segment changes noted Arrhythmia: None Recovery ECG: Sinus Rhythm Recovery ST Change: No significant ST segment changes noted Recovery Arrhythmia: None Clinical Reason for Termination: Terminated by automobile glass technician due to inability to read EKG Stress Symptoms: Dyspnea, General Fatigue Exercise duration: 5 min16 sec Highest Stage Reached: Stage 2: 2.5 mph at 12% grade. Exercise capacity: 7.05 METs Rate Pressure Product: [id number] Stress ECG Conclusion 1. Resting electrocardiogram was normal 2. Patient exercised on the Jose protocol and completed a workload of 7.05 METS, limited by dyspnea and fatigue 3. Normal heart rate and blood pressure response to exercise. The patient achieved 91% of predicted heart rate for age 4. There were no significant dysrhythmias Stress Test Summary STAGE Time (mins) Speed (mph) Grade (%) HR BP SYMPTOMS METS Supine 68 144/88 Standing 98 130/88 1 3 1.7 10 132 152/84 4.6 1 min recovery 122 158/82 3 min recovery 86 150/78 6 min recovery 85 146/82 MPI Conclusion Normal myocardial perfusion without evidence of ischemia or prior infarction EF is 65% Radiologist Interpretation Radiologist agrees with Life Science Technical Officer's Interpretation. Radiologist Interpretation by: Rodriguez Encarnacion MD Interpretation Date/Time: 07/13/2020 15:15:50
== END 2020-07-13 01:16 ==
PROVIDERS: PCP Nurse Practitioner; Visit Provider Nurse Practitioner
DX: R07.9 Chest pain, unspecified (principal); I10 Essential (primary) hypertension; E78.00 Pure hypercholesterolemia, unspecified; I08.1 Rheumatic disorders of both mitral and tricuspid valves; Z87.891 Personal history of nicotine dependence; Z82.49 Family history of ischemic heart disease and other diseases of the circulatory system
CPT/HCPCS: 78452; 93017; 93306

== ENCOUNTER 2020-09-14 01:58 | Outpatient (CLI) | payer MEDICAID, SELFPAY ==
--- NOTE | 2020-09-14 07:45 | DI.MAMMO_ITS ---
Exam(s) MAMMO SCREENING EXAM: MAMMO SCREENING CLINICAL HISTORY: screening,z12.39 TECHNIQUE: Mammograms were interpreted according to the usual protocol including computer analysis w [employer] CAD system, tomosynthesis and C-view imaging. COMPARISON: FINDINGS: The breasts are of moderate density with fairly symmetrical distribution of fibroglandular tissue. N o dominant mass or clumped microcalcification is identified in either breast. The current examinatio n is compared with previous examinations including August 2019. There is interval growth of well-circu mscribed nodule of the central superior portion of the left breast. Additionally there is increased prominence of areas of nodularity projected inferiorly on the MLO view of the left breast. I would r ecommend that left breast ultrasound be performed for evaluation of these findings, also additional m ammographic spot compression views of the left breast recommended. On the right there is increased prominence of a focal area of asymmetric density projected just media l to the midline in the central portion of the breast on the CC view only. Spot compression view and breast ultrasound on the right are also recommended. IMPRESSION: Additional mammographic views of both breasts and bilateral breast ultrasound recommended as describe d above. BI-RADS Category 0 - Assessment Incomplete: Need additional imaging evaluation Breast Density - Category B - Scattered areas of fibroglandular density
== END 2020-09-14 02:18 ==
PROVIDERS: PCP Nurse Practitioner; Visit Provider Nurse Practitioner
DX: Z12.31 Encounter for screening mammogram for malignant neoplasm of breast (principal); R92.8 Other abnormal and inconclusive findings on diagnostic imaging of breast
CPT/HCPCS: 77063; 77067

== ENCOUNTER 2020-09-29 01:52 | Outpatient (CLI) | payer MEDICAID, SELFPAY ==
--- NOTE | 2020-09-29 | DI.US_ITS ---
Exam(s) US BREAST RT LIMITED US BREAST LT LIMITED MG MAMMO SCREEN CALL BACK BI EXAM: MG MAMMO SCREEN CALL BACK BI and bilateral limited breast ultrasound CLINICAL HISTORY: F/U MAMMO,INTERVAL GROWTH LT BREAST NODULE,INCREASED NODULARITY,RT ASYMMETR. TECHNIQUE: Craniocaudal and mediolateral oblique Full Field Digital Mammography views of the bilater al breast with Computer Aided Diagnosis followed by Tomosynthesis and bilateral breast ultrasound. COMPARISON: Priors available for comparison. FINDINGS: Mammography/Tomosynthesis: Masses/Architectural Distortion: There again seen well-circumscribed nodules in both breasts. No are as of architectural distortion are seen. Microcalcifictions: No suspicious pleomorphic-type are seen. Skin Thickening/Nipple Retraction: None. Bilateral breast US: Echotexture: Normal appearance of the glandular tissue. Shadowing: No suspicious foci. Cyst: Cysts are seen in both breasts. There is a 0.7 cm cyst at the 11 o'clock position of the right breast 5 cm from the nipple which corresponds to the mammographic abnormality. Cysts are seen in th e left breast, including a 0.3 cm cyst at the 12 o'clock position 5 cm from the nipple corresponding to the mammographic abnormality. Solid lesions: None seen. Ductal dilation: None. IMPRESSION: 1. No evidence of malignancy is noted. 2. Unless there is more urgent need, follow-up screening mammography is recommended, as per [employer] guidelines. 3. The findings were discussed with the patient on the date of the examination. BI-RADS Category 2 - Benign Findings Breast Density - Category B - Scattered areas of fibroglandular density Breast density Category C or D implies that the patient has dense breast tissue. Dense breast tissue can make it harder to find cancer on a mammogram. Dense breast tissue is also associated with an incr eased risk of breast cancer. This information about the result of the mammogram report was provided to the patient to raise their awareness. Use this report when you speak with the patient about their risks for breast cancer, which includes their family history. At that time, you may recommend additional screening tests (Ultrasoun d or MRI) as these tests may add significant information. A negative radiographic report should not delay biopsy if a dominant or clinically suspicious mass is present. Up to ten percent of cancers are not identified on mammography. A negative report may reinforce clinical impression. Adenosis and dense breasts may obscure an underlying neoplasm. False positive reports average 6 to 10%. Patient will receive a letter notifying them of these results.
== END 2020-09-29 02:12 ==
PROVIDERS: PCP Nurse Practitioner; Visit Provider Nurse Practitioner
DX: Z12.31 Encounter for screening mammogram for malignant neoplasm of breast (principal); N64.89 Other specified disorders of breast; R92.8 Other abnormal and inconclusive findings on diagnostic imaging of breast; N63.20 Unspecified lump in the left breast, unspecified quadrant; N63.10 Unspecified lump in the right breast, unspecified quadrant
CPT/HCPCS: 76642; 77063; 77067

== ENCOUNTER 2020-10-07 03:39 | Outpatient (CLI) | payer MEDICAID, SELFPAY ==
[2020-10-07 07:33] LABS: ESR 8 mm/hr (0-30)
[2020-10-07 09:23] LABS: C-Reactive Protein 0.51 mg/dL (0.0-0.3)
== END 2020-10-07 03:40 | disposition home or self-care (01) ==
LOC: LBO 03:39
PROVIDERS: PCP Nurse Practitioner; Visit Provider Student in an Organized Health Care Education/Training Program
DX: T84.84XA Pain due to internal orthopedic prosthetic devices, implants and grafts, initial encounter (principal); Z96.653 Presence of artificial knee joint, bilateral
CPT/HCPCS: 36415; 85652; 86140

== ENCOUNTER 2020-10-25 01:18 | Outpatient (CLI) | payer MEDICAID, SELFPAY ==
--- NOTE | 2020-10-25 06:45 | DI.MRI_ITS ---
Exam(s) MR LUMBAR SPINE WO EXAM: MR LUMBAR SPINE WO CLINICAL HISTORY: BACK PAIN, LUMBAR RADICULOPATHY,M54.16. TECHNIQUE: Multiplanar multisequence MRI of the Lumbar spine was performed. COMPARISON: There are no plain films of lumbar spine available time this MRI interpretation. FINDINGS: Five lumbar vertebrae are presumed. Conus medullaris is at normal level. There is no evidence of conus mass nor subjacent clumping of in trathecal nerve roots to suggest arachnoiditis. The distal thecal sac ends at the S1 level..There is no evidence of Tarlov intrasacral cysts nor other significant findings within the sacral canal Bones:There are no fractures nor ominous osseous lesions in the lumbar vertebral bodies and visualize d sacrum. Benign intraosseous hemangioma is noted in the L1 vertebral body. With respect to the individual levels... T12-L1: Unremarkable L1-2: Normal disc height and signal. There is broad symmetrical annular bulging at this level. Centr al canal dimensions are lower normal. No foraminal stenosis. Mild facet arthropathy. L2-3: Normal disc height. No disc herniation nor central canal stenosis.No foraminal stenosis.No face t arthropathy. L3-4: Normal disc height. There is a central-subligamentous disc protrusion at this level. This ext ends posteriorly 3 millimeters indenting thecal sac and is approximately 9 millimeters wide. Is mild central spinal canal stenosis due to combination of this disc protrusion, which developmental short AP dimensions the pedicles, as well as moderate degenerative changes in both facet joints.There is, h owever, no significant foraminal stenosis on either side at this level. L4-5: Normal disc height. There is a central-left paracentral disc protrusion at this level which ex tends posteriorly 2 millimeters and is approximately 8 millimeters wide. This extends caudally behin d L5 vertebral body for distance of 2 millimeters. There is an element of central spinal canal steno sis at this level which is due to a combination of this disc finding +developmental short AP dimensio ns the pedicles and moderate degenerative changes in both facet joints. There is, however, no signif icant foraminal stenosis on either side at this level L5-S1: There is advanced disc space narrowing at this level, more prominent narrowing being on the le ft than the right side of this disc space. There is broad annular bulging at this level with a super imposed central disc it will subligamentous disc protrusion which extends posteriorly 1.5 millimeters and is approximately 4 millimeters wide, indenting the thecal sac. There is mild central canal sten osis at this level. There is no prominent foraminal stenosis. Mild facet arthropathy. Soft tissues: paraspinal soft tissues appear unremarkable. IMPRESSION: 1. Multilevel findings as described individually above at L3-4, L4-5, and L5-S1 levels. 2. At all of these 3 spaces there is an element of mild central canal stenosis due to the disc findin gs and compound by the developmental short AP dimensions of the pedicles and some facet arthropathy a t these levels. 3. No significant foraminal stenosis evident at L3-4 and L4-5 levels. At L5-S1 level foraminal dimen sions are lower normal. Benign intraosseous hemangioma incidentally noted in the L1 vertebral body. DATA REPOSITORY:
== END 2020-10-25 01:38 ==
PROVIDERS: PCP Nurse Practitioner; Visit Provider Student in an Organized Health Care Education/Training Program
DX: M48.07 Spinal stenosis, lumbosacral region (principal); M47.27 Other spondylosis with radiculopathy, lumbosacral region
CPT/HCPCS: 72148

== ENCOUNTER 2021-04-14 02:09 | Outpatient (CLI) | payer MEDICAID, SELFPAY ==
[2021-04-14 07:16] LABS: HCT 39.5 % (36.0-46.0); HGB 12.5 g/dL (11.2-15.7); MCH 27.8 pg (27.0-33.0); MCHC 31.6 % (32.0-36.0); MCV 87.8 fL (80-95); MPV 10.3 fL (8.0-11.0); Platelet Count 312 10^3/uL (130-400); RDW 12.9 % (11.7-14.6); RDW-SD 41.5 fL; WBC 11.21 10^3/uL (4.4-10.8)
[2021-04-14 08:15] LABS: ALT 19 U/L (14-59); AST 10 U/L (15-37); Albumin 4.1 g/dL (3.4-5.0); Alkaline Phosphatase 92 U/L (46-116); Anion Gap 6.5 mmol/L (3-11); BUN 16 mg/dL (7-18); Bilirubin, Total 0.4 mg/dL (0.2-1.0); CO2 29.5 mmol/L (21.0-32.0); CREATININE 0.9 mg/dL (0.55-1.02); Calcium 8.8 mg/dL (8.5-10.1); Calculated LDL 123 mg/dL (<100); Chloride 104 mmol/L (98-107); Cholesterol 215 mg/dL (<200); Glucose 94 mg/dL (74-106); HDL Cholesterol 48 mg/dL (40-60); Potassium 3.7 mmol/L (3.5-5.1); Sodium 140 mmol/L (136-145); Total Protein 7.1 g/dL (6.4-8.2); Triglyceride 222 mg/dL (<150)
== END 2021-04-14 02:10 | disposition home or self-care (01) ==
LOC: LBO 02:10
PROVIDERS: PCP Nurse Practitioner; Visit Provider Nurse Practitioner
DX: E78.00 Pure hypercholesterolemia, unspecified (principal); I10 Essential (primary) hypertension; R35.0 Frequency of micturition
CPT/HCPCS: 36415; 80053; 80061; 85027; 87077; 87086; 87186

== ENCOUNTER 2021-06-10 00:31 | Outpatient (CLI) | payer MEDICAID, SELFPAY ==
--- NOTE | 2021-06-10 | DI.MRI_ITS ---
Exam(s) MR ANGIO BRAIN WO EXAM: MR ANGIO BRAIN WO INDICATION: F/U CEREBRAL ANEURYSM WITHOUT RUPTURE,I67.1. COMPARISON: MR MR ANGIO BRAIN WO from 05/13/2020 TECHNIQUE: MR angiography of the [id number]-[id number] region was performed utilizing 3D [id number]-qwfuzt i maging. FINDINGS: The visualized internal carotid arteries appear intact, no aneurysm, stenosis, or dissection. Visualized vertebral arteries appear intact, no aneurysm, stenosis or dissection. Basilar artery appears normal, no aneurysm, stenosis, or dissection. The anterior cerebral arteries and major branch vessels appear intact. No aneurysm, stenosis, or dis section. The middle cerebral arteries and major branch vessels appear intact. No aneurysm, stenosis, or disse ction. The posterior cerebral arteries and major branch vessels appear intact. No aneurysm, stenosis, or di ssection. I would note that a questionable fusiform dilatation of proximal left posterior cerebral a rtery noted on prior examination of May 13, 2020 is not apparent on today's examination and toda y's examination appears to be of higher technical quality than the prior examination. IMPRESSION: Negative MR angiography, [id number] region.
== END 2021-06-10 00:51 ==
PROVIDERS: PCP Nurse Practitioner; Visit Provider Radiology Neuroradiology
DX: I67.1 Cerebral aneurysm, nonruptured (principal)
CPT/HCPCS: 70544

== ENCOUNTER 2021-10-19 03:52 | Outpatient (CLI) | payer MEDICAID, SELFPAY ==
[2021-10-19 08:06] LABS: Hemoglobin A1C 5.9 % (<5.7)
[2021-10-19 08:10] LABS: TSH (W/Ref FT4) 1.22 uIU/mL (0.36-3.74)
[2021-10-20 09:53] LABS: Insulin 29.2 uIU/mL (<29.0)
== END 2021-10-19 03:53 | disposition home or self-care (01) ==
LOC: LBO 03:53
PROVIDERS: PCP Nurse Practitioner; Visit Provider Nurse Practitioner
DX: E66.9 Obesity, unspecified (principal); R63.5 Abnormal weight gain
CPT/HCPCS: 36415; 83036; 83525; 84443

== ENCOUNTER → 2021-11-02 02:08 | Outpatient (CLI) | payer MEDICAID, SELFPAY ==
--- NOTE | 2021-11-02 07:00 | DI.US_ITS ---
Exam(s) US ABDOMEN EXAM: US ABDOMEN INDICATION: ruq pain after eating,r10.11 COMPARISON: US US BREAST LT LIMITED from 09/29/2020 TECHNIQUE: Ultrasound abdomen performed using standard protocol FINDINGS: Abdominal ultrasound was performed according to the usual protocol. The liver is normal in size and shape. No focal hepatic lesion seen. Hepatic parenchyma appears mild ly echogenic which may reflect hepatic steatosis. There is no evidence of cholelithiasis or biliary dilatation. No gallbladder wall thickening or peric holecystic fluid collection. Portal venous flow is hepatopetal. Pancreas is not well visualized due to overlying bowel gas.. Spleen is unremarkable in appearance with no focal lesion. Kidneys are normal in size and shape. No renal mass, hydronephrosis, or nephrolithiasis. Abdominal aorta and IVC are of normal diameter. IMPRESSION: Negative abdominal ultrasound .
--- NOTE | 2021-11-02 07:55 | DI.MAMMO_ITS ---
Exam(s) MAMMO SCREENING EXAM: MAMMO SCREENING CLINICAL HISTORY: screening,z12.39 TECHNIQUE: Mammograms were interpreted according to the usual protocol including computer analysis w [employer] CAD system, tomosynthesis and C-view imaging. COMPARISON: FINDINGS: The breasts are of moderate density with fairly symmetrical distribution of fibroglandular tissue. T here are multiple small well-circumscribed breast nodules bilaterally which appear stable in comparis on with prior examinations including August 2019. There is a new breast mass of the upper outer quadra nt of the right breast, this measures about 9 millimeters in diameter and the borders are partially o bscured. Additional mammographic views are requested to include spot compression views in MLO and CC projection. Breast ultrasound recommended as well. Additionally, in the left breast, previously noted well-circumscribed mass projected in the upper out er quadrant has increased in size and now measures about 9 millimeters in diameter. Ultrasound exami nation recommended to evaluate this mass.. IMPRESSION: New mass of right breast, additional mammographic views and breast ultrasound recommended. Increase in size of well-circumscribed left breast mass, ultrasound evaluation recommended. BI-RADS Category 0 - Assessment Incomplete: Need additional imaging evaluation Breast Density - Category B - Scattered areas of fibroglandular density
== END ==
PROVIDERS: PCP Nurse Practitioner; Visit Provider Nurse Practitioner
DX: R10.11 Right upper quadrant pain (principal); Z12.31 Encounter for screening mammogram for malignant neoplasm of breast; R92.8 Other abnormal and inconclusive findings on diagnostic imaging of breast
CPT/HCPCS: 77063; 77067; 76700

== ENCOUNTER → 2021-11-09 01:23 | Outpatient (CLI) | payer MEDICAID, SELFPAY ==
--- NOTE | 2021-11-09 | DI.US_ITS ---
Exam(s) MG MAMMO SCREEN CALL BACK UNI US BREAST RT LIMITED US BREAST LT LIMITED EXAM: US BREAST RT LIMITED CLINICAL HISTORY: NEW MASS RT BREAST TECHNIQUE: Ultrasound performed using standard protocol. COMPARISON: US US ABDOMEN from 11/02/2021 FINDINGS: Additional mammographic views of the right breast and bilateral breast ultrasound were obtained. New upper-outer quadrant right breast mass seen on recent mammogram is confirmed on spot compression views and appears well circumscribed. On breast ultrasound this corresponds to a 6 millimeter in marielena meter cysts simple cyst in the 10 o'clock position 7 cm from the nipple. No solid mass identified in the right breast. Previously noted left breast mass had increased in size from prior examination. This appears to john espond to a 2 o'clock position 8 millimeter in diameter simple cyst seen on today's ultrasound examin ation. No solid mass identified. IMPRESSION: Bilateral breast masses are seen to be cystic. Follow-up mammogram suggested in 12 months. BI-RADS Cat 2 - Benign Findings Breast Density - Category B - Scattered areas of fibroglandular density DATA REPOSITORY:
== END ==
PROVIDERS: PCP Nurse Practitioner; Visit Provider Nurse Practitioner
DX: N63.11 Unspecified lump in the right breast, upper outer quadrant (principal); N60.01 Solitary cyst of right breast; N63.21 Unspecified lump in the left breast, upper outer quadrant; N60.02 Solitary cyst of left breast
CPT/HCPCS: 76642; 77063; 77067

== ENCOUNTER 2021-12-16 01:06 | Outpatient (CLI) | payer MEDICAID, SELFPAY | END 2021-12-16 01:07 | disposition home or self-care (01) | LOC: DS 01:07 | PROVIDERS: PCP Nurse Practitioner; Visit Provider Dietitian, Registered | DX: R73.09 Other abnormal glucose (principal); E66.8 Other obesity | CPT/HCPCS: 97802 ==

== ENCOUNTER 2022-03-30 02:33 | Outpatient (CLI) | payer MEDICAID, SELFPAY ==
[2022-03-30 07:44] LABS: HCT 40.3 % (36.0-46.0); HGB 12.9 g/dL (11.2-15.7); MCH 27.4 pg (27.0-33.0); MCV 86 fL (80-95); MPV 10.6 fL (8.0-11.0); Platelet Count 330 10^3/uL (130-400); RDW 13.1 % (11.7-14.6); RDW-SD 40.8 fL; WBC 8.47 10^3/uL (4.4-10.8)
[2022-03-30 08:19] LABS: ALT 17 U/L (14-59); AST 14 U/L (15-37); Albumin 3.7 g/dL (3.4-5.0); Alkaline Phosphatase 91 U/L (46-116); Anion Gap 9.5 mmol/L (3-11); BUN 17 mg/dL (7-18); Bilirubin, Total 0.3 mg/dL (0.2-1.0); CO2 28.5 mmol/L (21.0-32.0); Calcium 8.9 mg/dL (8.5-10.1); Calculated LDL 145 mg/dL (<100); Chloride 102 mmol/L (98-107); Cholesterol 235 mg/dL (<200); Estimated GFR 64.09 (mL/min/1.73m2); Glucose 104 mg/dL (74-106); HDL Cholesterol 49 mg/dL (40-60); Potassium 3.3 mmol/L (3.5-5.1); Sodium 140 mmol/L (136-145); Total Protein 7.6 g/dL (6.4-8.2); Triglyceride 207 mg/dL (<150)
== END 2022-03-30 02:34 | disposition home or self-care (01) ==
LOC: LBO 02:33
PROVIDERS: PCP Nurse Practitioner; Visit Provider Nurse Practitioner
DX: E78.00 Pure hypercholesterolemia, unspecified (principal); I10 Essential (primary) hypertension; R73.03 Prediabetes
CPT/HCPCS: 36415; 80053; 80061; 85027

== ENCOUNTER 2022-05-08 01:16 | Outpatient (CLI) | payer MEDICAID, SELFPAY ==
[2022-05-08 07:44] LABS: Anion Gap 10.7 mmol/L (3-11); BUN 12 mg/dL (7-18); CO2 27.3 mmol/L (21.0-32.0); Calcium 9.1 mg/dL (8.5-10.1); Chloride 102 mmol/L (98-107); Estimated GFR 64.09 (mL/min/1.73m2); Glucose 105 mg/dL (74-106); Potassium 3.9 mmol/L (3.5-5.1); Sodium 140 mmol/L (136-145)
== END 2022-05-08 01:17 | disposition home or self-care (01) ==
LOC: LBO 01:17
PROVIDERS: PCP Nurse Practitioner; Referring Provider Nurse Practitioner; Visit Provider Nurse Practitioner
DX: E87.6 Hypokalemia (principal); I10 Essential (primary) hypertension; E78.00 Pure hypercholesterolemia, unspecified
CPT/HCPCS: 36415; 80048

== ENCOUNTER 2022-06-20 01:33 | Outpatient (CLI) | payer MEDICAID, SELFPAY ==
--- NOTE | 2022-06-20 | DI.MRI_ITS ---
Exam(s) MR ANGIO BRAIN WO CLINICAL HISTORY: ANEURYSM OF OPHTHALMIC ARTERY, I67.1, CEREBRAL ANEURYSM F/U. TECHNIQUE: Multiplanar multisequence MRA of the brain was performed. COMPARISON: None. FINDINGS: Carotid Arteries: There is a focal dilatation arising from the left internal carotid artery distally. It measures 2-3 mm. It appears to arise either from the internal carotid artery or the origin of t he left ophthalmic artery. Anterior Cerebral Arteries: Right: No aneurysm, occlusion or significant stenosis. Left: No aneurysm, occlusion or significant stenosis. Middle Cerebral Arteries: Right: No aneurysm, occlusion or significant stenosis. Left: No aneurysm, occlusion or significant stenosis. Posterior Cerebral Arteries: Right: No aneurysm, occlusion or significant stenosis. Left: No aneurysm, occlusion or significant stenosis. Vertebral Arteries: Right: No aneurysm, occlusion or significant stenosis. Left: No aneurysm, occlusion or significant stenosis. Basilar Artery: No aneurysm, occlusion or significant stenosis. IMPRESSION: 2-3 mm dilatation arising from the left internal carotid artery at or near the origin of the left oph thalmic artery consistent with a small aneurysm. DATA REPOSITORY:
== END 2022-06-20 01:53 ==
LOC: DI 01:33
PROVIDERS: PCP Nurse Practitioner; Visit Provider Occupational Therapist
DX: I72.0 Aneurysm of carotid artery (principal); I72.8 Aneurysm of other specified arteries
CPT/HCPCS: 70544